=== PATIENT | female | born 1995 | race Caucasian/White ===

== ENCOUNTER 2018-11-12 23:49 | Observation (INO) | payer OTHER ==
[~2018-11-12] VITALS: Ht 170.2 cm; Wt 79.2 kg
[2018-11-13] MEDS ORDERED: FERROUS SULFAT325 MG PO (10:22)
[2018-11-13] MEDS ORDERED: PRENATAL ONE T1 EACH PO (10:23)
[2018-11-13] MEDS ORDERED: DULCOLAX5 MG PO (10:24)
--- NOTE | 2018-12-03 07:14 | PREHP ---
[facility] [address], [place] [address] Signed ADMISSION DATE: 11/12/2018 CHIEF COMPLAINT: bleeding. HISTORY OF PRESENT ILLNESS: Ms. Jack is a pleasant 23-year-old, G2, P2-0-0-2 white female who presents to the emergency department complaining of 1 hour of very heavy vaginal bleeding. The patient delivered six weeks ago at [facility] in [facility] and reports that her was uncomplicated. However, at the time of delivery, she did develop a hemorrhage that was treated with medicines and she did receive 2 units of transfusion. She reports that she was discharged without incidence on iron and that her bleeding continued approximately two weeks. She has had some spotting off and on, but early this morning or late last night, she developed acute onset of heavy vaginal bleeding, passing large clots. She complains of being lightheaded and very anxious. She does admit to intercourse earlier in the day and also vigorous exercise. PAST MEDICAL HISTORY: 1. History of hemorrhage. 2. History of IV drug use in the past. SURGICAL HISTORY: None. FAMILY HISTORY: Noncontributory. No family history of bleeding disorders. SOCIAL HISTORY: Denies tobacco, alcohol, or current drug use. 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 REVIEW OF SYSTEMS: A complete review of systems was performed, negative except per HPI. PHYSICAL EXAMINATION: GENERAL: The patient is a healthy-appearing 23-year-old, lying in hospital bed with a blood-soaked chucks and peripad. She appears anxious. HEENT: Normocephalic, atraumatic. NECK: Trachea midline. No masses. CHEST: Normal chest excursion. No shortness of breath. HEART: Regular rate and rhythm. LUNGS: Clear to auscultation bilaterally. ABDOMEN: Soft, nondistended, nontender. No surgical scars. Electronically Signed By: HAILEY WHEELER DO 12/03/18 0714 PATIENT NAME: CRISPIN JACK PREOPERATIVE H&P DATE OF : [birth year] REPORT #: [id number] PHYSICIAN: HAILEY WHEELER DO PCP: NO PRIMARY CARE PHYSICIAN REPORT IS CONFIDENTIAL AND NOT TO BE RELEASED WITHOUT AUTHORIZATION [facility] [address] [place], [place] [address] Signed EXTREMITIES: Normal. PELVIC: Slightly enlarged uterus, approximately eight weeks in size. The patient does have brisk bright red bleeding from the vagina. There is no vaginal laceration. The cervix appears normal. Bimanual evacuation of clot was performed and the uterus was massaged and the bleeding has stopped. No adnexal masses or other abnormalities. LABORATORY DATA: Sodium 139, potassium 3.2, creatinine 0.74, glucose 99. Fibrinogen is 292. WBC 7.2, hemoglobin 14.8 preoperative, and platelets 178. A quant is negative at 0.17. Her AST is significantly elevated at 173 and ALT is significantly elevated at 335. ASSESSMENT: 1. Delayed hemorrhage. 2. History of IV drug use. PLAN: The patient with delayed hemorrhage. She does have brisk bleeding that did improve with fundal massage. However, due to approximately 800 of bleeding noted at that time, I recommended exam under anesthesia and dilation and gentle curettage. The patient is extremely anxious and requests a hysterectomy. We discussed that this is not indicated at this time, but that, should a hysterectomy need to be performed to save her life, this would be completed. The patient will receive tranexamic acid 1 g IV now and doxycycline 200 mg p.o. preoperatively. We reviewed D and C in detail including risks and benefits. Risks include, but are not limited to, perforation, infection, or development of intrauterine adhesions. The patient understands and wishes to proceed with the procedure. Hailey Wheeler DO JDW/MODL /[id number] Copies: ~ Electronically Signed By: HAILEY WHEELER DO 12/03/18 0714 PATIENT NAME: CRISPIN JACK ABAD PREOPERATIVE H&P DATE OF : [birth year] REPORT #: [id number] PHYSICIAN: HAILEY WHEELER DO PCP: NO PRIMARY CARE PHYSICIAN REPORT IS CONFIDENTIAL AND NOT TO BE RELEASED WITHOUT AUTHORIZATION
--- NOTE | 2018-12-03 07:17 | OR ---
[facility] [address] [facility] [place], [place] [address] Signed DATE OF OPERATION: 11/13/2018 SURGEON: Hailey Wheeler DO PREOPERATIVE DIAGNOSIS: Delayed hemorrhage, approximately six weeks . POSTOPERATIVE DIAGNOSIS: Delayed hemorrhage, approximately six weeks . PROCEDURES PERFORMED: 1. Exam under anesthesia. 2. Dilation and curettage. ANESTHESIA: General. ESTIMATED BLOOD LOSS: 500 mL. SPECIMEN: Endometrial curettings. FINDINGS: Normal external genitalia, normal vagina, normal cervix. Brisk bleeding noted when the patient was brought back to the OR. There was a small amount of debris noted at the time of endometrial curettage; however, no obvious retained products of conception. Hemostasis at the end of the procedure. COMPLICATIONS: None. INDICATIONS: Ms. Jack is a pleasant 23-year-old G4, P2-0-2-2, who is approximately six weeks , who presents to the ER complaining of new onset brisk bleeding. She did suffer from immediate hemorrhage with her last , but reports her bleeding improved until last night. The patient does admit to recent intercourse and exercise. The patient was treated with tranexamic acid and Pitocin as well as uterine massage in the emergency department, but brisk bleeding continued. Decision was made to proceed with exam under anesthesia and dilation and curettage. Risks, benefits, and Electronically Signed By: HAILEY WHEELER DO 12/03/18 0717 PATIENT NAME: CRISPIN JACK OPERATIVE REPORT DATE OF : [birth year] REPORT #: [id number] PHYSICIAN: HAILEY WHEELER DO PCP: NO PRIMARY CARE PHYSICIAN REPORT IS CONFIDENTIAL AND NOT TO BE RELEASED WITHOUT AUTHORIZATION [facility] [address] [place], [place] [address] Signed alternatives were discussed in detail. Risks include, but are not limited to perforation, infection, and development of intrauterine adhesions. The patient understands and agrees. TECHNIQUE: The patient was taken to the operating room where a time-out was performed to confirm correct patient, correct procedure. General anesthesia was adequately established. The patient was prepped and draped in the dorsal lithotomy position with her feet in Yellofin stirrups. ICPs were on and running and no heparin was indicated. The patient did receive doxycycline 200 mg p.o. preoperatively per SCIP protocol. A weighted speculum was placed in the vagina and while the patient was being prepped, brisk bleeding again was noted. The weighted speculum was placed and the anterior lip of the cervix was grasped with a long Allis. The cervix was dilated to #13 Hegar dilator and a large curette was then introduced into the uterine cavity and slowly advanced to the fundus. Circumferential sharp curettage was performed that removed clot and a adewf-jj-sbjovsmv amount of debris. This was sent to pathology for further evaluation. After circumferential curettage was performed, bleeding was significantly improved, however, did continue small amounts. Bimanual pressure was held for 5 minutes and the patient received Methergine 0.2 mg IM x1 dose. Bleeding then stopped, and the patient was observed for 5 to 10 minutes with no additional bleeding noted. The patient was then taken to the PACU in good and stable condition. Sponge, needle, and instrument counts correct x2 at the end of the procedure. Hailey Wheeler DO JDW/MODL /[id number] Copies: ~ Electronically Signed By: HAILEY WHEELER DO 12/03/18 0717 PATIENT NAME: CRISPIN JACK ABAD OPERATIVE REPORT DATE OF : [birth year] REPORT #: [id number] PHYSICIAN: HAILEY WHEELER DO PCP: NO PRIMARY CARE PHYSICIAN REPORT IS CONFIDENTIAL AND NOT TO BE RELEASED WITHOUT AUTHORIZATION
== END 2018-11-13 21:15 | disposition home or self-care (01) ==
LOC: ED 23:49 → MS 23:53 → ED 11-13 03:25 → MS 11-13 03:25
PROVIDERS: ADMIT Obstetrics & Gynecology
PROC: 10D17ZZ Extraction of Products of Conception, Retained, Via Natural or Artificial Opening (ICD-10-PCS; principal; 2018-11-13 03:20)
DX: O72.2 Delayed and secondary postpartum hemorrhage (principal); O99.345 Other mental disorders complicating the puerperium; F41.9 Anxiety disorder, unspecified; O99.89 Other specified diseases and conditions complicating pregnancy, childbirth and the puerperium; R74.0 Nonspecific elevation of levels of transaminase and lactic acid dehydrogenase [LDH]; O90.81 Anemia of the puerperium; D62 Acute posthemorrhagic anemia
CPT/HCPCS: 00952; 36415; 80053; 81001; 84702; 84703; 85025; 85384; 85610; 85730; 86850; 86900; 86901; 86920; 88305; 96361; 96374; 96375; 99284-25; G0378; J0330; J2210; J2250; J2405; J2590; J2704; J7030

== ENCOUNTER 2018-11-15 08:20 | Emergency (ER) | payer OTHER ==
[~2018-11-15] VITALS: Ht 170.2 cm; Wt 79.2 kg
[~2018-11-15 08:20] MED LIST: DULCOLAX5 MG PO; FERROUS SULFAT325 MG PO; PRENATAL ONE T1 EACH PO
--- OUTSIDE RECORDS SUMMARY | 2018-11-15 08:24 | XMS ---
PreManage Notification: CRISPIN WHALEY Security Emergency Medicine Medical Director Events No recent Security Events currently on file CRITERIA MET - [facility] - 2 Visits in 30 Days CARE PROVIDERS BONIFACIO MAGANA Nurse Practitioner Current PHONE: Unknown SHARON YAO Nurse Practitioner Current PHONE: Unknown NON ESTABLISHED Primary Care Current PHONE: [phone] Holly has no Care Guidelines for this patient. [place] VISIT COUNT (12 MO.) 2 [facility] 2 [facility]clean TOTAL 4 NOTE: Visits indicate total known visits. ED/UCC VISIT TRACKING (12 MO.) 11/15/2018 08:21 [facility] [place] TYPE: Emergency COMPLAINT: - VAG BLEEDING,ABD PAIN 11/12/2018 23:52 [facility] [place] TYPE: Emergency COMPLAINT: - HEMMORHAGE 02/05/2018 09:56 [facility] TYPE: Emergency DIAGNOSES: - Threatened - abdominal pain; poss - Other specified related conditions, first trimester - Abdominal Pain - Pelvic and perineal pain 01/17/2018 22:04 [facility] TYPE: Emergency DIAGNOSES: - Emesis - Diarrhea - Vomiting, unspecified - Diarrhea, unspecified INPATIENT VISIT TRACKING (12 MO.) 11/12/2018 23:53 [facility] [place] TYPE: Medical Surgical COMPLAINT: - DELAYED HEMORRHAGE DIAGNOSES: - Other specified diseases and conditions complicating , childbirth and the puerperium - Anxiety disorder, unspecified - Other mental disorders complicating the puerperium - Anemia of the puerperium - Nonspecific elevation of levels of transaminase and lactic acid dehydrogenase [LDH] - Abnormal uterine and vaginal bleeding, unspecified - Delayed and secondary hemorrhage - Acute posthemorrhagic anemia 09/24/2018 20:38 [facility] TYPE: Obstetrics COMPLAINT: - SCHEDULED INDUCTION DIAGNOSES: 0. Encounter for supervision of normal , unspecified, unspecified trimester 0. Encounter for full-term uncomplicated delivery 1. Other infections with a predominantly sexual mode of transmission complicating childbirth 1. Encounter for supervision of normal , unspecified, unspecified trimester 2. Acute posthemorrhagic anemia 3. Single live 4. Delayed and secondary hemorrhage 5. Herpesviral infection of urogenital system, unspecified 6. First degree perineal laceration during delivery 7. 39 weeks gestation of 8. Anemia of the puerperium [email or web address]
== END 2018-11-15 10:20 | disposition home or self-care (01) ==
LOC: ED 08:20
DX: N93.9 Abnormal uterine and vaginal bleeding, unspecified (principal); D64.9 Anemia, unspecified; Z79.899 Other long term (current) drug therapy; Z87.891 Personal history of nicotine dependence
CPT/HCPCS: 80053; 85025; 86850; 86900; 86901; 96360; 99284-25; J7030

== ENCOUNTER 2020-07-16 16:56 | Emergency (ER) | payer OTHER ==
[~2020-07-16] VITALS: Ht 170.2 cm; Wt 81.7 kg
--- OUTSIDE RECORDS SUMMARY | ~2020-07-16 | XMS | Encounter Summary ---
Demographics + + + | Address | [address] | | | [place] [address] | + + + | Home Phone | | + + + | Preferred Language | Unknown | + + + | Marital Status | Single | + + + | Advent Affiliation | Unknown | + + + | Race | White | + + + | Ethnic Group | Not or | + + + Author + + + | Author | [facility] | | | and [place] | + + + | Organization | [facility] | | | and [place] | + + + | Address | Unknown | + + + | Phone | Unavailable | + + + Support + + +---------+ + | Name | Relationship | Address | Phone | + + +---------+ + | Jennifer Jack | ECON | Unknown | | + + +---------+ + | Jennifer Jack | ECON | Unknown | | + + +---------+ + Care Team Providers + +------+ + | Care Pulverizer Operator Name | Role | Phone | + +------+ + | Elva Cruz MD | PCP | | + +------+ + Reason for Visit + +--------+ + | Reason | Onset | Comments | | | Date | | + +--------+ + | Medication Question | 05/14/ | | | | 2018 | | + +--------+ + Encounter Details +--------+ + + + + | Date | Type | Department | Care Team | Description | +--------+ + + + + | 05/14/ | Telephone | [facility] | Scott Reyna, | Medication Question | | 2019 | | MED CTR | PharmD [address] | | | | | PHARMACOTHERAPY | [place], [place] | | | | | CLINIC [address] | [id number] | | | | | [place], [place] | | | | | | [address] | | | | | | [phone] | | | +--------+ + + + + Social History + + + +--------+ + | Tobacco Use | Types | Packs/Day | Years | Date | | | | | Used | | + + + +--------+ + | Former Smoker | Cigarettes | 0.25 | 6 | Quit: 2017 | + + + +--------+ + + +---+---+---+ | Smokeless Tobacco: | | | | | Never Used | | | | + +---+---+---+ + + +---------+ + | Alcohol Use | Drinks/Week | oz/Week | Comments | + + +---------+ + | No | | | | + + +---------+ + + + + | Sex Assigned at | Date Recorded | | | | + + + | Not on file | | + + + documented as of this encounter Miscellaneous Notes Telephone Encounter - Scott Reyna PharmD - 05/14/2019 10:53 AM PDTFormatting of this no te might be different from the original. [facility] HEPATITIS C Medication Start Provider: Scott Reyna PharmD Visit Date: 05/14/2019 Patient: Chaparrita Jack : 1995 CSN: [id number] Referral Information Referring Provider: Tavia Mora Medication to be started: Mavyret Medication Therapy Duration: 8 weeks Hep C indications: B18.2 HCV Genotype: 1a HCV RNA Result and Date: 822,299 03/26/2019 HIV: neg APRI=0.86 ASSESSMENT Reason for Visit: Start Hepatitis C treatment as planned. Chaparrita Jack is a 23 y.o. female who has been referred to the [facility] by Tavia Mora for hepatitis C treatment. Chaparrita has been prescribed Mavyret 100 mg/40 mg three tablets by mouth daily for 8 weeks. Chaparrita's insurance company has authorized the prescribed Hepatitis C treatment and Chaparrita r eceived the medication from the pharmacy and has not begun taking her prescribed doses yet. PLAN 1. Chaparrita will start Mavyret on 05/14. 2. Chaparrita does not report medication changes. 3. Chaparrita will report adverse drug reactions to the [facility]. Sebastian maxwell verbalized understanding of common adverse drug reactions and severe drug reactions. 4. Chaparrita lab schedule is as follows: -2 weeks: 05/28/19 -1 month: 06/11/19 -2 months: 07/09/19 -SVR12: 10/01/19 Patient understands to have labs checked at these times and was given a copy of the lab [facility]. Patient prefers to have labs drawn at [facility] in [place]. 5. Chaparrita received education about their hepatitis C medication and signed teaching contrac t. 6. Chaparrita has questions regarding hep B vaccination . Reviewed that her Hep B labs showed she is not immune to the virus but that she also has never been exposed to it either. Recom mended that she can start the Hep A/B vaccine series at any point in time during treatment a t most local pharmacies. Reassured her that because she has never been exposed to Hep B the Mavyret medication will not give her Hep B. If she has further questions she is to call an d discuss them with me. 03/26- Labs from [facility] HBsAG- negative Anti-HBs- negative Anti-HBc- negative Subjective/Objective Hepatitis C was diagnosed prior to referral to our clinic and confirmed with a positive HCV RNA test and positive anti-HCV antibody test. Patient does not have a history of liver brunner splant. 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 CrCl cannot be calculated (No order found.). No results found for this or any previous visit. HCV Quantitative Date Value Ref Range Status 11/21/2018 133,707 Final HIV 1/2 Ag/Ab Date Value Ref Range Status 11/21/2018 Non Reactive Final Medications: Outpatient Medications Etonogestrel (NEXPLANON SC) Inject under the skin. ferrous sulfate (IRON) 325 (65 Fe) MG TABS take 1 tablet by mouth every 12 hours glecaprevir-pibrentasvir (MAVYRET) 100-40 mg per tablet Take 3 tablets by mouth daily (wit h breakfast) for 56 days. ibuprofen (ADVIL, MOTRIN) 200 mg tablet Take 200 mg by mouth every 6 hours as needed for P ain or Headaches. I spent 5 minutes on the phone with the patient, with over 50% of time spent in education rene Cheatham's medications, the risks and benefits of proceeding as above, and answering questio ns regarding treatment and outcomes. Scott Reyna, PharmD DATE/TIME: 05/14/2019 10:53 documented in this encounter Plan of Treatment Not on filedocumented as of this encounter Visit Diagnoses Not on filedocumented in this encounter"
--- OUTSIDE RECORDS SUMMARY | ~2020-07-16 | XMS | Encounter Summary ---
Demographics + + + | Address | [address] | | | [place] [address] | + + + | Home Phone | | + + + | Preferred Language | Unknown | + + + | Marital Status | Single | + + + | Mandaen Affiliation | Unknown | + + + | Race | White | + + + | Ethnic Group | Not or | + + + Author + + + | Author | [facility] | | | and [place] | + + + | Organization | [facility] | | | and [...] Team Providers + +------+ + | Care Pipe Fitter Helper Name | Role | Phone | + +------+ + | Elva Cruz MD | PCP | | + +------+ + Reason for Visit + +--------+ + | Reason | Onset | Comments | | | Date | | + +--------+ + | Medication Prior | 05/09/ | | | Authorization | 2019 | | + +--------+ + Encounter Details +--------+ + + + + | Date | Type | Department | Care Team | Description | +--------+ + + + + | 05/09/ | Telephone | [facility] | Scott Reyna, | Medication Prior | | 2019 | | MED CTR | PharmD [address] | Authorization | | | | PHARMACOTHERAPY | [place], [place] | | | | | CLINIC [address] | [id number] | | | | | [place], [place] | | | | | | [address] | | | | | | [phone] | | | +--------+ + + + [...] Telephone Encounter - Scott Reyna PharmD - 05/09/2019 1:19 PM PDT1st attempt: no answe r left message. Wanted to update Chaparrita about her PA for the Mavyret has been approved. She needs to call [facility] pharmacy to get set up for delivery and then call me back when she gets the medication to get set up for lab schedule. Scott Reyna PharmD 05/09/2019 13:21 documented in this encounter Plan of Treatment Not on filedocumented as of this encounter Visit Diagnoses Not on filedocumented in this encounter"
--- OUTSIDE RECORDS SUMMARY | ~2020-07-16 | XMS | Encounter Summary ---
Demographics + + + | Address | [address] | | | [place] [address] | + + + | Home Phone | | + + + | Preferred Language | Unknown | + + + | Marital Status | Single | + + + | Mormon Affiliation | Unknown | + + + | Race | White | + + + | Ethnic Group | Not or | + + + Author + + + | Author | [facility] | | | and [place] | + + + | Organization | [facility] | | | and [...] Team Providers + +------+ + | Care Induction Brazer Name | Role | Phone | + +------+ + | Elva Cruz MD | PCP | | + +------+ + Encounter Details +--------+ + + + + | Date | Type | Department | Care Team | Description | +--------+ + + + + | 06/07/ | Orders Only | [facility] | Scott Reyna W, | Chronic hepatitis C | | 2019 | | MED CTR | PharmD [address] | without hepatic coma | | | | PHARMACOTHERAPY | [place], [place] | (HCC) (Primary Dx) | | | | CLINIC [address] | [id number] | | | | | [place], [place] | | | | | | [address] | | | | | | [phone] | | | +--------+ + + + [...] + + documented as of this encounter Plan of Treatment Not on filedocumented as of this encounter Visit Diagnoses + + | Diagnosis | + + | Chronic hepatitis C without hepatic coma (HCC) - Primary | + + documented in this encounter"
--- OUTSIDE RECORDS SUMMARY | ~2020-07-16 | XMS | Encounter Summary ---
Demographics + + + | Address | [address] | | | [place] [address] | + + + | Home Phone | | + + + | Preferred Language | Unknown | + + + | Marital Status | Single | + + + | Sabianism Affiliation | Unknown | + + + | Race | White | + + + | Ethnic Group | Not or | + + + Author + + + | Author | [facility] | | | and [place] | + + + | Organization | [facility] | | [...] Team Providers + +------+ + | Care Coordinate Measuring Machine Operator Name | Role | Phone | + +------+ + | Elva Cruz MD | PCP | | + +------+ + Reason for Visit + +--------+ + | Reason | Onset | Comments | | | Date | | + +--------+ + | Lab Order | 10/03/ | | | | 2019 | | + +--------+ + Encounter Details +--------+ + + + + | Date | Type | Department | Care Team | Description | +--------+ + + + + | 10/03/ | Telephone | [facility] | Scott Reyna, | Lab Order | | 2019 | | MED CTR | PharmD [address] | | | | | PHARMACOTHERAPY | [place], [place] | | | | | CLINIC [address] | [id number] | | | | | [place], [place] | | | | | | [address] | | | | | | [phone] | | | +--------+ + + + [...] Telephone Encounter - Scott Reyna PharmD - 10/03/2019 2:13 PM Alexander called back an suzie I gave her the message. She will go down soon she said. Scott Reyna PharmD 10/03/2019 2:14 PM documented in this encounter Plan of Treatment Not on filedocumented as of this encounter Visit Diagnoses Not on filedocumented in this encounter"
--- OUTSIDE RECORDS SUMMARY | ~2020-07-16 | XMS | Encounter Summary ---
Demographics + + + | Address | [address] / [address] | | | [place] [address] | + + + | Home Phone | | + + + | Preferred Language | Unknown | + + + | Marital Status | Single | + + + | Church Affiliation | Unknown | + + + | Race | White | + + + | Ethnic Group | Not or | + + + Author + + + | Author | [facility] | | | and [place] | + + + | Organization | [facility] | | [...] Team Providers + +------+ + | Care Cant Hooker Name | Role | Phone | + +------+ + | Elva Cruz MD | PCP | | + +------+ + Reason for Visit + +--------+ + | Reason | Onset | Comments | | | Date | | + +--------+ + | Lab Results | 10/11/ | | | | 2019 | | + +--------+ + Encounter Details +--------+ + + + + | Date | Type | Department | Care Team | Description | +--------+ + + + + | 10/11/ | Telephone | [facility] | Scott Reyna, | Lab Results | | 2019 | | [facility] | PharmD [address] | | | | | PHARMACOTHERAPY | [place], [place] | | | | | CLINIC [address] | [id number] | | | | | [place], [place] | | | | | | [address] | | | | | | [phone] | | | +--------+ + + + [...] Miscellaneous Notes Telephone Encounter - Scott Reyna [place] - 10/11/2019 1:20 PM PSTFormatting of this no te might be different from the original. HEPATITIS C CLINIC End of Treatment Review Provider: Scott Reyna PharmD Visit Date: 10/11/2019 Patient: Chaparrita Jack : 1995 CSN: [id number] Referral Information Referring Provider: Tavia Mora Medication to be started: Mavyret Medication Therapy Duration: 8 weeks Hep C indications: B18.2 HCV Genotype: 1a HCV RNA Result and Date: 822,299 03/26/2019 HIV: neg APRI=0.86 ASSESSMENT End of medication treatment for hepatitis C treatment. Ms. Jack is a 24 y.o. female treated for HCV. Chaparrita Jack has achieve a sustained vir ologic response at 12 weeks post hepatitis C therapy. PLAN We are now transferring this patients care back to the referring provider for further foll ow up and ongoing screening. Patient will be discharged from Hep[facility] Pharmacotherapy [facility] at this time. We have contacted the patient and discussed the SVR-12 results LABORATORY VALUES HCV Quantitative Date Value Ref Range Status 11/21/2018 133,707 Final Total time spent on the phone with Chaparrita was 5 minutes with greater than 50% of time spent reviewing medications with patient, counseling, education, and/or coordinating care as outl ined above. Scott Reyna PharmD DATE/TIME: 10/11/2019 1:20 PM elephone Encounte r - Scott Reyna PharmD - 10/11/2019 10:14 AM PST2nd attempt: Person who answered the ad ne said Chaparrita was at work. Left message to have her call back when she could. SVR12 showed not detected. She is considered cured. Scott Reyna PharmD 10/11/2019 10:32 AM documented in thi s encounter Plan of Treatment Not on filedocumented as of this encounter Visit Diagnoses + + | Diagnosis | + + | History of hepatitis C Personal history of other infectious and parasitic disease | + + documented in this encounter"
--- OUTSIDE RECORDS SUMMARY | ~2020-07-16 | XMS | Encounter Summary ---
Demographics + + + | Address | [address] | | | [place] [address] | + + + | Home Phone | | + + + | Preferred Language | Unknown | + + + | Marital Status | Single | + + + | Anabaptism Affiliation | Unknown | + + + | Race | White | + + + | Ethnic Group | Not or | + + + Author + + + | Author | [facility] | | | and [place] | + + + | Organization | [facility] | | | and [place] | + + + | Address | Unknown | + + + | Phone | Unavailable | + + + Support + + +---------+ + | Name | Relationship | Address | Phone | + + +---------+ + | Jennifer Whaley | ECON | Unknown | | + + +---------+ + | Jennifer Whaley | ECON | Unknown | | + + +---------+ + Care Team Providers + +------+ + | Care Full Stack Python Developer Name | Role | Phone | + +------+ + | Kyra Lopes | PCP | | + +------+ + Reason for Visit Auth/Cert +--------+--------+ + + + + | Status | Reason | Specialty | Diagnoses / | Referred By | Referred To | | | | | Procedures | Contact | Contact | +--------+--------+ + + + + | Closed | | | Diagnoses | | | | | | | Tubal | | | | | | | | | | | | | | without | | | | | | | intrauterine | | | | | | | | | | | | | | Unspecified | | | | | | | symptom | | | | | | | associated | | | | | | | with female | | | | | | | genital | | | | | | | organs | | | | | | | Tubal | | | | | | | | | | | | | | without | | | | | | | intrauterine | | | | | | | , | | | | | | | Unspecified | | | | | | | symptom | | | | | | | associated | | | | | | | with female | | | | | | | genital | | | | | | | organs | | | | | | | Procedures | | | | | | | [place] | | | | | | | LAP,DIAGNOST | | | | | | | IC ABDOMEN | | | | | | | LAPAROSCOPY | | | | | | | OPERATIVE | | | +--------+--------+ + + + + Encounter Details +--------+---------+ + + + | Date | Type | Department | Care Team | Description | +--------+---------+ + + + | 07/09/ | Surgery | [facility] | Tanika Vidales, | DIAGNOSTIC | | 2013 | | [facility] | MD [address] | LAPAROSCOPY, Rt | | | | OP [address] | [address] [place], | Salphingectomy | | | | [place], [place] | [place] [address] | | | | | [address] | [phone] | | | | | [phone] | | | +--------+---------+ + + + Social History + + + +--------+------+ | Tobacco Use | Types | Packs/Day | Years | Date | | | | | Used | | + + + +--------+------+ | Current Every Day | Cigarettes | 0.25 | 6 | | | Smoker | | | | | + + + +--------+------+ + +---+---+---+ | Smokeless Tobacco: | | [...] + + documented as of this encounter Last Filed Vital Signs + + + + + | Vital Sign | Reading | Time Taken | Comments | + + + + + | Blood Pressure | 106/71 | 07/09/2014 2:50 PM | | | | | PDT | | + + + + + | Pulse | 71 | 07/09/2014 2:50 PM | | | | | PDT | | + + + + + | Temperature | 37 C (98.6 F) | 07/09/2014 2:50 PM | | | | | PDT | | + + + + + | Respiratory Rate | 15 | 07/09/2014 2:50 PM | | | | | PDT | | + + + + + | Oxygen Saturation | 97% | 07/09/2014 2:50 PM | | | | | PDT | | + + + + + | Inhaled Oxygen | - | - | | | Concentration | | | | + + + + + | Weight | 89.2 kg (196 lb 10.4 | 07/09/2014 10:33 AM | | | | oz) | PDT | | + + + + + | Height | 170.2 cm (5' 7") | 07/09/2014 10:33 AM | | | | | PDT | | + + + + + | Body Mass Index | 30.8 | 07/09/2014 10:33 AM | | | | | PDT | | + + + + + documented in this encounter Discharge Instructions Instructions Gabbi Salmeron RN - 07/09/2014 Discharge Instructions for Gynecologic Surgery You had gynecologic surgery. This sheet contains information about what you can and can t do after your surgery. Remember, you need to take it easy. Activity Continue the coughing and deep breathing exercises that you learned in the hospital. Limit your activity for4-6weeks. Don t lift anything heavier than5-10pounds. Avoid strenuous activities, such as mowing the lawn, vacuuming, or playing sports. Limit your activity to short, slow walks. Gradually increase your pace and distance as y ou feel able. Listen to your body. If an activity causes pain, stop. Don t drive [id number]. You may ride in a car for short trips. Rest when you are tired. Don t have sexual intercourse or use tampons or douches until your doctor says it s safe to do so. Home Care Always keep your incision clean and dry. Shower as needed. Wash your incision gently with mild soap and warm water and pat dry. Check your temperature every day goh6nisb(s) after your surgery. Take your medication exactly as instructed by your doctor. Return to your diet as you feel able. Eat a healthy, well-balanced diet. Avoid constipation. Use laxatives, stool softeners, or enemas as directed by your doctor. Eat more high-fiber foods. Drink6-8 glasses of water every day, unless directed otherwise. Follow-Up Make a follow-up appointment as directed by our staff. When to Call Your Doctor Call your doctor right away if you have any of the following: Fever .5F (38.6C) or chills Bright red vaginal bleeding or afoul-smellingdischarge Vaginal bleeding that soaks more than onesanitary pad per hour Trouble urinating or burning sensationwhen you urinate Severe abdominal pain or bloating Redness, swelling, or drainage at your incision site Shortness of breath [id number] [facility], [address] [place] [address], [place] [id number]. All rights reserve d. This information is not intended as a substitute for professional medical care. Always fo llow your healthcare professional's instructions. Anesthesia: After Your Surgery You ve just had surgery. During surgery, you received medication called anesthesia to anaya p you comfortable and pain-free. After surgery, you may experience some pain or nausea. This is normal. Here are some tips for feeling better and recovering after surgery. Stay on schedule with your medication. Going Home Your doctor or nurse will show you how to take care of yourself when you go home. He or she will also answer your questions. Have an adult family member or friend drive you home. For the first 24 hours after your surgery: Do not drive or use heavy equipment. Do not make important decisions or sign legal documents. Avoid alcohol. Have someone stay with you, if needed. He or she can watch for problems and help keep yo u safe. Be sure to keep all follow-up doctor s appointments. And rest after your procedure for as long as your doctor tells you to. Coping with Pain If you have pain after surgery, pain medication will help you feel better. Take it as direc fuad, before pain becomes severe. Also, ask your doctor or pharmacist about other ways to con trol pain, such as with heat, ice, and relaxation. And follow any other instructions your benítez rgeon or nurse gives you. Tips for Taking Pain Medication To get the best relief possible, remember these points: Pain medications can upset your stomach. Taking them with a little food may help. Most pain relievers taken by mouth need at least 20 to 30 minutes to take effect. Taking medication on a schedule can help you remember to take it. Try to time your medic ation so that you can take it before beginning an activity, such as dressing, walking, or si tting down for dinner. Constipation is a common side effect of pain medications. Contact your doctor before curry ing any medications like laxatives or stool softeners to help relieve constipation. Also ask about any dietary restrictions, because drinkinglots of fluids andeating foodslikef ruits and vegetables that are high in fiber can also help. Remember, don t take laxatives unless your surgeon has prescribed them. Mixing alcohol and pain medication can cause dizziness and slow your breathing. It can e kenisha be fatal. Don t drink alcohol while taking pain medication. Pain medication can slow your reflexes. Don t drive or operate machinery while taking pain medication. If your health care provider advises you to take acetaminophen, the generic name for Tyleno l and other brand-name pain relievers, to help relieve your pain, ask for a daily dose. Negra mber that acetaminophen or other pain relievers may interact with prescription medicines or other fnnr-ryd-auttibq (OTC) drugs. The FDA recommends reading OTC medication labels careful ly to clearly understand the list of active ingredients, directions, and any precautions to help avoid taking too muchacetaminophen. If you have questions, ask your pharmacist or [facility] care provider. Managing Nausea Some people have an upset stomach after surgery. This is often due to anesthesia, pain, yasmin n medications, or the stress of surgery. The following tips will help you manage nausea and get good nutrition as you recover. If you were on a special diet before surgery, ask your do ctor if you should follow it during recovery. These tips may help: Don t push yourself to eat. Your body will tell you what to eat and when. Start off with clear liquids and soup. They are easier to digest. Progress to semisolids (mashed potatoes, applesauce, and gelatin) as you feel ready. Slowly move to solid foods. Don t eat fatty, rich, or spicy foods at first. Don t force yourself to have three large meals a day. Instead, eat smaller amounts mor e often. Take pain medications with a small amount of solid food, such as crackers or toast to av oid nausea. Call Your Surgeon If You still have pain an hour after taking medication (it may not be strong enough). You feel too sleepy, dizzy, or groggy (medication may be too strong). You have side effects like nausea, vomiting, or skin changes (rash, itching, or hives). [id number] [facility], [address] [place] [address], [place] [address]. All rights reserve d. This information is not intended as a substitute for professional medical care. Always fo llow your healthcare professional's instructions. documented in this encounter Medications at Time of Discharge + + + +---------+ + + | Medication | Sig | Dispensed | Refills | Start | End Date | | | | | | Date | | + + + +---------+ + + | | Take 1-2 tablets by | 35 | 0 | 07/09/20 | | | HYDROcodone-acetamin | mouth every 6 hours | tablet | | 14 | 6 | | ophen (NORCO) 5-325 | as needed for Pain. | | | | | | mg per tablet | | | | | | + + + +---------+ + + documented as of this encounter [facility] - 07/11/2014 12:00 AM PDT 14 10:08 [facility] - 07/11/2014 12:00 AM PDT Tanika Johnston MD - 07/09/2014 12:02 PM PDTI have reviewed t he History & Physical dated 07/08/14 and there are no changes I have done an appropriate pre-operative exam and there are no interval changes of signific ance to the History & Physical The surgical and postoperative plan was reviewed with the patient and all final questions w ere answered Electronically Signed by: Tanika Vidales MD 07/09/2014 12:02 documented in this encounter [facility] - 07/11/2014 12:00 AM PDT 14 10:08 AM PDTdocumented in this encounter Consult Notes Patricia Cordon RN - 07/08/2014 9:38 PM PDT07/08/14 Blood Note: Order for patient to be d rawn on admission for a T&S only on chart. (NO Blood products are ordered at this time.) Please view the details of the Resulted T&S to discover if patient is eligible for remote cross matching of RBC's. A. If patient is eligible- a statement will be present next to the Screen R esults: (Use Blood Bank Tab then click on the 'details' hyperlink) OR ( Chart Review > Labs. Then double click on the T&S) B. Lack of a statement means patient is NOT remote eligible and IF RBC's are ordered - they must be serologically cross matched at [facility] then shipped to hospital. Patricia Cordon RN Yves-Op [facility]M [employer] P M PDTdocumented in this encounter Nursing Notes Nolberto Stacy RN - 07/09/2014 1:56 PM PDTMeets discharge criteria vss sats wnl 2lnc . Lap incisions x2 bilat abd, dry and intact, yves pad also d&i. gd pain cont. With fentanyl 50 mcgs in pacu. abd obese but soft. Resting quietly remainder of assess unchanged from pre op. documented in t his encounter Miscellaneous Notes Plan of Care - [facility] - 07/11/2014 12:00 AM PDT iscellaneous - [facility] SCAN [facility] - 07/11/2014 12:00 AM PDTElec tronically signed by Lynn Hoffman at 07/16/2014 10:08 AM PDTMiscellaneous - ON[facility] SCAN [facility] - 07/11/2014 12:00 AM PDT p Note - Tanika Vidlaes MD - 07/09/2014 1:27 PM PDT Operative Note Pre-operative Diagnosis: 1. Ectopic Post-operative Diagnosis: same as above including Procedure performed: Procedure(s): LAPAROSCOPY OPERATIVE , right salpingooophorectomy Surgeon: Tanika Vidales M.D. Restaurant Hostess: Jun Palacios M.D. Anesthesia: General Findings: 1. Normal uterus and ovaries, right hydrosalpinx with probable ectopic , adhesion to omentum Pathology: Right fallopian tube Drain/Packs: none Fluids: Please see anesthesia report EBL: minimal UOP: clear urine at the end of the procedure Complications: none Indications: This is a 19 y.o. with ectopic within right fallopian tube Procedure: See dicatation Electronically Signed by: Tanika Vidales MD 07/09/2014 13:27 p Note - Tanika Vidales MD - 07/09/2014 1:22 P M PDT [facility] [address] [address] OPERATIVE REPORT TANIKA VIDALES MD Patient: CRISPIN WHALEY Admitting: TANIKA VIDALES MR #: [id number] LOC: PT TYPE: Adm Date: 07/09/2014 : 1995 PREOPERATIVE DIAGNOSIS ON THIS PATIENT: An 18-year-old patient with a previous history of ectopic treated with methotrexate with continued pain and hemoperitoneum. POSTOPERATIVE DIAGNOSIS ON THIS PATIENT: An 18-year-old patient with a previous history o f ectopic treated with methotrexate with continued pain and hemoperitoneum. PROCEDURE PERFORMED: Right salpingectomy with diagnostic laparoscopy and removal of hemop eritoneum. SURGEON: Tanika Vidales MD DEBT MANAGEMENT COUNSELOR: Jun Palacios MD COMPLICATIONS: None apparent. ESTIMATED BLOOD LOSS: Minimal from surgery; however, the peritoneum was evacuated of appr oximately 100-200 mL of hemoperitoneum. ANESTHESIA: General endotracheal. FLUIDS: Please see anesthesia report. PROCEDURE: The patient was taken back to the operating room where general anesthesia was performed without difficulty. The patient was placed in the dorsal lithotomy position in s tirrups. The patient was prepped and draped in normal sterile fashion. A Rao catheter w as placed. A timeout was performed. An umbilical incision was made and a 5 mm port was p laced after local injection. There were some issues with the insufflation. Finally, the a bdomen was insufflated and hemoperitoneum was noted along with a large right hydrosalpinx w ith remnants of an ectopic inside. This was adhered to the omentum on the right side. Thus, a right upper quadrant port and left upper quadrant port were placed. The lef t upper quadrant port was a 10 mm port. The LigaSure device was introduced and the omentum was from the right tube. The tube was then removed. Hemostasis was assured. Irrigation was performed to remove hemoperitoneum. Again, that right tube area that was li gated was hemostatic. An Endocatch bag was introduced and the right tube that contained th e ectopic was removed through the left upper quadrant port. The left upper quad rant port was then closed with a Jude-Hector device via fascial closure. All other por ts were closed with 4-0 Vicryl suture with glue over the top. The patient tolerated the pr ocedure well. Sponge, lap and needle counts were correct times 2. The patient was taken t o the recovery room in stable condition. TANIKA VIADLES MD Dictated by TANIKA VIDALES MD 07/09/2014 13:22:36 Transcribed on 07/09/2014 14:04:49 by [facility] job# [id number] Confirmation #: [id number] cc: KYRA LOPES iscellaneous - [facility] SC[facility] - 07/08/2014 12:00 AM PDT iscellaneous - ON[facility] SCAN [facility] - 07/08/2014 12:00 AM PDTElect ronically signed by Lynn Hoffman at 07/08/2014 4:44 PM PDTdocumented in this encounter Plan of Treatment + +------+--------+ + + | Name | Type | Priori | Associated Diagnoses | Order Schedule | | | | ty | | | + +------+--------+ + + | Basic Metabolic | Lab | STAT | | As Needed for 1 | | Panel | | | | Occurrences starting | | | | | | 07/09/2014 | + +------+--------+ + + documented as of this encounter Procedures + +--------+ + + + | Procedure Name | Priori | Date/Time | Associated Diagnosis | Comments | | | ty | | | | + +--------+ + + + | SURGICAL PATHOLOGY | Routin | 07/09/2014 | | Results for this | | EXAM | e | 12:57 PM | | procedure are in the | | | | PDT | | results section. | + +--------+ + + + | LAPAROSCOPY | | 07/09/2014 | Tubal | | | OPERATIVE | | 12:08 PM | without intrauterine | | | | | PDT | | | | | | | Unspecified symptom | | | | | | associated with | | | | | | female genital | | | | | | organs | | + +--------+ + + + | POCT TEST, | STAT | 07/09/2014 | | Results for this | | URINE, QUAL | | 10:41 AM | | procedure are in the | | | | PDT | | results section. | + +--------+ + + + | CBC NO DIFFERENTIAL | Routin | 07/09/2014 | | Results for this | | | e | 10:33 AM | | procedure are in the | | | | PDT | | results section. | + +--------+ + + + | TYPE AND SCREEN | STAT | 07/09/2014 | | Results for this | | | | 10:32 AM | | procedure are in the | | | | PDT | | results section. | + +--------+ + + + | POC GLUCOSE | Routin | 07/09/2014 | | Results for this | | | e | 10:28 AM | | procedure are in the | | | | PDT | | results section. 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 0 Dewayne Adames M.D. | | | Electronic signature GROSS DESCRIPTION: Received in formalin | | | labeled "Guero, right salpingectomy" consists of a 6.0 x 3.2 x 3.0 cm | | | penny-pink to purple hemorrhagic smooth to shaggy portion of soft | | | tissue with an attached 3.0 x 2.0 x 1.5 cm portion of irregular blood | | | clot. Also received within the container is a 1.5 x 1.0 x 0.9 cm | | | portion of penny-pink to purple fimbriated fallopian tube. The largest | | | portion of tissue with the attached blood clot is inked and the | | | specimen is serially sectioned to reveal red-brown congealed blood | | | clot. The luminal diameter measures 2.5 cm. No chorionic villi or | | | parts are grossly identified. Community Relations Rep sections are | | | submitted in cassettes "[id number]". () MICROSCOPIC DESCRIPTION: | | | Histologic sections of all submitted blocks are examined by light | | | microscopy. These findings, together with the gross examination, | | | support the pathologic diagnosis. A: [id number] Testing | | | performed at: [facility] | | | Jorge Mccord M.D., Director [address] [facility] [address] | | | [place] [address] | | + + + + + + + + | Performing | Address | City/State/Zipcode | Phone Number | | Organization | | | | + + + + + | [facility] | [address] | [place] [address] | | | [facility] | | | | | LABORATORY | | | | + + + + + POCT Urine Screen (07/09/2014 10:41 AM PDT) + + + + + + | Component | Value | Ref Range | Performed | Pathologist | | | | | At | Signature | + + + + + + | | Negative | | [facility] | | | Test, | | | [facility] | | | Urine, POC | | | [facility] | | | | | | LABORATORY | | + + + + + + | Internal QC | Acceptable | | [facility] | | | | | | [facility] | | | | [facility] | | | | | | LAB[facility]ATORY | | + + + + + + + + | Specimen | + + | Urine specimen | | (specimen) | + + + + + + + | Performing | Address | City/State/Zipcode | Phone Number | | Organization | | | | + + + + + | [facility] | [address] | [place], [place] | [phone] | | [facility] | | [address] | | | LABORATORY | | | | + + + + + CBC no Differential (07/09/2014 10:33 AM PDT) + +-------+ + + + | Component | Value | Ref Range | Performed | Pathologist | | | | | At | Signature | + +-------+ + + + | White Blood | 8.5 | 3.8 - 11.0 K/uL | [facility] | | | Cells | | | [facility] | | | | | [facility] | | | | | | [facility] | | | | | | [facility] | | | | | | LABORATORY | | + +-------+ + + + | Red Blood | 5.08 | 3.70 - 5.10 | [facility] | | | Cells | | M/uL | [facility] | | | | | | [facility] | | | | | | [facility] | | | | | | CENTER | | | | | | LABORATORY | | + +-------+ + + + | Hemoglobin | 14.0 | 11.3 - 15.5 | [facility] | | | | | g/dL | [facility] | | | | | | [facility] | | | | | | [facility] | | | | | | CENTER | | | | | | LABORATORY | | + +-------+ + + + | Hematocrit | 41.3 | 34.0 - 46.0 % | [facility] | | | | | | [facility] | | | | | | [facility] | | | | | | [facility] | | | | | | CENTER | | | | | | LABORATORY | | + +-------+ + + + | MCV | 81.4 | 80.0 - 100.0 fL | [facility] | | | | | | [facility] | | | | | | [facility] | | | | | | [facility] | | | | | | CENTER | | | | | | LABORATORY | | + +-------+ + + + | MCH | 27.5 | 27.0 - 34.0 pg | [facility] | | | | | | [facility] | | | | | | [facility] | | | | | | [facility] | | | | | | CENTER | | | | | | LABORATORY | | + +-------+ + + + | MCHC | 33.8 | 32.0 - 35.5 | [facility] | | | | | g/dL | [facility] | | | | | | HE[facility] | | | | | | MEDICAL | | | | | | CENTER | | | | | | LABORATORY | | + +-------+ + + + | RDW-CV | 13.2 | 11.0 - 15.5 % | [facility] | | | | | | [facility] | | | | | | [facility] | | | | | | MEDICAL | | | | | | CENTER | | | | | | LABORATORY | | + +-------+ + + + | Platelet | 177 | 150 - 400 K/uL | [facility] | | | Count | | | [facility] | | | | | | [facility] | | | | | | MEDICAL | | | | | | CENTER | | | | | | LABORATORY | | + +-------+ + + + + + | Specimen | + + | Blood specimen | | (specimen) | + + + + + + + | Performing | Address | City/State/Zipcode | Phone Number | | Organization | | | | + + + + + | [facility] | [address] | [place] [address] | | | [facility] | | | | | LABORATORY | | | | + + + + + Type and Screen (07/09/2014 10:32 AM PDT) + + + + + + | Component | Value | Ref Range | Performed | Pathologist | | | | | At | Signature | + + + + + + | ABO | O | | [facility] | | | | | | [facility] [place] | | | | | | [facility] | | | | | | [facility] | | | | | | [facility] | | | | | | [facility] | | + + + + + + | Rh Type | Positive | | [facility] | | | | | | [facility] [place] | | | | | | [facility] | | | | | | [facility] | | | | | | [facility] | | | | | | [facility] | | + + + + + + | Antibody | NegativeComment: Patient | | [facility]FER[facility] | | | Screen | is remote crossmatch | | LAB [place] | | | | eligible | | [facility] | | | | | | [facility] | | | | | | [facility] | | | | | | CENTER | | + + + + + + + + | Specimen | + + | Blood specimen | | (specimen) | + + + + + | Narrative | Performed At | + + + | Specimen Expiration Date: | [facility] | | | [place] | | | [facility] | | | [facility] | + + + + + + + + | Performing | Address | City/State/Zipcode | Phone Number | | Organization | | | | + + + + + | [facility] | [address] | [place] [address] | [phone] | | [place] [facility] | | | | | [facility] | | | | | [facility] | | | | + + + + + POC Glucose (07/09/2014 10:28 AM PDT) + +-------+ + + + | Component | Value | Ref Range | Performed | Pathologist | | | | | At | Signature | + +-------+ + + + | Glucose, | 90 | 65 - 99 mg/dL | [facility] | | | POC | | | [facility] | | [facility] | | [facility] | | | | | | [facility] | | | | | | [facility]ENTER | | | | | | LABORATORY | | + +-------+ + + + + + | Specimen | + + | | + + + + + + + | Performing | Address | City/State/Zipcode | Phone Number | | Organization | | | | + + + + + | [facility] | [address] | [place] [address] | | | [facility] | | | | | LABORATORY | | | | + + + + + documented in this encounter Visit Diagnoses + + | Diagnosis | + + | Tubal without intrauterine | + + | Unspecified symptom associated with female genital organs | + + documented in this encounter Administered Medications + +--------+ +-------+------+ + | Medication Order | MAR | Action | Dose | Rate | Site | | | Action | Date | | | | + +--------+ +-------+------+ + | bupivacaine 0.5%-epinephrine | Given | 07/09/20 | 3 mLs | | Surgical | | 1:200,000 0.5-1:048912 % | | 14 12:38 | | | Site | | injection PRN, Starting Wed | | PM PDT | | | | | 07/09/14 at 1238, Intra-op | | | | | | + +--------+ +-------+------+ + +---+---+ | | | +---+---+ + +-------+ +--------+---+---+ | fentaNYL injection 25-50 mcg | Given | 07/09/20 | 50 mcg | | | | 25-50 mcg, Intravenous, EVERY 5 | | 14 2:00 | | | | | MIN PRN, Pain, Starting Wed | | PM PDT | | | | | 07/09/14 at 1333, Maximum total | | | | | | | dose 250 mcg. PACU IV Narcotic | | | | | | | Priority: Only use fentanyl for | | | | | | | immediate post-op pain (one dose) | | | | | | | or breakthrough pain when any | | | | | | | other IV narcotics ordered have | | | | | | | been ineffective (if ordered). | | | | | | | If both morphine and | | | | | | | hydromorphone are ordered, use | | | | | | | morphine first, and use | | | | | | | hydromporphone if morphine | | | | | | | ineffective., Recovery/Phase I | | | | | | + +-------+ +--------+---+---+ +-------+ +--------+---+---+ | Given | 07/09/20 | 50 mcg | | | | | 14 1:50 | | | | | | PM PDT | | | | +-------+ +--------+---+---+ +---+---+ | | | +---+---+ + +-------+ + +---+---+ | HYDROcodone-acetaminophen | Given | 07/09/20 | 1 tablet | | | | (NORCO) 5-325 mg per tablet 1-2 | | 14 3:36 | | | | | tablet 1-2 tablet, Oral, EVERY 4 | | PM PDT | | | | | HOURS PRN, Pain, Starting Wed | | | | | | | 07/09/14 at 1429, MAX 12 tabs/24 | | | | | | | hrs. If ineffective use Mackey | | | | | | | 10 if ordered. If not | | | | | | | tolerated, use Percocet then | | | | | | | Oxycodone if ordered, | | | | | | | Post-op/Phase II | | | | | | + +-------+ + +---+---+ +-------+ + +---+---+ | Given | 07/09/20 | 1 tablet | | | | | 14 2:52 | | | | | | PM PDT | | | | +-------+ + +---+---+ +---+---+ | | | +---+---+ + +---------+ +----+---+---+ | lactated ringers (LR) infusion | New Bag | 07/09/20 | mL | | | | at 10-100 mL/hr, Intravenous, | | 14 1:03 | | | | | CONTINUOUS, Starting 07/09/14 | | PM PDT | | | | | at 1100, TKO., Pre-op | | | | | | + +---------+ +----+---+---+ +---------+ +---+ +---+ | New Bag | 07/09/20 | | 50 mL/hr | | | | 14 10:38 | | | | | | AM PDT | | | | +---------+ +---+ +---+ +---+---+ | | | +---+---+ documented in this encounter
--- OUTSIDE RECORDS SUMMARY | ~2020-07-16 | XMS | Encounter Summary ---
Demographics + + + | Address | [address] | | | [place] [address] | + + + | Home Phone | | + + + | Preferred Language | Unknown | + + + | Marital Status | Single | + + + | Yazidism Affiliation | Unknown | + + + | Race | White | + + + | Ethnic Group | Not or | + + + Author + + + | Author | [facility] | | | and [place] | + + + | Organization | [facility] | | | [...] Team Providers + +------+ + | Care Cvt Tech Name | Role | Phone | + +------+ + | Elva Cruz MD | PCP | | + +------+ + Reason for Visit +--------+--------+ + | Reason | Onset | Comments | | | Date | | +--------+--------+ + | LABS | 03/25/ | | | | 2019 | | +--------+--------+ + Encounter Details +--------+ + + + + | Date | Type | Department | Care Team | Description | +--------+ + + + + | 03/25/ | Telephone | [facility] | [facility], | LABS | | 2019 | | GASTROENTEROLOGY | [address] [address] | | | | | [address] | [address] | | | | | [address] [place], [place] | [place], [place] | | | | | [address] | [id number] | | | | | [phone] | | | +--------+ + + + [...] this encounter Miscellaneous Notes Telephone Encounter - Vidhya Hartmann CMA - 03/26/2019 9:54 AM PDTNotified patient thmo t labs have been sent over to [facility] in [place] and that she also needs an ultrasound, that order has been faxed to [facility]. Explained to patient she can just go to [facility] without an appointment. She will need to call [facility] to schedule the ultrasound. Patient verbalized understanding. elephone Encounter - Padmini Moran - 03/25/2019 4:51 PM PDTPatient return ed call to Jyoti stating "she would like those lab orders sent to [facility] in [place] ". Please advise, patient can be reached at [phone] with any additional questions.Elect ronically signed by Padmini Moran at 03/25/2019 4:53 PM PDTTelephone Encounter - Vidyha Hartmann CMA - 03/25/2019 11:22 AM PDTLeft message that Rosalie has ordered labs, need to kno w where she wants to have the orders sent to? documented in this encounter Plan of Treatment Not on filedocumented as of this encounter Visit Diagnoses Not on filedocumented in this encounter
--- OUTSIDE RECORDS SUMMARY | ~2020-07-16 | XMS | Encounter Summary ---
Demographics + + + | Address | [address] | | | [place] [address] | + + + | Home Phone [...] Author + + + | Author | [facility] | | | and [place] | + + + | Organization | [facility] | | [...] Team Providers + +------+ + | Care Neighborhood Aide Name | Role | Phone | + +------+ + | Ita Lopes | PCP | | + +------+ + Encounter Details +--------+ + + + + | Date | Type | Department | Care Team | Description | +--------+ + + + + | 02/05/ | Emergency | [facility] | Torrey Mon, | Pelvic pain | | 2018 | | [facility] | MD Reyes BARTLETT | affecting | | | | [facility] | [place] [address] | in first trimester, | | | | [address] | [phone] | antepartum; | | | | [facility] [place] | | Threatened | | | | [address] | | in first trimester | | | | [phone] | | | +--------+ + + + [...] + + + | Blood Pressure | 102/56 | 02/05/2018 12:41 PM | | | | | PDT | | + + + + + | Pulse | 70 | 02/05/2018 12:41 PM | | | | | PDT | | + + + + + | Temperature | 37.3 C (99.1 F) | 02/05/2018 12:41 PM | | | | | PDT | | + + + + + | Respiratory Rate | 16 | 02/05/2018 12:41 PM | | | | | PDT | | + + + + + | Oxygen Saturation | - | - | | + + + + + | Inhaled Oxygen | - | - | | | Concentration | | | | + + + + + | Weight | 80.1 kg (176 lb 9.4 | 02/05/2018 12:41 PM | | | | oz) | PDT | | + + + + + | Height | 170.2 cm (5' 7") | 02/05/2018 12:41 PM | | | | | PDT | | + + + + + | Body Mass Index | 27.66 | 02/05/2018 12:41 PM | | | | | PDT | | + + + + + documented in this encounter Medications at Time of Discharge + + + +---------+--------+ + | Medication | Sig | Dispensed | Refills | Start | End Date | | | | | | Date | | + + + +---------+--------+ + | busPIRone (BUSPAR) | Take 15 mg by mouth | | 0 | | | | 15 mg tablet | Daily (with lunch). | | | | 9 | | | Has not started yet, | | | | | | | suppose to start | | | | | | | later today at Noon | | | | | + + + +---------+--------+ + | citalopram | Take 20 mg by mouth | | 0 | | | | (CELEXA) 20 mg | Daily (with lunch). | | | | 9 | | tablet | | | | | | + + + +---------+--------+ + | clonazePAM | Take 1 mg by mouth | | 0 | | | | (KLONOPIN) 1 mg | Daily (with lunch). | | | | 9 | | tablet | | | | | | + + + +---------+--------+ + documented as of this encounter ED Notes Chandrika Nava ARNP - 02/05/2018 10:09 AM PDTFormatting of this note might be differ ent from the original. ED Provider Notes by ROSETTA Campos at 02/05/18 1009 Author: ROSETTA Campos Service: Emergency Department Author Type: Advanced R egistered Nurse Practitioner Filed: 02/06/1833 Date of Service: 02/05/18 100 Status: Attested Veterinary Assistant: ROSETTA Campos (Advanced Registered Nurse Practitioner) Cosigner: Tia Mon MD at 02/06/18900 Attestation signed by Torrey Mon MD at 02/06/18900 I have reviewed the note and supervised the mid-level provider. Procedures [facility] Department of Emergency Medicine No flowsheet data found. History of Present Illness Patient Identification Crispin Jack is a 22 y.o. female. Patient information was obtained from patient. History/Exam limitations: none. Patient presented to the Emergency Department by: Car Chief Complaint Chief Complaint Patient presents with Abdominal Pain left sided abdominal pain. patient has a history of tubal . Patient presents to the ED with left sided abdominal pain. Patient reports left lower quad rant abdominal pain which started 4 days ago. Patient reports that she took 2 home pregnanc y tests which were positive, last test was done 3 days ago. Patient reports sharp, shooting pain in left lower quadrant. Patient reports feeling as if she is going to start her menst rual cycle, bloated and full in the abdomen. Denies alleviating or exacerbating factors. P atient denies vaginal bleeding, back pain, fever, dysuria, or other symptoms. Patient denie s dysuria, flank pain, or syncope. Patient particularly concerned that this may represent an ectopic , as she has had 2 prior ectopics, one in 2013 and another 2014. She has one living child who is currently 5 years old. test At home x 2 as noted above.. [id number] ectopic, right fallopian tube removed. . Similar sx in past. Evaluation in the emergency department on January 17, 2018 for vomiting and diarrhea. See [facility] Department chart. Negative test at that time. Patient reports symptoms re solved without difficulty. Past Medical History Diagnosis Date Ectopic Past Surgical History Procedure Laterality Date ABDOMINAL SURGERY Removed right fallopian tube Prior to Admission medications Not on File Allergies Allergen Reactions Miconazole Nitrate Other (See Comments) BURNING AND ITCHING AT SITE Social History Social History Marital status: Single Spouse name: N/A Number of children: N/A Years of education: N/A Occupational History Not on file. Social History Main Topics Smoking status: Former Smoker Packs/day: 0.00 Quit date: 11/07/2016 Smokeless tobacco: Never Used Alcohol use Yes Comment: rarely Drug use: No Sexual activity: Yes Partners: Male control/ protection: None Other Topics Concern Not on file Social History Narrative No narrative on file History reviewed. No pertinent family history. Review of Systems Constitutional: Negative for: Chills, fever EENT: Negative for: Nasal congestion, sore throat, ear pain Respiratory: Negative for: Cough, shortness of breath, wheezing Cardiovascular : Negative for: Chest pain, palpitations Gastrointestinal: Negative for : Nausea, vomiting, diarrhea Genito-Urinary: Positive for: LLQ abdominal/pelvic pain as noted above Negative for: Dysuria, urgency, frequency, vaginal discharge , vaginal bleeding Musculoskeletal: Negative for: Joint pain, joint swelling, back pain Neurological: Negative for: Headache, numbness Dermatological: Negative for: Rash, lesion Physical Exam BP 104/66 (BP Location: Right upper arm) | Pulse 74 | Temp 98.7 F (37.1 C) (Oral) | Resp 16 | Ht 1.702 m (5' 7") | Wt 80.1 kg (176 lb 9.4 oz) | SpO2 100% | BMI 27.66 kg/m Pulse Oximetry interpretation: Normal General: Well hydrated, alert, well appearing, and in no distress, mildly anxious Eyes: Normal inspection, no pallor, non-icteric ENT: Normal Inspection, TM without erythema. Throat, no erythema no edema. Neck: Normal Inspection, supple Cardiovascular: Regular rate and rhythm, no tachycardia noted Respiratory: Breath Sounds clear to auscultation, no wheezes, rales or rhonchi, symmetric air entry Abdomen: LLQ abdominal tenderness, no guarding, no rebound Genitourinary: Pelvic Exam: deferred. Back: NO CVA tenderness. Skin: Normal color, no rash, warm and dry. Good turgor. Neuro/Psych: Alert, interactive, appropriate for circumstance. No focal sensory or mot or deficits. Medical Decision Making and Emergency Department Course Care Initiated After introducing myself to the patient, I have performed a history and physical examinawandao hieu. [facility] Patient presents with an early and abdominal pain. Complex OB history including history of ectopic of noted concern. Diagnosis considered to be most concerning f or this visit include threatened , incomplete , ectopic , and anemi a. I have ordered a CBC with diff, BHCG quant, and blood and a pelvic ultrasound. Labs resulted. CBC within normal limits, no anemia. CMP within normal limits except elev ated ALT 2 237 and AST of 49. Quantitative hCG of 3,552. CRP within normal limits. ABORH noted. O positive. Patient advised of laboratory results and positive test ultrasound ordered. Disc ussed limited findings likely on ultrasound at this early date, but importance of determinin g if the appears to be intrauterine versus ectopic reviewed. US resulted. 1. Single gestational sac, without embryo. This is either due to nonviabilit y, or very early , currently without intragestational embryo at this time. Addition al note of crescentic fluid collection about the gestational sac suggesting a subchorionic h emorrhage. This was discussed with the requesting up care provider. Consider follow-up pelvi c ultrasound, as needed. 2. Normal sonographic appearance of the ovaries Reviewed ultrasound results with Dr. Hung Urias. Reviewed labs and ultrasound results with patient and her spouse. Reviewed elevation of hC G, likely intrauterine with no evidence of ectopic at this time, as well as concer n that it is too early to determine the health development of . Discussed continued use of vitamins, importance of follow up with ADMINISTRATIVE JUDGE in the ne xt 2-3 days, and return to the emergency department if bleeding or increased pain. Patient reassessed and noted to be well appearing, continues to be mildly anxious but somew hat reassured. Stable for discharge. Vitals: 02/05/18 1003 02/05/18 1124 02/05/18 1240 BP: 104/66 102/67 102/56 BP Location: Right upper arm Left upper arm Left upper arm Pulse: 74 59 70 Resp: Temp: 98.7 F (37.1 C) 99.1 F (37.3 C) TempSrc: Oral Oral SpO2: 100% 100% 99% Weight: 80.1 kg (176 lb 9.4 oz) Height: 1.702 m (5' 7") Disposition I have discussed my clinical impression and treatment plan with the patient. We have speci fically discussed the signs and symptoms that would constitute the need for an immediate ret urn to the Emergency Department, the importance of continued outpatient follow up. Records Reviewed Old medical records. Nursing notes. Laboratory Evaluation Results Procedure Component Value Ref Range Date/Time HCG, QUANTitative (Beta HCG) [[id number]] (Abnormal) Collected: 02/05/18 1016 Order Status: Completed Specimen: Blood Updated: 02/05/18 1106 HCG,QUANTITATIVE 3,552 (H) <3 mIU/mL C-reactive protein [[id number]] Collected: 02/05/18 1016 Order Status: Completed Specimen: Blood Updated: 02/05/18 1106 CRP <0.2 <0.5 mg/dL Comprehensive metabolic panel [[id number]] (Abnormal) Collected: 02/05/18 1016 Order Status: Completed Specimen: Blood Updated: 02/05/18 1106 SODIUM 137 135 - 145 mmol/L POTASSIUM 3.5 3.5 - 4.9 mmol/L CHLORIDE 104 99 - 109 mmol/L CO2 26 23 - 32 mmol/L ANION GAP AGAP 10 5 - 20 mmol/L GLUCOSE 83 65 - 99 mg/dL BUN 9 8 - 25 mg/dL CREATININE 0.63 0.50 - 1.00 mg/dL BUN/CREAT 14 CALCIUM 9.3 8.5 - 10.5 mg/dL TOTAL PROTEIN 7.5 6.3 - 8.2 g/dL Albumin 3.8 3.6 - 5.0 g/dL GLOBULIN 3.7 1.3 - 4.9 g/dL A/G 1.0 1.0 - 2.4 TBIL 0.7 0.1 - 1.5 mg/dL ALK PHOS 35 35 - 115 U/L AST 49 (H) 10 - 45 U/L ALT 237 (H) 10 - 65 U/L EGFR >60 >60 mL/min/1.73m2 ABO/Rh [[id number]] Collected: 02/05/18 1016 Order Status: Completed Specimen: Blood Updated: 02/05/18 1041 ABO/RH(D) -- O POSITIVE Testing performed at [facility], [address], [place] [address] CBC with differential [[id number]] Collected: 02/05/18 1016 Order Status: Completed Specimen: Blood Updated: 02/05/18 1027 WBC 6.88 3.80 - 11.00 K/uL RBC 4.87 3.70 - 5.10 M/uL HGB 13.8 11.3 - 15.5 g/dL HCT 40.6 34.0 - 46.0 % MCV 83.4 80.0 - 100.0 fl MCH 28.4 27.0 - 34.0 pg MCHC 34.0 32.0 - 35.5 g/dL RDW SD 37.6 37 - 53 fl PLT 177 150 - 400 K/uL MPV 9.2 fl DIFF TYPE AUTOMATED NEUTROPHILS 49.82 % LYMPHOCYTES 41.15 % MONOCYTES 7.49 % EOSINOPHILS 0.90 % BASOPHILS 0.64 % NEUTROPHILS ABS 3.43 1.90 - 7.40 K/uL LYMPHOCYTES ABS 2.83 1.00 - 3.90 K/uL MONOCYTES ABS 0.52 0.00 - 0.80 K/uL EOSINOPHILS ABS 0.06 0.00 - 0.50 K/uL BASOPHILS ABS 0.04 0.00 - 0.10 K/uL Urinalysis (reflex to microscopic/reflex to culture) [[id number]] Collected: 02/05/18 10 07 Order Status: Completed Specimen: Urine from Urine, Clean Catch Updated: 02/05/18 101 9 COLOR UA LT YELLOW CLARITY CLEAR Specific [employer], UA <1.005 1.001 - 1.035 LEUKOCYTE ESTERASE NEGATIVE NEGATIVE NITRITE NEGATIVE NEGATIVE UROBILINOGEN 0.2 <1.1 mg/dL PROTEIN NEGATIVE NEGATIVE mg/dL PH,URINE 7.0 4.6 - 8.0 BLOOD NEGATIVE NEGATIVE KETONES NEGATIVE NEGATIVE mg/dL BILIRUBIN NEGATIVE NEGATIVE GLUCOSE NEGATIVE NEGATIVE mg/dL Radiology and EKG Evaluation Imaging Results US OB endovaginal (Final result) Result time 02/05/18 12:41:43 Final result by Hung Urias MD (02/05/18 12:41:43) Impression: 1. Single gestational sac, without embryo. This is either due to nonviability, or very ea rly , currently without intragestational embryo at this time. Additional note of cr escentic fluid collection about the gestational sac suggesting a subchorionic hemorrhage. Th is was discussed with the requesting up care provider. Consider follow-up pelvic ultrasound, as needed. 2. Normal sonographic appearance of the ovaries. Narrative: CRISPIN JOVANA US OB ENDOVAGINAL 02/05/2018 12:30 PM HISTORY: Left lower quadrant abdominal pain. History of ectopic . TECHNIQUE: Transvaginal pelvic sonography. COMPARISON: None. FINDINGS: The uterus measures 95 x 64 x 47 mm. A single apparent gestational sac is noted, 11.3 cm in size, which would correspond to a 7 week 0 day gestation. No pole is noted. A crescen tic anechoic region about the gestational sac suggesting a subchorionic hemorrhage. The right and left ovaries appear normal measuring 26 x 19 x 12 mm, and 30 x 38 x 23 mm, re spectively. Arterial and venous Doppler waveforms are seen in both ovaries. ED Diagnoses Final diagnoses Pelvic pain affecting in first trimester, antepartum Threatened in first trimester Disposition: ED Disposition ED Disposition Condition Comment Discharge Stable Follow-up Information Follow up With Specialties Details Why Contact Info Per Pt None OB of choice in 2-3 days, please call to move up appointment [facility] Emergency Department in [place] Emergency Medicine If symptoms worsen [address] [facility] [id number] [facility] Obstetrics and Gynecology In 3 days if unabl e to be seen by new OB [address], [address] [facility] [id number] Discharge Medications: Discharge Medication List as of 02/05/2018 1:10 PM ROSETTA Campos 02/06/18 0833 Torrey Mon MD 02/06/18 0901 documented in this encounter Plan of Treatment Not on filedocumented as of this encounter Procedures + +--------+ + + + | Procedure Name | Priori | Date/Time | Associated Diagnosis | Comments | | | ty | | | | + +--------+ + + + | US OB TRANSVAGINAL | Routin | 02/05/2018 | | Results for this | | | e | 12:30 PM | | procedure are in the | | | | PDT | | results section. | + +--------+ + + + | EXTERNAL LAB: CBC | Routin | 02/05/2018 | | Results for this | | | e | 10:16 AM | | procedure are in the | | | | PDT | | results section. | + +--------+ + + + | C-REACTIVE PROTEIN | Routin | 02/05/2018 | | Results for this | | | e | 10:16 AM | | procedure are in the | | | | PDT | | results section. | + +--------+ + + + | HCG, SERUM, QUANT | Routin | 02/05/2018 | | Results for this | | | e | 10:16 AM | | procedure are in the | | | | PDT | | results section. | + +--------+ + + + | COMPREHENSIVE | Routin | 02/05/2018 | | Results for this | | METABOLIC PANEL | e | 10:16 AM | | procedure are in the | | | | PDT | | results section. | + +--------+ + + + | URINALYSIS, REFLEX | Routin | 02/05/2018 | | Results for this | | MICROSCOPIC AND/OR | e | 10:07 AM | | procedure are in the | | CULTURE | | PDT | | results section. | + +--------+ + + + | C. TRACHOMATIS AND | Routin | 02/05/2018 | | Results for this | | N. GONORRHOEAE, NAAT | e | 10:07 AM | | procedure are in the | | (APTIMA) | | PDT | | results section. | + +--------+ + + + documented in this encounter Results US OB Transvaginal (02/05/2018 12:30 PM PDT) + + | Specimen | + + | | + + + + + | Impressions | Performed At | + + + | 1. Single gestational sac, without embryo. This is either due to | | | nonviability, or very early , currently without | | | intragestational embryo at this time. Additional note of crescentic | | | fluid collection about the gestational sac suggesting a subchorionic | | | hemorrhage. This was discussed with the requesting up care provider. | | | Consider follow-up pelvic ultrasound, as needed. 2. Normal | | | sonographic appearance of the ovaries. | | + + + + + + | Narrative | Performed At | + + + | CRISPIN HANSEN OB ENDOVAGINAL 02/05/2018 12:30 PM HISTORY: | | | Left lower quadrant abdominal pain. History of ectopic . | | | TECHNIQUE: Transvaginal pelvic sonography. COMPARISON: None. | | | FINDINGS: The uterus measures 95 x 64 x 47 mm. A single apparent | | | gestational sac is noted, 11.3 cm in size, which would correspond to a | | | 7 week 0 day gestation. No pole is noted. A crescentic anechoic | | | region about the gestational sac suggesting a subchorionic | | | hemorrhage. The right and left ovaries appear normal measuring 26 | | | x 19 x 12 mm, and 30 x 38 x 23 mm, respectively. Arterial and venous | | | Doppler waveforms are seen in both ovaries. | | + + + + + | Procedure Note | + + | [place], Rad Conversion - 06/05/2019 1:23 PM PDT CRISPIN EMERSON ENDOVAGINAL02/05/2018 | | 12:30 PM HISTORY:Left lower quadrant abdominal pain. History of ectopic . | | TECHNIQUE:Transvaginal pelvic sonography. COMPARISON:None. FINDINGS:The uterus measures | | 95 x 64 x 47 mm. A single apparent gestational sac is noted, 11.3 cm in size, which | | would correspond to a 7 week 0 day gestation. No pole is noted. A crescentic | | anechoic region about the gestational sac suggesting a subchorionic hemorrhage. The | | right and left ovaries appear normal measuring 26 x 19 x 12 mm, and 30 x 38 x 23 mm, | | respectively. Arterial and venous Doppler waveforms are seen in both ovaries. | | IMPRESSION: 1. Single gestational sac, without embryo. This is either due to | | nonviability, or very early , currently without intragestational embryo at this | | time. Additional note of crescentic fluid collection about the gestational sac | | suggesting a subchorionic hemorrhage. This was discussed with the requesting up care | | provider. Consider follow-up pelvic ultrasound, as needed. 2. Normal sonographic | | appearance of the ovaries. | | 12:41 PM | |gestational sac suggesting a subchorionic | | hemorrhage. | | | |The right and left ovaries appear normal measuring 26 x 19 x 12 mm, and 30 x 38 x 23 mm, re spectively. Arterial and venous Doppler waveforms are seen in both ovaries. | | | |IMPRESSION: | |1. Single gestational sac, without embryo. This is either due to nonviability, or very ear ly , currently without intragestational embryo at this time. Additional note of cre scentic fluid collection about the gestational sac suggesting a | |subchorionic hemorrhage. This was discussed with the requesting up care provider. Consider follow-up pelvic ultrasound, as needed. | | | |2. Normal sonographic appearance of the ovaries. | | | | | + + External Lab: DELISA (02/05/2018 10:16 AM PDT) + + + + + + | Component | Value | Ref Range | Performed | Pathologist | | | | | At | Signature | + + + + + + | WBC | 6.88 | 3.80 - 11.00 | EXTERNAL | | | | | K/uL | LAB | | + + + + + + | Non- | 4.87 | 3.70 - 5.10 | EXTERNAL | | | Red Blood | | M/uL | LAB | | | Cells | | | | | | Counted | | | | | + + + + + + | Hemoglobin | 13.8 | 11.3 - 15.5 | EXTERNAL | | | | | g/dL | LAB | | + + + + + + | Hematocrit, | 40.6 | 34.0 - 46.0 % | EXTERNAL | | | POC | | | LAB | | + + + + + + | MCV | 83.4 | 80.0 - 100.0 fl | EXTERNAL | | | | | | LAB | | + + + + + + | MCH | 28.4 | 27.0 - 34.0 pg | EXTERNAL | | | | | | LAB | | + + + + + + | MCHC | 34.0 | 32.0 - 35.5 | EXTERNAL | | | | | g/dL | LAB | | + + + + + + | RDW-CV | 37.6 | 37 - 53 fl | EXTERNAL | | | | | | LAB | | + + + + + + | Platelet | 177 | 150 - 400 K/uL | EXTERNAL | | | Count | | | LAB | | | Plasma | | | | | + + + + + + | MPV | 9.2 | fl | EXTERNAL | | | | | | LAB | | + + + + + + | Differentia | AUTOMATED | | EXTERNAL | | | l Type | | | LAB | | + + + + + + | % Segmented | 49.82 | % | EXTERNAL | | | | | | LAB | | | Neutrophils | | | | | + + + + + + | % | 41.15 | % | EXTERNAL | | | Lymphocytes | | | LAB | | + + + + + + | % Monocytes | 7.49 | % | EXTERNAL | | | | | | LAB | | + + + + + + | % | 0.90 | % | EXTERNAL | | | Eosinophils | | | LAB | | + + + + + + | % Basophils | 0.64 | % | EXTERNAL | | | | | | LAB | | + + + + + + | Absolute | 3.43 | 1.90 - 7.40 | EXTERNAL | | | Segmented | | K/uL | LAB | | | Neutrophils | | | | | + + + + + + | Absolute | 2.83 | 1.00 - 3.90 | EXTERNAL | | | Lymphocytes | | K/uL | LAB | | + + + + + + | Absolute | 0.52 | 0.00 - 0.80 | EXTERNAL | | | Monocytes | | K/uL | LAB | | + + + + + + | Absolute | 0.06 | 0.00 - 0.50 | EXTERNAL | | | Eosinophils | | K/uL | LAB | | + + + + + + | Absolute | 0.04Comment: Testing | 0.00 - 0.10 | EXTERNAL | | | Basophils | performed at [facility], [address] LAB | | | | [address], | | | | | | [place] [address] | | | | + + + + + + + + | Specimen | + + | Blood specimen | | (specimen) | + + + +---------+ + + | Performing | Address | City/State/Zipcode | Phone Number | | Organization | | | | + +---------+ + + | EXTERNAL LAB | | | | + +---------+ + + C-Reactive Protein (02/05/2018 10:16 AM PDT) + + + + + + | Component | Value | Ref Range | Performed | Pathologist | | | | | At | Signature | + + + + + + | CRP | <0.2Comment: Testing | mg/dL | EXTERNAL | | | | performed at [facility], [address] | | LAB | | | | [address], | | | | | | [place] [address] | | | | + + + + + + + + | Specimen | + + | Blood specimen | | (specimen) | + + + +---------+ + + | Performing | Address | City/State/Zipcode | Phone Number | | Organization | | | | + +---------+ + + | EXTERNAL LAB | | | | + +---------+ + + HCG, Serum, Quant (02/05/2018 10:16 AM PDT) + + + + + + | Component | Value | Ref Range | Performed | Pathologist | | | | | At | Signature | + + + + + + | hCG Quant, | 3,552 (H)Comment: | mIU/mL | EXTERNAL | | | Serum | APPROX GESTATIONAL | | LAB | | | | AGE..APPROX HCG RANGE | | | | | | 0.2 - 1 WEEK . . . . . 5 | | | | | | - 501 - 2 WEEKS . . . . | | | | | | . 50 - 5002 - 3 WEEKS . | | | | | | . . . 100 - 42692 - 4 | | | | | | WEEKS . . . . 500 - | | | | | | [id number] - 5 WEEKS . . . . | | | | | | 1000 - 555364 - 6 WEEKS | | | | | | . . . [address] - [id number] | | | | | | - 8 WEEKS . . . [address] | | | | | | - [id number] - 3 MONTHS . | | | | | | . . 43737 - 558242 | | | | | | Testing performed at | | | | | | [facility], [address], | | | | | | [place] [address] | | | | + + + + + + + + | Specimen | + + | Blood specimen | | (specimen) | + + + +---------+ + + | Performing | Address | City/State/Zipcode | Phone Number | | Organization | | | | + +---------+ + + | EXTERNAL LAB | | | | + +---------+ + + Comprehensive Metabolic Panel (02/05/2018 10:16 AM PDT) + + + + + + | Component | Value | Ref Range | Performed | Pathologist | | | | | At | Signature | + + + + + + | Na | 137 | 135 - 145 | EXTERNAL | | | | | mmol/L | LAB | | + + + + + + | K | 3.5 | 3.5 - 4.9 | EXTERNAL | | | | | mmol/L | LAB | | + + + + + + | Cl | 104 | 99 - 109 mmol/L | EXTERNAL | | | | | | LAB | | + + + + + + | CO2 | 26 | 23 - 32 mmol/L | EXTERNAL | | | | | | LAB | | + + + + + + | Anion Gap | 10 | 5 - 20 mmol/L | EXTERNAL | | | | | | LAB | | + + + + + + | Glucose, | 83 | 65 - 99 mg/dL | EXTERNAL | | | Fasting | | | LAB | | + + + + + + | BUN | 9 | 8 - 25 mg/dL | EXTERNAL | | | | | | LAB | | + + + + + + | Creatinine | 0.63 | 0.50 - 1.00 | EXTERNAL | | | | | mg/dL | LAB | | + + + + + + | BUN/Creatin | 14 | | EXTERNAL | | | ine Ratio | | | LAB | | + + + + + + | Calcium | 9.3 | 8.5 - 10.5 | EXTERNAL | | | | | mg/dL | LAB | | + + + + + + | Protein, | 7.5 | 6.3 - 8.2 g/dL | EXTERNAL | | | Total | | | LAB | | + + + + + + | Albumin | 3.8 | 3.6 - 5.0 g/dL | EXTERNAL | | | | | | LAB | | + + + + + + | Globulin | 3.7 | 1.3 - 4.9 g/dL | EXTERNAL | | | | | | LAB | | + + + + + + | A/G Ratio | 1.0 | 1.0 - 2.4 | EXTERNAL | | | | | | LAB | | + + + + + + | Bilirubin | 0.7 | 0.1 - 1.5 mg/dL | EXTERNAL | | | Total | | | LAB | | + + + + + + | ALP, | 35 | 35 - 115 U/L | EXTERNAL | | | External | | | LAB | | + + + + + + | AST | 49 (H) | 10 - 45 U/L | EXTERNAL | | | | | | LAB | | + + + + + + | ALT | 237 (H) | 10 - 65 U/L | EXTERNAL | | | | | | LAB | | + + + + + + | Estimated | >60Comment: GFR <60: | mL/min/1.73m2 | EXTERNAL | | | GFR | CHRONIC KIDNEY DISEASE, | | LAB | | | | IF FOUND OVER A 3 MONTH | | | | | | PERIOD.GFR <15: KIDNEY | | | | | | FAILURE.FOR | | | | | | AMERICANS, MULTIPLY THE | | | | | | CALCULATED GFR BY | | | | | | 1.210.Testing performed | | | | | | at [facility], [address] | | | | | | [place] | | | | | | [address] | | | | + + + + + + + + | Specimen | + + | Blood specimen | | (specimen) | + + + +---------+ + + | Performing | Address | City/State/Zipcode | Phone Number | | Organization | | | | + +---------+ + + | EXTERNAL LAB | | | | + +---------+ + + C. trachomatis and N. gonorrhoeae, NAAT (APTIMA) (02/05/2018 10:07 AM PDT) + + + + + + | Component | Value | Ref Range | Performed | Pathologist | | | | | At | Signature | + + + + + + | Source | URINE, COLLECTION NOT | | EXTERNAL | | | | GIVENComment: Testing | | LAB | | | | performed at [facility], [address] | | | | | | [place] [address], | | | | | | [place] [address] | | | | + + + + + + | Chlamydia | NegativeComment: | | EXTERNAL | | | Source | Reference range: | | LAB | | | | Negative | | | | + + + + + + | No Urine | NegativeComment: | | EXTERNAL | | | Aptima | Reference range: | | LAB | | | Received | Negative | | | | + + + + + + + + | Specimen | + + | | + + + +---------+ + + | Performing | Address | City/State/Zipcode | Phone Number | | Organization | | | | + +---------+ + + | EXTERNAL LAB | | | | + +---------+ + + Urinalysis, Reflex Microscopic and/or Culture (02/05/2018 10:07 AM PDT) + + + + + + | Component | Value | Ref Range | Performed | Pathologist | | | | | At | Signature | + + + + + + | Color | LT YELLOW | | EXTERNAL | | | | | | LAB | | + + + + + + | Clarity, | CLEAR | | EXTERNAL | | | Urine | | | LAB | | + + + + + + | Specific | <1.005 | 1.001 - 1.035 | EXTERNAL | | | [place], | | | LAB | | | Urine | | | | | + + + + + + | Leukocyte | NEGATIVE | | EXTERNAL | | | Esterase, | | | LAB | | | Urine | | | | | + + + + + + | Nitrite, | NEGATIVE | | EXTERNAL | | | Urine | | | LAB | | + + + + + + | Urobilinoge | 0.2 | mg/dL | EXTERNAL | | | n, Urine | | | LAB | | + + + + + + | Protein, | NEGATIVE | mg/dL | EXTERNAL | | | Urine | | | LAB | | + + + + + + | pH, Urine | 7.0 | 4.6 - 8.0 | EXTERNAL | | | | | | LAB | | + + + + + + | Blood, | NEGATIVE | | EXTERNAL | | | Urine | | | LAB | | + + + + + + | Ketones | NEGATIVE | mg/dL | EXTERNAL | | | | | | LAB | | + + + + + + | Bilirubin, | NEGATIVE | | EXTERNAL | | | Urine | | | LAB | | + + + + + + | Glucose, | NEGATIVEComment: Testing | mg/dL | EXTERNAL | | | Urine | performed at [facility], [address] | | LAB | | | | [address], | | | | | | [place] [address] | | | | + + + + + + + + | Specimen | + + | Urine specimen | | (specimen) | + + + +---------+ + + | Performing | Address | City/State/Zipcode | Phone Number | | Organization | | | | + +---------+ + + | EXTERNAL LAB | | | | + +---------+ + + documented in this encounter Visit Diagnoses + + | Diagnosis | + + | Pelvic pain affecting in first trimester, antepartum | + + | Threatened in first trimester Threatened , unspecified as to episode | | of care | + + documented in this encounter
--- OUTSIDE RECORDS SUMMARY | ~2020-07-16 | XMS | Encounter Summary ---
Demographics + + + | Address | [address] | | | [place] [address] | + + + | Home Phone | | + + + | Preferred Language | Unknown | + + + | Marital Status | Single | + + + | Confucianist Affiliation | Unknown | + + + [...] Team Providers + +------+ + | Care Ivf Embryologist Name | Role | Phone | + +------+ + | Elva Cruz MD | PCP | | + +------+ + Reason for Referral Evaluate & Treat (Routine) +--------+ + + + + + | Status | Reason | Specialty | Diagnoses / | Referred By | Referred To | | | | | Procedures | Contact | Contact | +--------+ + + + + + | Closed | Specialty | Gastroenterol | Diagnoses | | [address] ST | | | Services | ogy | Chronic | Morgan, | JONAH | | | Required | | hepatitis C | Tavia, | [facility] | | | | | without | STERILE PROCESSING TECH [address] | [address] | | | | | hepatic coma | [address] | [address] | | | | | (HCC) | [address] | [place], [place] | | | | | Procedures | [place], | [address] | | | | | [place], | [place] [address] | Phone: | | | | | ABDOM,B-SCAN | Phone: | [phone] | | | | | &/OR REAL | [phone] | Fax: | | | | | TIME,COMPLET | Fax: | [phone] | | | | | E | [phone] | | +--------+ + + + + + Reason for Visit +--------+ + | Reason | Comments | +--------+ + | Other | HCV | +--------+ + Evaluate & Treat (Routine) +--------+--------+ + + + + | Status | Reason | Specialty | Diagnoses / | Referred By | Referred To | | | | | Procedures | Contact | Contact | +--------+--------+ + + + + | Closed | | Gastroenterol | Diagnoses | Price, | Opal, | | | | melani | Change in | Art | MD Bubba | | | | | bowel habit | Christiano, | [address] | | | | | Procedures | [address] | [place], | | | | | OFFICE | [facility] | [place] [address] | | | | | VISIT | [place], [place] | Phone: | | | | | | [address] | [phone] | | | | | | Phone: | Fax: | | | | | | [phone] | [phone] | | | | | | Fax: | | | | | | | [phone] | | +--------+--------+ + + + + Encounter Details +--------+---------+ + + + | Date | Type | Department | Care Team | Description | +--------+---------+ + + + | 02/05/ | Office | [facility] | [facility], | Chronic hepatitis C | | 2019 | Visit | GASTROENTEROLOGY | [address] | without hepatic coma | | | | [address] [place] | [address] | (HCC) (Primary Dx) | | | | [address] [place], [place] | [place], [place] | | | | | [address] | [address] | | | | | [phone] | | | +--------+---------+ + + + Social History + + + +--------+ + | Tobacco Use | Types | Packs/Day | Years | Date | | | | | Used | | + + + +--------+ + | Former Smoker | Cigarettes | 0.25 | 6 | Quit: 2016 | + + + +--------+ + + [...] + + + | Blood Pressure | 122/86 | 02/05/2019 9:05 AM | | | | | PDT | | + + + + + | Pulse | 60 | 02/05/2019 8:59 AM | | | | | PDT | | + + + + + | Temperature | 36.7 C (98 F) | 02/05/2019 8:59 AM | | | | | PDT | | + + + + + | Respiratory Rate | 14 | 02/05/2019 8:59 AM | | | | | PDT | | + + + + + | Oxygen Saturation | 100% | 02/05/2019 8:59 AM | | | | | PDT | | + + + + + | Inhaled Oxygen | - | - | | | Concentration | | | | + + + + + | Weight | 78.3 kg (172 lb 9.9 | 02/05/2019 8:59 AM | | | | oz) | PDT | | + + + + + | Height | - | - | | + + + + + | Body Mass Index | 27.04 | 05/18/2018 4:01 PM | | | | | PDT | | + + + + + documented in this encounter Progress Notes Tavia Mora ARNP - 02/05/2019 9:00 AM PDTFormatting of this note might be differe nt from the original. PATIENT NAME: Chaparrita Jack : 1995: AGE: 23 y.o. REFERRED BY: Art Thrasher PRIMARY CARE: Elva Cruz MD CHIEF COMPLAINT: Chaparrita Jack is a 23 y.o. female referred by Art Thrasher for evaluation and treat ment of HCV. HISTORY OF PRESENT ILLNESS: She was initially diagnosed with HCV about 3 months ago. Likely cause of infection of HCV i s related to IV or intranasal drug use. Has never been treated for HCV in the past. Last drank alcohol: about 10/2017. Last smoked marijuana: about 3 years ago. Last used illegal drugs: 07/2017. There is no known risk factors for NAFLD. There is no known personal or family history of autoimmune diseases. Denies ascites, jaundice, hematemesis, peripheral edema, sleep changes, or confusion. Allergies Allergen Reactions Monistat [Miconazole Nitrate] Other (See Comments) BURNING AND ITCHING AT SITE Past Medical History: Diagnosis Date Abdominal pain Anxiety Back pain Ectopic recently @ 4 WEEK AGO; no surgery Elevated LFTs Hepatitis C HPV in female Smokes trying to quit Past Surgical History: Procedure Laterality Date DILATION AND CURETTAGE OF UTERUS 10/2018 LAPAROSCOPY 07/09/2014 DIAGNOSTIC LAPAROSCOPY, Rt Salphingectomy; Laterality: N/A; Surgeon: Tanika Thomas MD ; Location: [facility] MAIN OR TYMPANOSTOMY TUBE PLACEMENT 10/2018 Family History Problem Relation Age of Onset Cancer Mother Ovarian No known problems Sister No known problems Brother Other (see comment) Other Leukemia Social History Socioeconomic History Marital status: Single Spouse name: Not on file Number of children: Not on file Years of education: Not on file Highest education level: Not on file Social Needs Financial resource strain: Not on file Food insecurity - worry: Not on file Food insecurity - inability: Not on file Transportation needs - medical: Not on file Transportation needs - non-medical: Not on file Occupational History Not on file Tobacco Use Smoking status: Former Smoker Packs/day: 0.25 Years: 6.00 Pack years: 1.50 Types: Cigarettes Last attempt to quit: 2017 Years since quittin.2 Smokeless tobacco: Never Used Substance and Sexual Activity Alcohol use: No Drug use: No Sexual activity: Not on file Other Topics Concern Not on file Social History Narrative Not on file Review of Systems Constitutional: Negative for diaphoresis, fatigue, fever and unexpected weight change. HENT: Negative for congestion, hearing loss, mouth sores, rhinorrhea and trouble swallowing . Eyes: Negative for redness and visual disturbance. Respiratory: Negative for cough, choking, chest tightness, shortness of breath and wheezing . Cardiovascular: Negative for chest pain, palpitations and leg swelling. Gastrointestinal: Negative for abdominal distention, abdominal pain, anal bleeding, blood i n stool, constipation, diarrhea, nausea, rectal pain and vomiting. Endocrine: Denies enlarged thyroid Genitourinary: Negative for dysuria, flank pain and frequency. Musculoskeletal: Positive for arthralgias. Negative for back pain and joint swelling. Skin: Negative for color change and rash. Neurological: Negative for seizures, syncope, weakness, numbness and headaches. Hematological: Does not bruise/bleed easily. Complains of anemia. Denies enlarged lymph glands. Psychiatric/Behavioral: Positive for dysphoric mood. The patient is nervous/anxious. OBJECTIVE: PHYSICAL EXAM General: well developed, well nourished, in no acute distress, no muscle wasting noted Head: normocephalic and atraumatic Eyes: Sclera clear Mouth: MMM Lungs: Clear to auscultate bilaterally and throughout Heart: regular rate and rhythm Abdomen: Soft, non tender, non distended, bowel tones positive times 4 quadrants, negative Chiara y's sign, negative rebound tenderness, no guarding, no hepatosplenomegaly palpated. Msk: symmetrical with no deformity, with normal posture and gait, normal strength. Extremities: no clubbing, cyanosis, edema, or deformity noted Neurologic: no focal deficits, cranial nerves II-XII grossly intact, negative for asterixis Skin: intact without lesions or rashes. Negative for spider angioma Psych: alert and cooperative; normal mood and affect; normal attention span and concentration, Abstract on 01/17/2019 Component Date Value Ref Range Status Creatinine, External 12/04/2018 0.71 0.6 - 1.35 Final eGFR, External 12/04/2018 >60 60 - 99,999 Final WBC, External 12/04/2018 5.5 4.5 - 11 Final HGB, External 12/04/2018 10.3* 12 - 16 Final HCT, External 12/04/2018 32.2* 35 - 45 Final PLT, External 12/04/2018 214 140 - 440 Final Neutrophils %, External 12/04/2018 48.1* 140 - 440 Final Lymphocytes %, External 12/04/2018 41.1 24 - 44 Final Monocytes %, External 12/04/2018 9.2 0 - 12 Final Eosinophils %, External 12/04/2018 1 0 - 6 Final Neutrophils, Absolute, External 12/04/2018 2.65 2 - 6.9 Final Lymphocytes, Absolute, External 12/04/2018 2.26 0.6 - 3.4 Final Monocytes, Absolute, External 12/04/2018 0.51 0 - 1.1 Final Eosinophils, Absolute 12/04/2018 0.06 0 - 0.7 Final Basophils, Absolute 12/04/2018 0.03 0 - 0.2 Final RBC, External 12/04/2018 4.16 3.8 - 5.1 Final MCV, External 12/04/2018 78* 81 - 99 Final RDW, External 12/04/2018 13.7 10.5 - 15 Final Sodium, External 12/04/2018 138 132 - 143 Final Potassium, External 12/04/2018 3.7 3.6 - 5.1 Final Chloride, External 12/04/2018 105 95 - 112 Final Carbon Dioxide, External 12/04/2018 25 19 - 31 Final Calcium, External 12/04/2018 9 8.5 - 10.3 Final Protein, Total, External 12/04/2018 7 6 - 8.3 Final Albumin, External 12/04/2018 4.2 3.5 - 5 Final Bilirubin, Total, External 12/04/2018 0.4 0 - 1.2 Final ALP, External 12/04/2018 29* 31 - 130 Final AST, External 12/04/2018 66* 13 - 39 Final ALT, External 12/04/2018 137* 7 - 52 Final GGT, External 12/04/2018 20 5 - 60 Final Glucose, External 12/04/2018 89 70 - 100 Final BUN, External 12/04/2018 9 6 - 23 Final Anion Gap 12/04/2018 12 7 - 21 mmol/L Final BUN/Creatinine Ratio 12/04/2018 12.7 6 - 28.6 Final Globulin 12/04/2018 2.8 1.8 - 3.5 Final Albumin/Globulin Ratio 12/04/2018 1.5 1.1 - 2.4 Final MCH 12/04/2018 25.0* 26.0 - 33.0 pg Final MCHC 12/04/2018 32.0 30.0 - 36.0 g/dL Final Basophils % 12/04/2018 0.6 0 - 2 Final HCV Quantitative 11/21/2018 133,707 Final HCV Quantitative Log 11/21/2018 5.13 Final HCV Genotype 11/21/2018 1a Final GGT, External 11/21/2018 28 5 - 60 Final ED Titer 11/21/2018 <1:80 Final Nuclear Ab Pattern.Nucleolar 11/21/2018 N/A Final ED 11/21/2018 NO Final HIV 1/2 Ag/Ab 11/21/2018 Non Reactive Final Signal/Cutoff 11/21/2018 41.11 Final ASSESSMENT: 1. Chronic hepatitis C without hepatic coma (HCC) US Abdomen Limited Referral ABDOMINAL US Jonah's PLAN: Liver fibrosis: A liver biopsy has never been done. Will order laboratory test to determin e current fibrosis score. This in combination with APRI will help determine a fibrosis scor e to determine if patient would be an appropriate candidate for hepatitis C treatment. We will request records from laboratory tests done with care. Based on these labs , will order laboratory test to determine if additional liver pathology present. Laboratory test to be done 03/2019. Laboratory test needs to be done with a viral load 6 mo nths from initial viral load to ensure chronic hepatitis C infection. Ordered abdominal ultrasound for routine screening for HCC. APRI Lab Results Component Value Date PLT 177 07/09/2014 MELD No results found for: INR, BILITOT, CREA, NA Vaccination: If it has not been done, recommend patient is vaccinated for both Hepatitis A and Hepatitis B. Requesting these labs from care treatment. Transmission: Discussed following infection control guidelines. Inform tattoo parlors and [facility] providers of HCV infection. Avoid sharing personal items that might have blood on them, such as razors, toothbrushes, and nail clippers.Despite low risk of transmission throu gh routine sexual contact, recommend safe sex practices, especially if multiple sexual partn ers. Substance use/abuse: Patient was educated on the importance of avoiding all alcohol, illega l drugs, and marijuana. Contraindications to HCV treatment: Absolute contraindications to HCV treatment include: 1. Short life expectancy.severe co morbidities (less than 10 years). 2. Known advanced cirrhosis with clinical decompensation (e.g. Ascites, encephalopathy, va riceal bleeding or SBP) 3. or inability to reliably use control. 4. Severe cardiac disease. Will follow up with results. Patient is to call with any question or concerns. Any fevers, chills, chest pain, SOB or other serious symptoms patient is to call the office or go to ER . Cc: Elva Cruz MD This note was dictated using voice recognition software. Please contact me if there are an y questions regarding its content. Electronically signed by ROSETTA Rojas at 01/21 2:00 PM PDTdocumented in this encounter Plan of Treatment + +---------+--------+ + + | Name | Type | Priori | Associated Diagnoses | Order Schedule | | | | ty | | | + +---------+--------+ + + | US Abdomen Limited | Imaging | Routin | Chronic hepatitis | Expected: | | | | e | C without hepatic | 02/05/2019, Expires: | | | | | coma (HCC) | 06/05/2019 | + +---------+--------+ + + + + +--------+ + + | Name | Type | Priori | Associated Diagnoses | Order Schedule | | | | ty | | | + + +--------+ + + | Referral ABDOMINAL | Outpatient | Routin | Chronic hepatitis | Ordered: 02/05/2019 | | [facility] | Referral | e | C without hepatic | | | | | | coma (HCC) | | + + +--------+ + + documented as of this encounter Procedures + +--------+ + + + | Procedure Name | Priori | Date/Time | Associated Diagnosis | Comments | | | ty | | | | + +--------+ + + + | IMAGING REPORT - | | 04/23/2019 | | Results for this | | EXTERNAL SCAN | | 12:00 AM | | procedure are in the | | | | PDT | | results section. | + +--------+ + + + | LABS - EXTERNAL SCAN | | 07/24/2018 | | Results for this | | | | 12:00 AM | | procedure are in the | | | | PDT | | results section. | + +--------+ + + + | PATHOLOGY - EXTERNAL | | 03/16/2018 | | Results for this | | SCAN | | 12:00 AM | | procedure are in the | | | | PDT | | results section. | + +--------+ + + + documented in this encounter Results IMAGING REPORT - EXTERNAL SCAN (04/23/2019 12:00 AM PDT) + + + | Narrative | Performed At | + + + | Ordered by an | | | unspecified provider. | | + + + LABS - EXTERNAL SCAN (07/24/2018 12:00 AM PDT) + + + | Narrative | Performed At | + + + | Ordered by an | | | unspecified provider. | | + + + PATHOLOGY - EXTERNAL SCAN (03/16/2018 12:00 AM PDT) + + + | Narrative | Performed At | + + + | Ordered by an | | | unspecified provider. | | + + + documented in this encounter Visit Diagnoses + + | Diagnosis | + + | Chronic hepatitis C without hepatic coma (HCC) - Primary | + + documented in this encounter"
--- OUTSIDE RECORDS SUMMARY | ~2020-07-16 | XMS | Encounter Summary ---
Demographics + + + | Address | [address] | | | [place] [address] | + + + | Home Phone | | + + + | Preferred Language | Unknown | + + + | Marital Status | Single | + + + | Episcopalian Affiliation | Unknown | + + + | Race | White | + + + | Ethnic Group | Not or | + + + Author + + + | Author | [facility] | | | and [place] | + + + | Organization | [facility] | | | [...] Team Providers + +------+ + | Care Webmethods Architect Name | Role | Phone | + +------+ + PCP | Unavailable | + +------+ + Encounter Details +--------+ + + + + | Date | Type | Department | Care Team | Description | +--------+ + + + + | 06/13/ | Hospital | [facility] | Abel Cedillo MD | | | 1996 | Encounter | [facility] | | | | | | GENERIC CONV DEPT | | | | | | [address] | | | | | | [place] | | | | | | [address] | | | | | | [phone] | | | +--------+ + + + + Social History + +-------+ +--------+------+ | Tobacco Use | Types | Packs/Day | Years | Date | | | | | Used | | + +-------+ +--------+------+ | Never Assessed | | | | | + +-------+ +--------+------+ + + + | Sex Assigned at | Date Recorded | | | | + + + | Not on file | | + + + documented as of this encounter Plan of Treatment Not on filedocumented as of this encounter Visit Diagnoses Not on filedocumented in this encounter"
--- OUTSIDE RECORDS SUMMARY | ~2020-07-16 | XMS | Encounter Summary ---
Demographics + + + | Address | [address] | | | [place] [address] | + + + | Home Phone | | + + + | Preferred Language | Unknown | + + + | Marital Status | Single | + + + | Amish Affiliation | Unknown | + + + | Race | White | + + + | Ethnic Group | Not or | + + + Author + + + | Author | [facility] | | | and [place] | + + + | Organization | [facility] | | | and [...] Team Providers + +------+ + | Care Collarette Separator Name | Role | Phone | + +------+ + | Elva Cruz MD | PCP | | + +------+ + Encounter Details +--------+ + + + + | Date | Type | Department | Care Team | Description | +--------+ + + + + | 05/08/ | Orders Only | [facility] | Scott Reyna W, | Chronic hepatitis C | | 2019 | | MED CTR | PharmD [address] | without hepatic coma | | | | PHARMACOTHERAPY | [place], [place] | (HCC) (Primary Dx) | | | | CLINIC [address] | [address] | | | | | [place], [place] | | | | | | [address] | | | | | | [phone] | | | +--------+ + + + [...]
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
--- OUTSIDE RECORDS SUMMARY | ~2020-07-16 | XMS | Encounter Summary ---
Demographics + + + | Address | [address] | | | [place] [address] | + + + | Home Phone | | + + + | Preferred Language | Unknown | + + + | Marital Status | Single | + + + | Orthodox Affiliation | Unknown | + + + [...] Team Providers + +------+ + | Care Honey Liquefier Name | Role | Phone | + +------+ + | Elva Cruz MD | PCP | | + +------+ + Encounter Details +--------+ + + + + | Date | Type | Department | Care Team | Description | +--------+ + + + + | 07/05/ | Orders Only | [facility] | Scott Reyna W, | Chronic hepatitis C | | 2019 | | MED CTR | PharmD [address] | without hepatic coma | | | | PHARMACOTHERAPY | [place], [place] | (HCC) (Primary Dx) | | | | CLINIC [address] | [address] | | | | | [place], [place] | | | | | | [address] | | | | | | [phone] | | | +--------+ + + + [...]
--- OUTSIDE RECORDS SUMMARY | ~2020-07-16 | XMS | Encounter Summary ---
Demographics + + + | Address | [address] | | | [place] [address] | + + + | Home Phone | | + + + | Preferred Language | Unknown | + + + | Marital Status | Single | + + + | Mormonism Affiliation | Unknown | + + + | Race | White | + + + | Ethnic Group | Not or | + + + Author + + + | Author | [facility] | | | and Ob[place] | + + + | Organization | [facility] | | | [...] Team Providers + +------+ + | Care Blanking Press Operator Name | Role | Phone | + +------+ + | Ita Lopes | PCP | | + +------+ + Encounter Details +--------+ + + + + | Date | Type | Department | Care Team | Description | +--------+ + + + + | 08/02/ | Emergency | [facility] | Tripp Guzman | Acute pain of left | | 2016 | | [facility] | MD [address] | shoulder; Atypical | | | | [facility] [place] | [address] [place], [place] | chest pain; Severe | | | | [address] | [address] | anxiety | | | | [facility], [place] | [phone] | | | | | [address] | | | | | | [phone] | | | +--------+ + + + [...] + + documented as of this encounter Medications at Time of Discharge [...] ED Notes Conversion Transaction, Provider Unknown - 08/02/2016 4:49 AM PDTFormatting of this note m ight be different from the original. ED Notes by Leann Gaston RN at 08/02/16448 Author: Leann Gaston RN Service: (none) Author Type: Registered Nurse Filed: 08/02/16448 Date of Service: 08/02/16448 Status: Signed Hog Man: Leann Gaston RN (Registered Nurse) Pt is calmer now and reporting a reduction in her pain to a 5/10. Leann Gaston RN 08/02/16448 ocaas , Tripp Arvizu MD - 08/02/2016 4:24 AM PDTFormatting of this note might be different from th e original. ED Provider Notes by Tripp Guzman MD at 08/02/16423 Author: Tripp Guzman MD Service: -Emergency Author Type: Physician Filed: 08/02/16 0506 Date of Service: 08/02/16423 Status: Signed Hog Man: Tripp Guzman MD (Physician) Procedures Additional Documentation Procedures [facility] Department of Emergency Medicine No flowsheet data found. History of Present Illness Patient Identification Crispin Jack is a 21 y.o. female. Patient information was obtained from patient. History/Exam limitations: none. Patient presented to the Emergency Department by: Car Chief Complaint Chief Complaint Patient presents with Chest Pain woke patient from sleep. Started behind the left shoulder and is now substernal. Cold sym ptoms for the last 3 days. No fever. The patient complains of chest pain. 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 The discomfort is described as "sharp sharp sharp", pain started in th e left shoulder but now located in the epigastrum with no reported radiation. The onset of symptoms occured while the patient was sleeping just DIRECTOR OF CLINICAL SERVICES. The patient also complains of th e following symptoms: pain worse with deep breathing. Pt denies: leg pain, leg swelling, tr ouble breathing, fever. Pain level currently: severe. At worst: severe. Care prior to arrival: nothing, with no spontaneous relief. Patient's cardiac risk factors: None Prior stress testing or other cardiac functional testing: none PCP: PER PT NONE History reviewed. No pertinent past medical history. Past Surgical History Procedure Laterality Date Abdominal surgery Removed right fallopian tube Prior to Admission medications Not on File No Known Allergies Social History Social History Marital Status: Single Spouse Name: N/A Number of Children: N/A Years of Education: N/A Occupational History Not on file. Social History Main Topics Smoking status: Current Every Day Smoker -- 0.25 packs/day Smokeless tobacco: Not on file Alcohol Use: Yes Comment: rarely Drug Use: No Sexual Activity: Not on file Other Topics Concern Not on file Social History Narrative History reviewed. No pertinent family history. Review of Systems Constitutional: Negative for: fever, chills Eyes: Negative for: vision changes Throat: Negative for: mouth sores Cardiovascular/Respiratory: As above, else negative for: cough Gastrointestinal: Negative for: abdominal pain, vomiting, diarrhea, black or bloody stools Genitourinary: Negative for: dysuria, hematuria, urinary problems Musculoskeletal: Negative for: extremity swelling Skin: Negative for: rash Neuro and psych: Negative for: fainting Endocrine/Heme/Lymph: Negative for: swollen lymph nodes All other review of systems negative except as mentioned. Physical Exam BP 148/81 mmHg | Pulse 127 | Temp(Src) 98.2 F (36.8 C) (Oral) | Resp 22 | Ht 1.702 m (5 ' 7") | Wt 88.905 kg (196 lb) | BMI 30.69 kg/m2 | SpO2 98% | LMP 07/03/2016 Pulse Oximetry interpretation: Normal VS: Tachycardia noted, else normal. Afebrile. General: Alert, extremely anxious and emotionally labile but in no evident physical distres s. Eyes: Normal inspection, pupils equal and round, non-icteric ENT: Ears normal Nose normal Neck: Normal inspection Supple No lymphadenopathy No meningismus Cardiovascular: Normal rhythm, tachycardic rate. No murmur. No tenderness. Respiratory: Normal lung sounds. No rales, rhonchi, or wheezing. Good air movement. No s plinting. Abdomen: Soft, tender to palpation of the epigastrum, non-distended No guarding or rebound Back: Normal inspection. No CVA tenderness. Extremities: No edema or tenderness. Shoulder exam benign. Skin: Color normal Warm and dry No rash Neuro: No motor deficit No sensory deficit Medical Decision Making and Emergency Department Course Well's Criteria Points no: Clinically suspect DVT 3 no: Most likely due to PE 3 yes: Heart rate >= 100 1.5 no: Immobilization or surgery in last 4 weeks 1.5 no: Prior DVT or PE 1.5 no: Hemoptysis 1 no: Cancer treatment in the last 6 months 1 Results: Score 0-2, low pre-test probability, may be excluded by a normal d-dimer ED Department Course Pt with sharp and pleuritic "chest" pain but points to the epigastrum. No reproducible yasmin n with palpation. The patient is extremely and disproportionately anxious - she is literall y shaking. She is crying and repeating, "I think I'm having a heart attack!" When reassure d that she does not appear to be having a heart attack and that her ECG is normal, she cries louder and exclaims, "What if it's worse than a heart attack?!" Will screen and give GI co cktail. Some relief with GI cocktail - pain down to 5/10. D-dimer and TnI normal. HCG negative. CXR normal. Much better with Ativan. Will discharge. BP 136/81 mmHg | Pulse 100 | Temp(Src) 98.2 F (36.8 C) (Oral) | Resp 20 | Ht 1.702 m (5 ' 7") | Wt 88.905 kg (196 lb) | BMI 30.69 kg/m2 | SpO2 96% | LMP 07/03/2016 Workup negative for or not consistent with acute myocardial infarction, pulmonary embolus, aortic dissection, unstable angina or other emergent causes of chest pain. Records Reviewed Old medical records. Single prior ED visit for unrelated issue. Laboratory Evaluation TROPONIN I D-DIMER, QUANTITATIVE HCG, SERUM, QUALITATIVE 12-lead ECG: Time of exam 0417. Interpreted independently by me. Rate: 115. Rhythm: sin us tachycardia. Ectopy: none. [place]: nml. Intervals: nml. Infarct/Ischemia: none. Tech nique: Good. Interpretation: Normal ECG Prior ECG for comparison: None. Radiology and EKG Evaluation Imaging Results XR Chest PA and Lateral (Preliminary result) Result time: 08/02/16 04:53:35 ED Interpretation Documented by Tripp Guzman MD (08/02/16 04:53:35, [facility] in [place], Emergency Medicine) PA/lat view(s) of the chest. Heart nml. No focal infiltrate noted. No pneumothorax. No acute bony abnormalities. Other significant findings: None. Prior studies: None. ED Diagnoses Final diagnoses Acute pain of left shoulder Atypical chest pain Severe anxiety Disposition: ED Disposition Discharge Condition at discharge: Improving condition Follow-up Information Follow up With Details Comments Contact [facility] MD [place] Schedule an appointment as soon as possible for a visit for recheck and to establish primary care [address] [facility] [address] [facility] [address] Discharge Medications: New Prescriptions FAMOTIDINE (PEPCID) 20 MG TABLET Take 1 tablet by mouth 2 (two) times daily. NAPROXEN (NAPROSYN) 500 MG TABLET Take 1 tablet by mouth every 12 (twelve) hours. For 5 days Tripp Guzman MD 08/02/166 onversion Transa ction, Provider Unknown - 08/02/2016 4:17 AM PDT ED Notes by Leann Gaston RN at 08/02/16416 Author: Leann Gaston RN Service: (none) Author Type: Registered Nurse Filed: 08/02/16439 Date of Service: 08/02/16416 Status: Signed Hog Man: Leann Gaston RN (Registered Nurse) Pt arrived crying and reporting sharp, stabbing chest pain and she is certain, " I am havin g a heart attack. Where is the doctor?" Pt difficult to console. Leann Gaston RN 08/02/16439 docume nted in this encounter Plan of Treatment Not on filedocumented as of this encounter Procedures + +--------+ + + + | Procedure Name | Priori | Date/Time | Associated Diagnosis | Comments | | | ty | | | | + +--------+ + + + | XR CHEST 2 VIEWS | Routin | 08/02/2016 | | Results for this | | | e | 4:45 AM | | procedure are in the | | | | PDT | | results section. | + +--------+ + + + | TROPONIN I | Routin | 08/02/2016 | | Results for this | | | e | 4:20 AM | | procedure are in the | | | | PDT | | results section. | + +--------+ + + + | D-DIMER | Routin | 08/02/2016 | | Results for this | | | e | 4:20 AM | | procedure are in the | | | | PDT | | results section. | + +--------+ + + + | , SERUM, | Routin | 08/02/2016 | | Results for this | | QUAL | e | 4:20 AM | | procedure are in the | | | | PDT | | results section. | + +--------+ + + + | ECG 12 LEAD | Routin | 08/02/2016 | | Results for this | | | e | 4:17 AM | | procedure are in the | | | | PDT | | results section. | + +--------+ + + + documented in this encounter Results XR Chest 2 Vws (08/02/2016 4:45 AM PDT) + + | Specimen | + + | | + + + + + | Impressions | Performed At | + + + | 1. Normal chest. | | + + + + + + | Narrative | Performed At | + + + | [facility] CHEST 2 VIEW FRONTAL AND LATERAL 08/02/2016 4:45 | | | AM History: 21 years. Female. Acute chest pain, presenting | | | to the emergency room. Technique: PA and lateral views of the | | | chest. Comparison: No prior chest radiography at this facility.. | | | Findings: The lungs and pleural spaces are clear. The | | | bronchovascular markings are normal. The cardiac silhouette and | | | pulmonary vasculature are normal. Osseous structures are | | | unremarkable. The mediastinal contours and pulmonary adrian are | | | normal. The thoracic aorta is normal. | | + + + + + | Procedure Note | + + | [place], Rad Conversion - 06/06/2019 7:13 PM PDT [facility] CHEST 2 VIEW FRONTAL AND | | [id number]/02/2016 4:45 AM History: 21 years. Female. Acute chest pain, presenting to | | the emergency room. Technique: PA and lateral views of the chest.Comparison: No prior | | chest radiography at this facility.. Findings: The lungs and pleural spaces are clear. | | The bronchovascular markings are normal. The cardiac silhouette and pulmonary | | vasculature are normal. Osseous structures are unremarkable. The mediastinal contours | | and pulmonary adrian are normal. The thoracic aorta is normal. IMPRESSION: 1. Normal | | chest. | | | |Findings: The lungs and pleural spaces are clear. The bronchovascular markings are normal . The cardiac silhouette and pulmonary vasculature are normal. Osseous structures are unrem arkable. The mediastinal contours | |and pulmonary adrian are normal. The | |thoracic aorta is normal. | | | |IMPRESSION: | |1. Normal chest. | | | | | + + Troponin I (08/02/2016 4:20 AM PDT) + + + + + + | Component | Value | Ref Range | Performed | Pathologist | | | | | At | Signature | + + + + + + | Troponin I, | <0.04Comment: 0.00 to | 0.00 - 0.10 | EXTERNAL | | | Qual | 0.10 CONSISTENT WITH | ng/mL | LAB | | | | NORMAL POPULATION0.11 to | | | | | | 0.60 CONSISTENT WITH | | | | | | INCREASED RISK FOR | | | | | | ADVERSE OUTCOMES> 0.60 | | | | | | CONSISTENT | | | | | | WITH WHO CRITERIA FOR | | | | | | ACUTE MA Testing | | | | | | performed at [facility], [address], | | | | | | [place] [address] | | | | + + + + + + + + | Specimen | + + | Blood specimen | | (specimen) | + + + +---------+ + + | Performing | Address | City/State/Zipcode | Phone Number | | Organization | | | | + +---------+ + + | EXTERNAL LAB | | | | + +---------+ + + D-Dimer (08/02/2016 4:20 AM PDT) + + + + + + | Component | Value | Ref Range | Performed | Pathologist | | | | | At | Signature | + + + + + + | D-DIMER, | 0.22Comment: D Dimer | 0.19 - 0.50 | EXTERNAL | | | MANUAL | results less than 0.50 | mg/L FEU | LAB | | | | mg/L FEU may rule out | | | | | | DVT and PE. However, | | | | | | all laboratory results | | | | | | should be interpreted in | | | | | | the context of all | | | | | | available clinical, | | | | | | radiologic and | | | | | | laboratory | | | | | | information.Testing | | | | | | performed at [facility], [address], | | | | | | [place] [address] | | | | + + + + + + + + | Specimen | + + | Blood specimen | | (specimen) | + + + +---------+ + + | Performing | Address | City/State/Zipcode | Phone Number | | Organization | | | | + +---------+ + + | EXTERNAL LAB | | | | + +---------+ + + , Serum, Qual (08/02/2016 4:20 AM PDT) + + + + + + | Component | Value | Ref Range | Performed | Pathologist | | | | | At | Signature | + + + + + + | HCG | NEGATIVEComment: Testing | | EXTERNAL | | | QUALITATIVE | performed at [facility], [address] | LAB | | | | [address], | | | | | | [place] [address] | | | | + + + + + + + + | Specimen | + + | Blood specimen | | (specimen) | + + + +---------+ + + | Performing | Address | City/State/Zipcode | Phone Number | | Organization | | | | + +---------+ + + | EXTERNAL LAB | | | | + +---------+ + + ECG 12 lead (08/02/2016 4:17 AM PDT) + + + + + + | Component | Value | Ref Range | Performed | Pathologist | | | | | At | Signature | + + + + + + | DIAGNOSIS: | Sinus | | EXTERNAL | | | | tachycardiaPossible Left | | LAB | | | | atrial | | | | | | enlargementBorderline | | | | | | ECGNo previous ECGs | | | | | | availableThis ECG | | | | | | contains Unconfirmed | | | | | | Interpretation | | | | | | Statements. See ED | | | | | | Record for Physician | | | | | | Interpretation. | | | | | | Confirmed by MUSE READ | | | | | | ONLY, -COMPUTER ([id number]), | | | | | | purchasing expeditor MICHAEL HUERTA ([id number]) | | | | | | on 08/02/2016 8:43:53 | | | | | | AM | | | | + + + + + + + + | Specimen | + + | | + + + + + | Narrative | Performed At | + + + | Historically converted procedure from [facility] | EXTERNAL LAB | + + + + +---------+ + + | Performing | Address | City/State/Zipcode | Phone Number | | Organization | | | | + +---------+ + + | EXTERNAL LAB | | | | + +---------+ + + documented in this encounter Visit Diagnoses + + | Diagnosis | + + | Acute pain of left shoulder | + + | Atypical chest pain Other chest pain | + + | Severe anxiety | + + documented in this encounter
--- OUTSIDE RECORDS SUMMARY | ~2020-07-16 | XMS | Encounter Summary ---
Demographics + + + | Address | [address] | | | [place] [address] | + + + | Home Phone | | + + + | Preferred Language | Unknown | + + + | Marital Status | Single | + + + | Buddhist Affiliation | Unknown | + + + | Race | White | + + + | Ethnic Group | Not or | + + + Author + + + | Author | [facility] | | | and Obie[place] | + + + | Organization | [facility] | | | [...] Team Providers + +------+ + | Care Certified Surgical Technologist Name | Role | Phone | + +------+ + | Ita Lopes | PCP | | + +------+ + Encounter Details +--------+ + + + + | Date | Type | Department | Care Team | Description | +--------+ + + + + | 01/17/ | Emergency | [facility] | Florencio Soares, | Vomiting and | | 2018 | | MEDICAL CENTER | MD [address] | diarrhea | | | | EMERGENCY [place] | [place] [address] | | | | | [address] | [phone] | | | | | [place], [place] | | | | | | [address] | | | | | | [phone] | | | +--------+ + + + [...] + + + | Blood Pressure | 102/64 | 01/17/2018 10:14 PM | | | | | PDT | | + + + + + | Pulse | 66 | 01/17/2018 10:14 PM | | | | | PDT | | + + + + + | Temperature | 36.7 C (98.1 F) | 01/17/2018 10:14 PM | | | | | PDT | | + + + + + | Respiratory Rate | 18 | 01/17/2018 10:14 PM | | | | | PDT | | + + + + + | Oxygen Saturation | - | - | | + + + + + | Inhaled Oxygen | - | - | | | Concentration | | | | + + + + + | Weight | 78.4 kg (172 lb 13.4 | 01/17/2018 10:14 PM | | | | oz) | PDT | | + + + + + | Height | 170.2 cm (5' 7") | 01/17/2018 10:14 PM | | | | | PDT | | + + + + + | Body Mass Index | 27.07 | 01/17/2018 10:14 PM | | | | | PDT [...] documented as of this encounter ED Notes Florencio Soares MD - 01/17/2018 10:42 PM PDTFormatting of this note might be different fr om the original. ED Provider Notes by Florencio Soares MD at 01/17/182241 Author: Florencio Soares MD Service: Emergency Department Author Type: Physician Filed: 01/18/18 0043 Date of Service: 01/17/182241 Status: Signed Office Rental Clerk: Florencio Soares MD (Physician) [facility] Department of Emergency Medicine 10:45 PM History of Present Illness Patient Identification Chaparrita Jack is a 22 y.o. female. Patient information was obtained from patient. History/Exam limitations: none. Patient presented to the Emergency Department by: Car Chief Complaint Chief Complaint Patient presents with Emesis onset 4 days ago. Pt states possibility of Diarrhea onset today Chief complaint: Emesis Location: GI Quality: 4 episodes of emesis today Severity: Moderate Onset: 4 days ago Timing: Constant Modifying factors: None reported Care prior to arrival: None reported Associated symptoms: Chills (intermittent), nausea, diarrhea (onset today), abdominal pain (periumbilical) Denies: Fever, dysuria, sore throat, coughing, chest pain, SOB, rash, blood in stool, or an y other Sx at this time Context: Pt presents with emesis, onset 4 days ago. She states that she had 4 episodes of e mesis today. Pt reportedly took a test 4 days ago, which was negative. The first d ay of her LMP was the 25th of the last month. Pt states that her menstruation periods normal ly occur every 5 weeks (so she is not late on her period). Pt also complains of chills, naus ea, mid abd cramping, and states that she started having diarrhea today. No recent antibioti c use. No recent camping or travel. No known bad food exposure. Reports h/o tubal . Daughter has reportedly been sick and has had diarrhea for the past 3 days. PCP: Pt was just assigned to a provider in [facility]. She has the contact info rmation at home. Review of Systems Constitutional: Positive for chills (intermittent) Negative for known fever Nose: Negative for congestion Throat: Negative for sore throat CV: Negative for chest pain Resp: Negative for ugmqpgiev-lw-xqnpuf or cough GI: Positive for abdominal cramping (periumbilical), nausea, vomiting (onset 4 days ago, 4 episodes today) Positive for diarrhea (onset today) Negative for melena, hematochezia, or hemoptysis : Negative for urinary problems, dysuria, frequency or hematuria LNMP: 12/17/2017 Musculoskeletal: Negative for back pain Skin: Negative for rash Neuro/Psych: Negative for headache All other systems reviewed and negative except as noted. Past Medical History Diagnosis Date Ectopic Past [...] file History reviewed. No pertinent family history. Physical Exam BP 102/64 (BP Location: Left upper arm) | Pulse 66 | Temp 98.1 F (36.7 C) (Oral) | R forrest 18 | Ht 1.702 m (5' 7") | Wt 78.4 kg (172 lb 13.5 oz) | LMP 12/17/2017 (Exact Date) | SpO2 96% | BMI 27.07 kg/m Vital signs interpretation: Normal Pulse Oximetry interpretation: Normal General: Alert, in no apparent distress Appears well hydrated and nontoxic Eyes: Normal inspection, non-icteric, non-injected ENT: Nose normal Pharynx normal Moist mucous membranes Neck: Normal inspection Back: Normal inspection CV: Rate and rhythm normal No murmurs Respiratory: Bilaterally clear to auscultation No rales, wheezing or rhonchi Abdomen: Soft, non-distended, non-tender No masses, rebound or guarding Normal active bowel sounds Extremities: Non tender, painless ROM Skin: Color normal Warm and dry No rash Neuro: Alert, no AMS No gross motor/sensory deficits Medical Decision Making and Emergency Department Course ED Department Course Patient presents to ED with complaints of emesis, chills, and recent vomiting and diarrhea. Her exam, including her abdomen, is benign. No evidence of acute abdomen such as appendicit is. My DDx includes, but is not limited to: gastroenteritis, food borne, viral etiology, met abolic etiology, , vs other. Will order urine test and give Zofran. I do not feel any imaging or other diagnostic studies are necessary at this time. 11:15 PM Urine test is negative. 11:23 PM. Patient reevaluation. Patient is stable and feeling better at this time. I disc ussed all ED results and my clinical impression with the patient. I advised patient to christi w up with her PCP. We discussed the emergent signs and symptoms that would necessitate a re turn to ED. All questions and concerns addressed. Patient is ready for discharge. Will dis charge home with Rx for ondansetron. Vitals: 01/17/18 2210 BP: 102/64 BP Location: Left upper arm Pulse: 66 Resp: 18 Temp: 98.1 F (36.7 C) TempSrc: Oral SpO2: 96% Weight: 78.4 kg (172 lb 13.5 oz) Height: 1.702 m (5' 7") Records Reviewed Old medical records. Nursing notes. SANTANA Alert: The patient has been seen 12 times in a [place] ED within the past 12 months . Laboratory Evaluation Results Procedure Component Value Ref Range Date/Time Urine Test (LAB) [[id number]] Collected: 01/17/18 2724 Order Status: Completed Specimen: Urine from Urine, Clean Catch Updated: 01/17/18 230 9 Preg Test, Ur NEGATIVE NEGATIVE I personally reviewed the lab results and they have been posted to the chart. Pertinent po sitive and negative findings have been addressed appropriately. ED Diagnosis Final diagnosis Vomiting and diarrhea Disposition: ED Disposition ED Disposition Condition Comment Discharge Stable Follow-up Information Follow up With Specialties Details Why Contact Info [facility] Schedule an appointment as soon as possible for a vis it If symptoms worsen [address] [facility] [phone] [facility] Emergency Department in [place] Emergency Medicine [address] [facility] [address] Discharge Medications: Discharge Medication List as of 01/17/2018 11:30 PM START taking these medications Details ondansetron (ZOFRAN-ODT) 8 MG disintegrating tablet Take 1 tablet by mouth every 8 (eight) hours as needed for Nausea (or vomiting) for up to 7 days., Starting Mon01/17/2018, Until We 01/24/2018, Print Florencio Soares MD Procedures Additional Documentation Procedures Attending Provider Note: Florencio Jean MD personally performed the services described in this documentation, as scribed by Lobo Randle in my presence, and it is both accurate a nd complete. Chart Reviewed and Completed: 01/18/2018 12:43 AM Scribe: Sarah Lovett, scribing for and in the presence of Florencio Soares MD. Signed by: Sarah Mccarty 01/17/2018 11:27 PM Florencio Soares MD 01/18/18 0043 documented in this encounter Plan of Treatment Not on filedocumented as of this encounter Procedures + +--------+ + + + | Procedure Name | Priori | Date/Time | Associated Diagnosis | Comments | | | ty | | | | + +--------+ + + + | HCG, URINE, QUAL | Routin | 01/17/2018 | | Results for this | | | e | 10:54 PM | | procedure are in the | | | | PDT | | results section. | + +--------+ + + + documented in this encounter Results , Urine, Qual (01/17/2018 10:54 PM PDT) + + + + + + | Component | Value | Ref Range | Performed | Pathologist | | | | | At | Signature | + + + + + + | Preg Test, | NEGATIVEComment: Testing | | EXTERNAL | | | Ur | performed at [facility], [address] | [address] | | | [address], | | | | | | [place] [address] | | | | + + + [...] + | Diagnosis | + + | Vomiting and diarrhea Vomiting alone | + + documented in this encounter
--- OUTSIDE RECORDS SUMMARY | ~2020-07-16 | XMS | Encounter Summary ---
Demographics + + + | Address | [address] | | | [place] [address] | + + + | Home Phone | | + + + | Preferred Language | Unknown | + + + | Marital Status | Single | + + + | Jainism Affiliation | Unknown | + + + [...] Team Providers + +------+ + | Care Clerical Office Worker Name | Role | Phone | + +------+ + | Elva Cruz MD | PCP | | + +------+ + Reason for Visit + +--------+ + | Reason | Onset | Comments | | | Date | | + +--------+ + | Lab Order | 05/30/ | | | | 2018 | | + +--------+ + Encounter Details +--------+ + + + + | Date | Type | Department | Care Team | Description | +--------+ + + + + | 05/30/ | Telephone | [facility] | Scott Reyna, | Lab Order | | 2019 | | MED CTR | PharmD [address] | | | | | PHARMACOTHERAPY | [place], [place] | | | | | CLINIC [address] | [address] | | | | | [place], [place] | | | | | | [address] | | | | | | [phone] | | | +--------+ + + + [...] Telephone Encounter - Scott Reyna PharmD - 05/30/2019 2:50 PM PDTFormatting of this no te might be different from the original. HEPATITIS C CLINIC Follow Up Provider: Scott Reyna, OtiliaD Encounter Date: 05/30/2019 Patient: Chaparrita Jack : 1995 CSN: [id number] Referral Information Referring Provider: Tavia Mora Medication to be started: Mavyret Medication Therapy Duration: 8 weeks Hep C indications: B18.2 HCV Genotype: 1a HCV RNA Result and Date: 822,299 03/26/2019 HIV: neg APRI=0.86 ASSESSMENT Reason for Call: Review 2 week labs. Chaparrita Jack is a 23 y.o. female who has been referred to the [place] [facility] by Tavia SARGENT for hepatitis C treatment. Chaparrita has been prescribed Mavyre t for 8 weeks. PLAN 1. Labs have been drawn but I have not been sent a copy of the results yet. Said that I wo uld call her back if something was abnormal and discuss it with her. If they are at baselin e or WNL I will talk to her again at the 1 month check. 2. Chaparrita denies any missed doses of the Hepatitis C treatment therapy. 3.Chaparrita does not report medication changes. 4. Patient does report adverse drug reactions to hepatitis C medication. Drug reactions inc lude fatigue. Patient has been counseled to continue her treatment and let us know if the fa tigue worsens. She is already taking her dose in the evening with dinner. Says she is able to manage the fatigue thus far herself. 5. Chaparrita does not have any questions at this time. 6. Chaparrita lab schedule is as follows: -2 weeks: 05/28/19 -1 month: 06/11/19 -2 months: 07/09/19 -SVR12: 10/01/19 Labs to [facility] in [place]. Laboratory Findings @LASTCREAT@ No results found for: ALT, AST, GGT, ALKPHOS, BILITOT Lab Results Component Value Date WBC 8.5 07/09/2014 HGB 14.3 10/26/2015 HCT 42 10/26/2015 MCV 81.4 07/09/2014 PLT 177 07/09/2014 No results found for: TSH, Z4KOBFO, THYROIDAB No results found for: INR, PROTIME No results found for this or any previous visit. Lab Results Component Value Date HCV 133,707 11/21/2018 Total time spent on the phone with Chaparrita was 5 minutes with greater than 50% of time spent reviewing medications with patient, counseling, education, and/or coordinating care as outl ined above. Scott Reyna, Carl DATE/TIME: 05/30/2019 14:50 documented in this encounter Plan of Treatment Not on filedocumented as of this encounter Visit Diagnoses Not on filedocumented in this encounter"
--- OUTSIDE RECORDS SUMMARY | ~2020-07-16 | XMS | Encounter Summary ---
Demographics + + + | Address | [address] | | | [place] [address] | + + + | Home Phone | | + + + | Preferred Language | Unknown | + + + | Marital Status | Single | + + + | Faith Affiliation | Unknown | + + + | Race | White | + + + | Ethnic Group | Not or | + + + Author + + + | Author | [facility] | | | and [place] | + + + | Organization | [facility] | | | [...] Team Providers + +------+ + | Care Military Science Teacher Name | Role | Phone | + +------+ + | Elva Cruz MD | PCP | | + +------+ + Reason for Visit + +--------+ + | Reason | Onset | Comments | | | Date | | + +--------+ + | Lab Results | 07/16/ | | | | 2018 | | + +--------+ + Encounter Details +--------+ + + + + | Date | Type | Department | Care Team | Description | +--------+ + + + + | 07/16/ | Telephone | [facility] | Scott Reyna, | Lab Results | | 2019 | | MED CTR | PharmD [address] | | | | | PHARMACOTHERAPY | [place], [place] | | | | | CLINIC [address] | [address] | | | | | [place], [place] | | | | | | [address] | | | | | | [phone] | | | +--------+ + + + [...] Telephone Encounter - Scott Reyna PharmD - 07/16/2019 3:22 PM PDTFormatting of this no te might be different from the original. HEPATITIS C CLINIC Follow Up Provider: Scott Reyna PharmD Encounter Date: 07/16/2019 Patient: Chaparrita Jack : 1995 CSN: [id number] Referral Information Referring Provider: Tavia Mora Medication to be started: Mavyret Medication Therapy Duration: 8 weeks Hep C indications: B18.2 HCV Genotype: 1a HCV RNA Result and Date: 822,299 03/26/2019 HIV: neg APRI=0.86 ASSESSMENT Reason for Call: Review 2 month labs. Chaparrita Jack is a 24 y.o. female who has been referred to the [place] [facility] by Tavia SARGENT for hepatitis C treatment. Chaparrita has been prescribed Mavyre t for 8 weeks. PLAN 1. Labs were reviewed with Chaparrita. Results are appropriate and plan is to wait for SVR12. 2. Chaparrita does not have any questions at this time. 3. Chaparrita lab schedule is as follows: -SVR12: 10/01/19 Labs to [facility] in [place]. Laboratory Findings @LASTCREAT@ Lab Results Component Value Date ALT 237 (H) 02/05/2018 AST 49 (H) 02/05/2018 BILITOT 0.7 02/05/2018 Lab Results Component Value Date WBC 6.88 02/05/2018 HGB 13.8 02/05/2018 HCT 42 10/26/2015 MCV 83.4 02/05/2018 LABPLAT 177 02/05/2018 PLT 177 07/09/2014 No results found for: TSH, L9NILPR, THYROIDAB No results found for: INR, PROTIME No results found for this or any previous visit. Lab Results Component Value Date HCV 133,707 11/21/2018 Total time spent on the phone with Chaparrita was 5 minutes with greater than 50% of time spent reviewing medications with patient, counseling, education, and/or coordinating care as outl ined above. Scott Reyna PharmD DATE/TIME: 07/16/2019 15:23 elephone Encounte r - Scott Reyna PharmD - 07/16/2019 2:48 PM PDT1st attempt: Patient did not answer but left message to call us back Patients end of treatment labs are wnl and her HCV is not detected. Plan will be to wait f or SVR12 due 10/01/19. Scott Reyna PharmD 07/16/2019 14:52 documented in this encounter Plan of Treatment Not on filedocumented as of this encounter Visit Diagnoses Not on filedocumented in this encounter"
--- OUTSIDE RECORDS SUMMARY | ~2020-07-16 | XMS | Encounter Summary ---
Demographics + + + | Address | [address] | | | [place] [address] | + + + | Home Phone [...] + + + | Author | [facility] | | | and Obieana | + + + | Organization | [facility] | | | [...] Team Providers + +------+ + | Care Hvac Sales Representative Name | Role | Phone | + +------+ + | Elva Cruz MD | PCP | | + +------+ + Reason for Visit + +--------+ + | Reason | Onset | Comments | | | Date | | + +--------+ + | Recall For Services | 04/10/ | | | (DMST) | 2019 | | + +--------+ + Encounter Details +--------+ + + + + | Date | Type | Department | Care Team | Description | +--------+ + + + + | 04/10/ | Telephone | [facility] | [facility] | [facility] | | 2019 | | GASTROENTEROLOGY | [address] | (DMST) | | | | [address] [place] | [address] | | | | | [address] [place], [place] | [place], [place] | | | | | [address] | [address] | | | | | [phone] | | | +--------+ + + + [...] Telephone Encounter - Vidhya Hartmann CMA - 04/11/2019 7:46 AM PDTReceived lab results . Will wait for imaging results to call patient with all results. elephone Encounter - Srinath Mcadams - 03/23 10:28 AM PDTName of Caller: Chaparrita Jack Name of Patient: Chaparrita Jack Reason for call: Patient called and wanted to know her labs results that were taken on . Informed patient that [facility]. Let the patient know that I will call to request results. Patient stated that she will do her US on April 23. Aware that [facility] is out of the office until April. Routing to clinical staff. Provider/Nurse: [facility] Call back number: [phone] documented in this encou nter Plan of Treatment Not on filedocumented as of this encounter Visit Diagnoses Not on filedocumented in this encounter"
--- OUTSIDE RECORDS SUMMARY | ~2020-07-16 | XMS | Encounter Summary ---
Demographics + + + | Address | [address] | | | [place] [address] | + + + | Home Phone | | + + + | Preferred Language | Unknown | + + + | Marital Status | Single | + + + | Mu-Ism Affiliation | Unknown | + + + | Race | White | + + + | Ethnic Group | Not or | + + + Author + + + | Author | [facility] | | | and [place]ie[place] | + + + | Organization | [facility] | | | [...] Team Providers + +------+ + | Care Order Puller Name | Role | Phone | + +------+ + | Elva Cruz MD | PCP | | + +------+ + Reason for Visit + +--------+ + | Reason | Onset | Comments | | | Date | | + +--------+ + | Lab Order | 07/12/ | | | | 2018 | | + +--------+ + Encounter Details +--------+ + + + + | Date | Type | Department | Care Team | Description | +--------+ + + + + | 07/12/ | Telephone | [facility] | Patrice Betancourt, | Lab Order | | 2019 | | MED CTR | Software Integrator | | | | | PHARMACOTHERAPY | | | | | | CLINIC [address] | | | | | | [address] [place], [place] | | | | | | [address] | | | | | | [phone] | | | +--------+ + + + [...] Telephone Encounter - Scott Reyna PharmD - 07/12/2019 10:31 AM PDTPhone call reviewed donna juarez PharmD resident. Agree with plan. Scott Reyna PharmD 07/12/2019 10:31 elephone Patrice Lamar, Software Integrator - 07/12/2019 8:42 AM [facility] [place] [facility] to check if patient has had labs drawn. The lab had issues finding lab orders when she we nt on 07/09, her scheduled date. Labs have been reordered. She has not returned to have labs drawn yet. Will follow up with patient next week. Patrice Betancourt, Software Integrator 07/12/2019 8:50 docum ented in this encounter Plan of Treatment Not on filedocumented as of this encounter Visit Diagnoses Not on filedocumented in this encounter"
--- OUTSIDE RECORDS SUMMARY | ~2020-07-16 | XMS | Encounter Summary ---
Demographics + + + | Address | [address] | | | [place] [address] | + + + | Home Phone | | + + + | Preferred Language | Unknown | + + + | Marital Status | Single | + + + | Episcopal Affiliation | Unknown | + + + | Race | White | + + + | Ethnic Group | Not or | + + + Author + + + | Author | [facility] | | | and Ob[place] | + + + | Organization | [facility] | | | and [...] Team Providers + +------+ + | Care Building Performance Consultant Name | Role | Phone | + +------+ + | Elva Cruz MD | PCP | | + +------+ + Reason for Visit + +--------+ + | Reason | Onset | Comments | | | Date | | + +--------+ + | Lab Results | 10/08/ | | | | 2019 | | + +--------+ + Encounter Details +--------+ + + + + | Date | Type | Department | Care Team | Description | +--------+ + + + + | 10/08/ | Telephone | [facility] | Scott Reyna, | Lab Results | | 2019 | | MED CTR | PharmD [address] | | | | | PHARMACOTHERAPY | [place], [place] | | | | | CLINIC [address] | [address] | | | | | [place], [place] | | | | | | [address] | | | | | | [phone] | | | +--------+ + + + [...] Telephone Encounter - Scott Reyna PharmD - 10/08/2019 3:03 PM PST1st attempt: no answe r and mail box is full unable to leave message. Patient has SVR12 testing done for HCV. It came back as not detected and patient is consid ered cured. Will let [facility] office know and if they need to follow up they suzy l call her. Scott Reyna, PharmD 10/08/2019 3:10 PM documented in this encounter Plan of Treatment Not on filedocumented as of this encounter Visit Diagnoses Not on filedocumented in this encounter"
--- OUTSIDE RECORDS SUMMARY | ~2020-07-16 | XMS | Encounter Summary ---
Demographics + + + | Address | [email or web address] | | | [place] [address] | + + + | Home Phone | | + + + | Preferred Language | Unknown | + + + | Marital Status | Single | + + + | Pentecostalism Affiliation | Unknown | + + + | Race | White | + + + | Ethnic Group | Not or | + + + Author + + + | Author | [facility] | | | and [place] | + + + | Organization | [facility] | | | [...] Team Providers + +------+ + | Care Science Tutor Name | Role | Phone | + +------+ + | Kyra Lopes | PCP | | + +------+ + Reason for Visit + + + | Reason | Comments | + + + | Abdominal Pain | | | () | | + + + Encounter Details +--------+ + + + + | Date | Type | Department | Care Team | Description | +--------+ + + + + | 10/26/ | Emergency | [facility] | [place], | Abdominal pain | | 2015 | | [facility] | MD Christiano [address] | affecting | | | | EM[facility] | [address] [place], | (Primary Dx) | | | | [address] | [place] [address] | | | | | [place] | [phone] | | | | | [address] | | | | | | [phone] | | | +--------+ + + + [...] + + + | Blood Pressure | 130/71 | 10/26/2015 8:29 PM | | | | | PST | | + + + + + | Pulse | 86 | 10/26/2015 8:29 PM | | | | | PST | | + + + + + | Temperature | 36.7 C (98.1 F) | 10/26/2015 6:47 PM | | | | | PST | | + + + + + | Respiratory Rate | 16 | 10/26/2015 8:29 PM | | | | | PST | | + + + + + | Oxygen Saturation | 96% | 10/26/2015 8:29 PM | | | | | PST | | + + + + + | Inhaled Oxygen | - | - | | | Concentration | | | | + + + + + | Weight | 90.7 kg (200 lb) | 10/26/2015 6:47 PM | | | | | PST | | + + + + + | Height | 170.2 cm (5' 7") | 10/26/2015 6:47 PM | | | | | PST | | + + + + + | Body Mass Index | 31.32 | 10/26/2015 6:47 PM | | | | | PST | | + + + + + documented in this encounter Discharge Instructions Instructions Christiano Kelly MD - 10/26/2015Discharge to home Follow up with Dr. Thomas in 2 days call tomorrow to arrange appointment and to have quant itative hCG redrawn Return to emergency department if increased pain, fainting, or abdominal distention documented in this encounter ED Notes Christiano Kelly MD - 10/26/2015 7:17 PM PST eMERGENCY dEPARTMENT eNCOUnter Patient Name: Chaparrita Jack : 1995 Medical Record: [id number] CHIEF COMPLAINT Chief Complaint Patient presents with Abdominal Pain () HPI 19:17: Chaparrita Jack is a 20 y.o. female who presents to the ED from [place] [facility] due to left lower abdominal pain. Patient is currently and suspects she is 5 weeks gricelda ng (last menstrual cycle was 09/22/15). She reports the abdominal pain onset suddenly 6-7 day s ago and has been a constant dull sensation. Pain has progressively increased in severity a nd has began to radiate into her upper abdomen. Current pain is 3-4/10. Pain improves while laying flat and worsens with walking. She denies vomiting, vaginal bleeding, bowel issues, o r urinary issues. Patient reports this is her 3rd . First was a successfu l vaginal delivery. Second was an ectopic and her right fallopian tube was excised . REVIEW OF SYSTEMS GI: Reports left lower quadrant abdominal pain. Denies changes in bowel habits. Denies naus ea or vomiting. : Denies changes in urinary issues. Denies vaginal bleeding. A complete review of systems was performed unless noted above. PAST MEDICAL HISTORY Past Medical History Diagnosis Date Back pain Smokes trying to quit Abdominal pain Ectopic recently @ 4 WEEK AGO; no surgery Anxiety HPV in female FAMILY HISTORY No family history on file. SOCIAL HISTORY History Social History Marital Status: Single Spouse Name: N/A Number of Children: N/A Years of Education: N/A Social History Main Topics Smoking status: Current Every Day Smoker -- 0.25 packs/day for 6 years Types: Cigarettes Smokeless tobacco: Never Used Alcohol Use: No Drug Use: No Sexual Activity: None Other Topics Concern None Social History Narrative Lives in [place]. SURGICAL HISTORY Past Surgical History Procedure Laterality Date Tympanostomy tube placement Laparoscopy 07/09/2014 DIAGNOSTIC LAPAROSCOPY, Rt Salphingectomy; Laterality: N/A; Surgeon: Kian Hubbard; Location: [facility] MAIN OR CURRENT MEDICATIONS No current outpatient prescriptions on file. ALLERGIES Allergies Allergen Reactions Miconazole Nitrate Other (See Comments) BURNING AND ITCHING AT SITE PHYSICAL EXAM VITAL SIGNS: (first vital signs):Temp: 36.7 C (98.1 F) Pulse: 98 Resp: 18 SpO2: 96 % BP : 104/74 mmHg SpO2 has been reviewed by me and is within normal limits on room air. General: Alert young female with an overweight body habitus. Concerned affect. Alert and o riented. HEENT: PERRLA EOM normal. TMs normal. Throat not erythematous. Neck: Supple without any adenopathy or JVD. No soft tissue swelling noted. Heart: Heart sounds normal without murmur or gallop Lungs: Clear without wheezes or crackles Abdomen: No hepatomegaly or splenomegaly. Soft. Complaining of left lower quadrant discomf ort but no guarding or masses noted. Back: No spinal tenderness noted. No flank tenderness Genitalia & Rectal: Pelvic exam is deferred. Extremities: No swelling noted Neurologic & Psychiatric: No focal sensory or deficits noted. LABS Results for orders placed or performed during the hospital encounter of 10/26/15 POCT Hemoglobin and Hematocrit Result Value Ref Range POC HEMOGLOBIN 14.3 11.3 - 15.5 g/dL POC Hct 42 34.0 - 46.0 % RADIOLOGY Ultrasound performed at [place] was reviewed. PROCEDURES None COURSE & MEDICAL DECISION MAKING Pertinent Labs & Imaging studies reviewed. (See chart for details) 20:42: I consulted with Dr. Winslow (QUALITY CONTROL MICROBIOLOGY SUPERVISOR) concerning the patient's case. She would like t he patient to follow up with Dr. Thomas (QUALITY CONTROL MICROBIOLOGY SUPERVISOR) this week. 21:01: I rechecked the patient and explained my consultation with Dr. Winslow (QUALITY CONTROL MICROBIOLOGY SUPERVISOR) and h er recommendation for outpatient follow up due to the being in the early stages. W e discussed the plan for follow up and the possible outcomes. Patient voices some concerns d ue to living far from town in [place] and explains that her pain currently is different from her viable . We discussed the possible option of consulting with Dr. Nayla kaplan and explaining that the patient has fear with being discharged and would like to be obs erved overnight. I did explain the benefits with waiting for 2 days for follow up to have re peat labs performed to confirm whether or not the is an ectopic . We also discussed the possibility of having the patient stay with a friend in [place] and await for follow up. Patient ultimately decides she will stay with a friend and follow up in 2 days w ith the QUALITY CONTROL MICROBIOLOGY SUPERVISOR clinic. She agrees to the plan for discharge. I did advise the patient to ret urn to the ED if she notes increasing abdominal pain, abdominal distension, light headedness , and dizziness. She was advised to call tomorrow to arrange follow-up and repeat quantitat dillon HCG within the next 48 hours. Repeat hematocrit was stable. Ultrasound report from [place] was reviewed demonstrating a ring of fire sign suspicio us for ectopic associated with the left ovary, and a thick-walled cystic structure medial to the left ovary with associated adjacent free fluid. Intrauterine gestation sac w as not seen at the time of the study which was done at 12:15 today at the other facility. H ematocrit was 46 earlier this afternoon. If the patient has an ectopic , she may b e a candidate for methotrexate at some point. Dr. March felt that the patient could be sa solo discharged with close follow-up in the near future. Patient experienced some reluctanc e going home; I did offer admission to the hospital observation overnight but after the murali ent considered options, she preferred to stay in town with a friend and follow-up as an outp atient with within the next 48 hours. FINAL IMPRESSION 1. Abdominal pain affecting PLAN Patient is discharged in stable condition. Follow-up Information Follow up with Tanika Thomas MD. Schedule an appointment as soon as possible for a visi t in 2 days. Specialty: Obstetrics and Gynecology Why: Call tomorrow to arrange follow-up in 2 days Contact information: [address] [place] [facility] [id number] This chart was documented by Patience Malave, scribing for and in the presence of Christiano villalobos MD. I have reviewed the information recorded by the scribe for accuracy and agree with its cont ents. Chart Reviewed and Completed: 21:30 10/26/15 Christiano Kelly MD 10/26/15 [id number] dwa rdsDanelle RN - 10/26/2015 6:44 PM PSTBed: ED09 Expected date: Expected time: Means of arrival: Comments: ems documented in this encounter Miscellaneous Notes ED Triage Notes - Jonas Corona RN - 10/26/2015 6:45 PM PSTPt to ER [facility], with know ectopic , states has been having pain for 1 week, and US today. Pt states she has already had rt tube removed r/t tubal . Electronically si gned by Jonas Corona RN at 10/26/2015 6:47 PM PSTdocumented in this encounter Plan of Treatment Not on filedocumented as of this encounter Procedures + +--------+ + + + | Procedure Name | Priori | Date/Time | Associated Diagnosis | Comments | | | ty | | | | + +--------+ + + + | POCT HEMOGLOBIN AND | Routin | 10/26/2015 | | Results for this | | HEMATOCRIT | e | 8:38 PM | | procedure are in the | | | | PST | | results section. | + +--------+ + + + | ED INFORMATION | Routin | 10/26/2015 | | Results for this | | EXCHANGE | e | 6:45 PM | | procedure are in the | | | | PST | | results section. | + +--------+ + + + documented in this encounter Results POCT Hemoglobin and Hematocrit (10/26/2015 8:38 PM PST) + +-------+ + + + | Component | Value | Ref Range | Performed | Pathologist | | | | | At | Signature | + +-------+ + + + | Hemoglobin, | 14.3 | 11.3 - 15.5 | [facility] | | [facility] | | g/dL [facility] | | [facility] | | | | | | [facility] | | | | | | LABORATORY | | + +-------+ + + + | Hematocrit, | 42 | 34.0 - 46.0 % | [facility] | | | [facility] | [...] + + + + + | [facility] | [address] [facility] [address] | [place] [address] | | | [facility] | | | | | LABORATORY | | | | + + + + + ED INFORMATION EXCHANGE (10/26/2015 6:45 PM PST) + + | Specimen | + + | | + + + + + | Narrative | Performed At | + + + | ED/UCC VISIT TRACKING (3 MO.) Visit Date | [place] [place] | | Location Type Dx / | | | Complaint -------- | | | ---- 10/26/2015 | | | 18:44 [facility] null | | | 10/26/2015 10:22 [facility] | | | ER LAB ULTR--5WKS 10/24/2015 20:14 [facility] | | | [facility] 3WKS GEST/SIDE PAIN 09/24/2015 | | | 20:45 [facility] 0. Major | | | depressive disorder, single episode, unspecified | | | | | | 2. Anxiety disorder, unspecified | | | 3. | | | Panic disorder [episodic paroxysmal anxiety] without agoraphobia | | | | | | 4. Nicotine dependence, cigarettes, | | | uncomplicated 09/21/2015 00:11 [facility] | | | Emergency 0. Paresthesia of skin | | | 2. | | | Unspecified symptoms and signs involving cognitive functions and | | | | | | awareness | | | 3. | | | Nicotine dependence, unspecified, uncomplicated 09/13/2015 10:00 | | | [facility] Emergency 0. Pelvic and | | | perineal pain | | | 1. Palpitations | | | | | | 2. Generalized anxiety disorder 07/31/2015 18:00 | | | [facility] Emergency 0. Panic disorder | | | [episodic paroxysmal anxiety] without agoraphobia | | | | | | 0. Panic disorder [episodic paroxysmal anxiety] without | | | agoraphobia | | | 0. Panic disorder [episodic | | | paroxysmal anxiety] without agoraphobia | | | 2. | | | Anxiety disorder, unspecified | | | 2. Anxiety | | | disorder, unspecified | | | 2. Anxiety disorder, | | | unspecified 07/26/2015 15:00 [facility] | | | Emergency 0. Anxiety disorder, unspecified | | | | | | 0. Anxiety disorder, unspecified | | | 0. | | | Anxiety disorder, unspecified | | | 2. | | | Gastro-esophageal reflux disease without esophagitis | | | | | | 2. Gastro-esophageal reflux disease without esophagitis | | | | | | 2. Gastro-esophageal reflux disease without | | | esophagitis | | | 3. Generalized anxiety disorder | | | | | | 3. Generalized anxiety disorder | | | | | | 3. Generalized anxiety disorder ED VISIT | | | COUNT (1 YR.) Visits Medicaid [place] Dx Location ------ | | | --------- 11 0 | | | [facility] 1 0 | | | [facility] 12 0 | | | Total Note: Visits indicate total known visits. Medicaid [place] Dx are | | | the number of primary diagnoses on the [facility]'s non-emergent dx list. | | | | | | --- [facility] has no Care Guidelines for this patient. [facility] | | | Prescription Review PDMP Report (previous six months). Fill Date | | | Drug Description Qty. Prescriber | | | CS MED --------- | | | ---- -- | | | --- 2015-04-29 CLONAZEPAM 1 MG TABLET 60 | | | KYRA DALE 4 0.0 12 Month | | | Prescription Summary -Number of CS Rx:4 -Number of CS-II Rx:0 | | | -Total dispensed quantity:300 -Unique Prescribers:2 | | | -Unique Pharmacies:1 -Opioid Rx Count:0 -Long Acting Opioid | | | Rx Count:0 -Benzo Rx Count:3 | | + + + + +---------+ + + | Performing | Address | City/State/Zipcode | Phone Number | | Organization | | | | + +---------+ + + | [place] | | | | + +---------+ + + documented in this encounter Visit Diagnoses + + | Diagnosis | + + | Abdominal pain affecting - Primary | + + documented in this encounter
--- OUTSIDE RECORDS SUMMARY | ~2020-07-16 | XMS | Encounter Summary ---
Demographics + + + | Address | [address] | | | [place] [address] | + + + | Home Phone | | + + + | Preferred Language | Unknown | + + + | Marital Status | Single | + + + | Restorationism Affiliation | Unknown | + + + [...] Team Providers + +------+ + | Care Integrated Marketing Specialist Name | Role | Phone | + +------+ + | Elva Cruz MD | PCP | | + +------+ + Reason for Visit + +--------+ + | Reason | Onset | Comments | | | Date | | + +--------+ + | Hepatitis C | 04/11/ | | | | 2019 | | + +--------+ + Encounter Details +--------+ + + + + | Date | Type | Department | Care Team | Description | +--------+ + + + + | 04/11/ | Telephone | [facility] | [place], | Hepatitis C | | 2019 | | GASTROENTEROLOGY | [place] [address] | | | | | [address] [place] | [address] | | | | | [address] [place] | [place] | | | | | [address] | [address] | | | | | [phone] | | | +--------+ + + + [...] Encounter - Vidhya Hartmann CMA - 04/11/2019 2:54 PM PDTPatient said that e lab sent her results to her and she has looked at them and is "freaking out". Went over th e labs with her and explained that she does have a positive viral load which means she has c hronic HCV her AST and ALT are also elevated. Went over how HCV is effecting the liver and i t shows in the elevated liver function tests. Told her that Rosalie can explain this all to her when she gets back and will probably put in referral to GI pharmacist once she has the ultr asound which is scheduled for April 23. Patient felt better after talking and I assured her I will call her back once Rosalie reviews these labs. documented in this encounter Plan of Treatment Not on filedocumented as of this encounter Visit Diagnoses Not on filedocumented in this encounter
--- OUTSIDE RECORDS SUMMARY | ~2020-07-16 | XMS | Encounter Summary ---
Demographics + + + | Address | [address] | | | [place] [address] | + + + | Home Phone | | + + + | Preferred Language | Unknown | + + + | Marital Status | Single | + + + | Presybeterian Affiliation | Unknown | + + + | Race | White | + + + | Ethnic Group | Not or | + + + Author + + + | Author | [facility] | | | and [place] | + + + | Organization | [facility] | | | [...] Team Providers + +------+ + | Care Cut Off Worker Name | Role | Phone | + +------+ + | Elva Cruz MD | PCP | | + +------+ + Encounter Details +--------+ + + + + | Date | Type | Department | Care Team | Description | +--------+ + + + + | 01/17/ | Abstract | [facility] | Provider, | | | 2018 | | GASTROENTEROLOGY | MD Zachary [address] | | | | | [address] [facility] | Angely Reilly | | | | | [address], [place] | [place] [address] | | | | | [address] | | | | | | [phone] | | | +--------+ + + + [...] +--------+ + + + | EXTERNAL LAB: BUN | Routin | 12/04/2018 | | Results for this | | | e | | | procedure are in the | | | | | | results section. | + +--------+ + + + | EXTERNAL LAB: | Routin | 12/04/2018 | | Results for this | | GLUCOSE | e | | | procedure are in the | | | | | | results section. | + +--------+ + + + | EXTERNAL LAB: GGT | Routin | 12/04/2018 | | Results for this | | | e | | | procedure are in the | | | | | | results section. | + +--------+ + + + | EXTERNAL LAB: ALT | Routin | 12/04/2018 | | Results for this | | | e | | | procedure are in the | | | | | | results section. | + +--------+ + + + | EXTERNAL LAB: AST | Routin | 12/04/2018 | | Results for this | | | e | | | procedure are in the | | | | | | results section. | + +--------+ + + + | EXTERNAL LAB: | Routin | 12/04/2018 | | Results for this | | ALKALINE PHOSPHATASE | e | | | procedure are in the | | | | | | results section. | + +--------+ + + + | EXTERNAL LAB: | Routin | 12/04/2018 | | Results for this | | BILIRUBIN, TOTAL | e | | | procedure are in the | | | | | | results section. | + +--------+ + + + | EXTERNAL LAB: | Routin | 12/04/2018 | | Results for this | | ALBUMIN | e | | | procedure are in the | | | | | | results section. | + +--------+ + + + | EXTERNAL LAB: | Routin | 12/04/2018 | | Results for this | | PROTEIN, TOTAL | e | | | procedure are in the | | | | | | results section. | + +--------+ + + + | EXTERNAL LAB: | Routin | 12/04/2018 | | Results for this | | CALCIUM | e | | | procedure are in the | | | | | | results section. | + +--------+ + + + | EXTERNAL LAB: CARBON | Routin | 12/04/2018 | | Results for this | | DIOXIDE | e | | | procedure are in the | | | | | | results section. | + +--------+ + + + | EXTERNAL LAB: | Routin | 12/04/2018 | | Results for this | | CHLORIDE | e | | | procedure are in the | | | | | | results section. | + +--------+ + + + | EXTERNAL LAB: | Routin | 12/04/2018 | | Results for this | | POTASSIUM | e | | | procedure are in the | | | | | | results section. | + +--------+ + + + | EXTERNAL LAB: SODIUM | Routin | 12/04/2018 | | Results for this | | | e | | | procedure are in the | | | | | | results section. | + +--------+ + + + | EXTERNAL LAB: CBC | Routin | 12/04/2018 | | Results for this | | | e | | | procedure are in the | | | | | | results section. | + +--------+ + + + | EXTERNAL LAB: EGFR | Routin | 12/04/2018 | | Results for this | | | e | | | procedure are in the | | | | | | results section. | + +--------+ + + + | EXTERNAL LAB: | Routin | 12/04/2018 | | Results for this | | CREATININE | e | | | procedure are in the | | | | | | results section. | + +--------+ + + + | CBC WITH | Routin | 12/04/2018 | | Results for this | | DIFFERENTIAL | e | | | procedure are in the | | | | | | results section. | + +--------+ + + + | COMPREHENSIVE | Routin | 12/04/2018 | | Results for this | | METABOLIC PANEL | e | | | procedure are in the | | | | | | results section. | + +--------+ + + + | HIV 1 AND HIV 2 AG | Routin | 11/21/2018 | | Results for this | | AND AB CONFIRMATION, | e | | | procedure are in the | | SERUM | | | | results section. | + +--------+ + + + | EXTERNAL LAB: GGT | Routin | 11/21/2018 | | Results for this | | | e | | | procedure are in the | | | | | | results section. | + +--------+ + + + | EXTERNAL LAB: | Routin | 11/21/2018 | | Results for this | | HEPATITIS C AB | e | | | procedure are in the | | | | | | results section. | + +--------+ + + + | ED, JERAMIE,C4, DNA DS, | Routin | 11/21/2018 | | Results for this | | AMA, APCA1+ | e | | | procedure are in the | | | | | | results section. | + +--------+ + + + | HEPATITIS C | Routin | 11/21/2018 | | Results for this | | GENOTYPING | e | | | procedure are in the | | | | | | results section. | + +--------+ + + + | HEPATITIS C | Routin | 11/21/2018 | | Results for this | | RNA,QUANTITATIVE,PCR | e | | | procedure are in the | | | | | | results section. | + +--------+ + + + documented in this encounter Results CBC with Differential (12/04/2018) + + + + + + | Component | Value | Ref Range | Performed | Pathologist | | | | | At | Signature | + + + + + + | MCH | 25.0 (A) | 26.0 - 33.0 pg | | | + + + + + + | MCHC | 32.0 | 30.0 - 36.0 | | | | | | g/dL | | | + + + + + + | Basophils % | 0.6 | 0 - 2 | | | + + + + + + + + | Specimen | + + | Blood | + + Comprehensive Metabolic Panel (12/04/2018) + +-------+ + + + | Component | Value | Ref Range | Performed | Pathologist | | | | | At | Signature | + +-------+ + + + | Anion Gap | 12 | 7 - 21 mmol/L | | | + +-------+ + + + | BUN/Creatin | 12.7 | 6 - 28.6 | | | | ine Ratio | | | | | + +-------+ + + + | Globulin | 2.8 | 1.8 - 3.5 | | | + +-------+ + + + | Albumin/Carla | 1.5 | 1.1 - 2.4 | | | | bulin Ratio | | | | | + +-------+ + + + + + | Specimen | + + | Blood | + + External Lab: BUN (12/04/2018) + +-------+ + + + | Component | Value | Ref Range | Performed | Pathologist | | | | | At | Signature | + +-------+ + + + | BUN, | 9 | 6 - 23 | EXTERNAL | | | External | | | LAB | | + +-------+ + + + + +---------+ + + | Performing | Address | City/State/Zipcode | Phone Number | | Organization | | | | + +---------+ + + | EXTERNAL LAB | | | | + +---------+ + + External Lab: Glucose (12/04/2018) + +-------+ + + + | Component | Value | Ref Range | Performed | Pathologist | | | | | At | Signature | + +-------+ + + + | Glucose, | 89 | 70 - 100 | EXTERNAL | | | External | | | LAB | | + +-------+ + + + + +---------+ + + | Performing | Address | City/State/Zipcode | Phone Number | | Organization | | | | + +---------+ + + | EXTERNAL LAB | | | | + +---------+ + + External Lab: GGT (12/04/2018) + +-------+ + + + | Component | Value | Ref Range | Performed | Pathologist | | | | | At | Signature | + +-------+ + + + | GGT, | 20 | 5 - 60 | EXTERNAL | | | External | | | LAB | | + +-------+ + + + + +---------+ + + | Performing | Address | City/State/Zipcode | Phone Number | | Organization | | | | + +---------+ + + | EXTERNAL LAB | | | | + +---------+ + + External Lab: ALT (12/04/2018) + +---------+ + + + | Component | Value | Ref Range | Performed | Pathologist | | | | | At | Signature | + +---------+ + + + | ALT, | 137 (A) | 7 - 52 | EXTERNAL | | | External | | | LAB | | + +---------+ + + + + +---------+ + + | Performing | Address | City/State/Zipcode | Phone Number | | Organization | | | | + +---------+ + + | EXTERNAL LAB | | | | + +---------+ + + External Lab: JANETH (12/04/2018) + +--------+ + + + | Component | Value | Ref Range | Performed | Pathologist | | | | | At | Signature | + +--------+ + + + | AST, | 66 (A) | 13 - 39 | EXTERNAL | | | External | | | LAB | | + +--------+ + + + + +---------+ + + | Performing | Address | City/State/Zipcode | Phone Number | | Organization | | | | + +---------+ + + | EXTERNAL LAB | | | | + +---------+ + + External Lab: Alkaline Phosphatase (12/04/2018) + +--------+ + + + | Component | Value | Ref Range | Performed | Pathologist | | | | | At | Signature | + +--------+ + + + | ALP, | 29 (A) | 31 - 130 | EXTERNAL | | | External | | | LAB | | + +--------+ + + + + +---------+ + + | Performing | Address | City/State/Zipcode | Phone Number | | Organization | | | | + +---------+ + + | EXTERNAL LAB | | | | + +---------+ + + External Lab: Bilirubin, Total (12/04/2018) + +-------+ + + + | Component | Value | Ref Range | Performed | Pathologist | | | | | At | Signature | + +-------+ + + + | Bilirubin, | 0.4 | 0 - 1.2 | EXTERNAL | | | Total, | | | LAB | | | External | | | | | + +-------+ + + + + +---------+ + + | Performing | Address | City/State/Zipcode | Phone Number | | Organization | | | | + +---------+ + + | EXTERNAL LAB | | | | + +---------+ + + External Lab: Albumin (12/04/2018) + +-------+ + + + | Component | Value | Ref Range | Performed | Pathologist | | | | | At | Signature | + +-------+ + + + | Albumin, | 4.2 | 3.5 - 5 | EXTERNAL | | | External | | | LAB | | + +-------+ + + + + +---------+ + + | Performing | Address | City/State/Zipcode | Phone Number | | Organization | | | | + +---------+ + + | EXTERNAL LAB | | | | + +---------+ + + External Lab: Protein, Total (12/04/2018) + +-------+ + + + | Component | Value | Ref Range | Performed | Pathologist | | | | | At | Signature | + +-------+ + + + | Protein, | 7 | 6 - 8.3 | EXTERNAL | | | Total, | | | LAB | | | External | | | | | + +-------+ + + + + +---------+ + + | Performing | Address | City/State/Zipcode | Phone Number | | Organization | | | | + +---------+ + + | EXTERNAL LAB | | | | + +---------+ + + External Lab: Calcium (12/04/2018) + +-------+ + + + | Component | Value | Ref Range | Performed | Pathologist | | | | | At | Signature | + +-------+ + + + | Calcium, | 9 | 8.5 - 10.3 | EXTERNAL | | | External | | | LAB | | + +-------+ + + + + +---------+ + + | Performing | Address | City/State/Zipcode | Phone Number | | Organization | | | | + +---------+ + + | EXTERNAL LAB | | | | + +---------+ + + External Lab: Carbon Dioxide (12/04/2018) + +-------+ + + + | Component | Value | Ref Range | Performed | Pathologist | | | | | At | Signature | + +-------+ + + + | Carbon | 25 | 19 - 31 | EXTERNAL | | | Dioxide, | | | LAB | | | External | | | | | + +-------+ + + + + +---------+ + + | Performing | Address | City/State/Zipcode | Phone Number | | Organization | | | | + +---------+ + + | EXTERNAL LAB | | | | + +---------+ + + External Lab: Chloride (12/04/2018) + +-------+ + + + | Component | Value | Ref Range | Performed | Pathologist | | | | | At | Signature | + +-------+ + + + | Chloride, | 105 | 95 - 112 | EXTERNAL | | | External | | | LAB | | + +-------+ + + + + +---------+ + + | Performing | Address | City/State/Zipcode | Phone Number | | Organization | | | | + +---------+ + + | EXTERNAL LAB | | | | + +---------+ + + External Lab: Potassium (12/04/2018) + +-------+ + + + | Component | Value | Ref Range | Performed | Pathologist | | | | | At | Signature | + +-------+ + + + | Potassium, | 3.7 | 3.6 - 5.1 | EXTERNAL | | | External | | | LAB | | + +-------+ + + + + +---------+ + + | Performing | Address | City/State/Zipcode | Phone Number | | Organization | | | | + +---------+ + + | EXTERNAL LAB | | | | + +---------+ + + External Lab: Sodium (12/04/2018) + +-------+ + + + | Component | Value | Ref Range | Performed | Pathologist | | | | | At | Signature | + +-------+ + + + | Sodium, | 138 | 132 - 143 | EXTERNAL | | | External | | | LAB | | + +-------+ + + + + +---------+ + + | Performing | Address | City/State/Zipcode | Phone Number | | Organization | | | | + +---------+ + + | EXTERNAL LAB | | | | + +---------+ + + External Lab: CBC (12/04/2018) + + + + + + | Component | Value | Ref Range | Performed | Pathologist | | | | | At | Signature | + + + + + + | WBC, | 5.5 | 4.5 - 11 | EXTERNAL | | | External | | | LAB | | + + + + + + | HGB, | 10.3 (A) | 12 - 16 | EXTERNAL | | | External | | | LAB | | + + + + + + | HCT, | 32.2 (A) | 35 - 45 | EXTERNAL | | | External | | | LAB | | + + + + + + | PLT, | 214 | 140 - 440 | EXTERNAL | | | External | | | LAB | | + + + + + + | Neutrophils | 48.1 (A) | 140 - 440 | EXTERNAL | | | %, | | | LAB | | | External | | | | | + + + + + + | Lymphocytes | 41.1 | 24 - 44 | EXTERNAL | | | %, | | | LAB | | | External | | | | | + + + + + + | Monocytes | 9.2 | 0 - 12 | EXTERNAL | | | %, External | | | LAB | | + + + + + + | Eosinophils | 1 | 0 - 6 | EXTERNAL | | | %, | | | LAB | | | External | | | | | + + + + + + | Neutrophils | 2.65 | 2 - 6.9 | EXTERNAL | | | , Absolute, | | | LAB | | | External | | | | | + + + + + + | Lymphocytes | 2.26 | 0.6 - 3.4 | EXTERNAL | | | , Absolute, | | | LAB | | | External | | | | | + + + + + + | Monocytes, | 0.51 | 0 - 1.1 | EXTERNAL | | | Absolute, | | | LAB | | | External | | | | | + + + + + + | Eosinophils | 0.06 | 0 - 0.7 | EXTERNAL | | | , Absolute | | | LAB | | + + + + + + | Basophils, | 0.03 | 0 - 0.2 | EXTERNAL | | | Absolute | | | LAB | | + + + + + + | RBC, | 4.16 | 3.8 - 5.1 | EXTERNAL | | | External | | | LAB | | + + + + + + | MCV, | 78 (A) | 81 - 99 | EXTERNAL | | | External | | | LAB | | + + + + + + | RDW, | 13.7 | 10.5 - 15 | EXTERNAL | | | External | | | LAB | | + + + + + + + +---------+ + + | Performing | Address | City/State/Zipcode | Phone Number | | Organization | | | | + +---------+ + + | EXTERNAL LAB | | | | + +---------+ + + External Lab: eGFR (12/04/2018) + +-------+ + + + | Component | Value | Ref Range | Performed | Pathologist | | | | | At | Signature | + +-------+ + + + | eGFR, | >60 | 60 - 99,999 | EXTERNAL | | | External | | | LAB | | + +-------+ + + + + + | Specimen | + + | Blood | + + + +---------+ + + | Performing | Address | City/State/Zipcode | Phone Number | | Organization | | | | + +---------+ + + | EXTERNAL LAB | | | | + +---------+ + + External Lab: Creatinine (12/04/2018) + +-------+ + + + | Component | Value | Ref Range | Performed | Pathologist | | | | | At | Signature | + +-------+ + + + | Creatinine, | 0.71 | 0.6 - 1.35 | EXTERNAL | | | External | | | LAB | | + +-------+ + + + + + | Specimen | + + | Blood | + + + +---------+ + + | Performing | Address | City/State/Zipcode | Phone Number | | Organization | | | | + +---------+ + + | EXTERNAL LAB | | | | + +---------+ + + External Lab: Hepatitis C Ab (11/21/2018) + +-------+ + + + | Component | Value | Ref Range | Performed | Pathologist | | | | | At | Signature | + +-------+ + + + | Signal/Cuto | 41.11 | | | | | ff | | | | | + +-------+ + + + + + | Specimen | + + | | + + HIV 1 and HIV 2 AG and AB Confirmation (11/21/2018) + + + + + + | Component | Value | Ref Range | Performed | Pathologist | | | | | At | Signature | + + + + + + | HIV 1/2 | Non Reactive | | | | | Ag/Ab | | | | | + + + + + + + + | Specimen | + + | Blood | + + ED, JERAMIE,C4, DNA DS, AMA, APCA1+ (11/21/2018) + +-------+ + + + | Component | Value | Ref Range | Performed | Pathologist | | | | | At | Signature | + +-------+ + + + | ED Titer | <1:80 | | | | + +-------+ + + + | Nuclear Ab | N/A | | | | | Pattern.Nuc | | | | | | leolar | | | | | + +-------+ + + + | ED | NO | | | | + +-------+ + + + + + | Specimen | + + | Blood | + + External Lab: GGT (11/21/2018) + +-------+ + + + | Component | Value | Ref Range | Performed | Pathologist | | | | | At | Signature | + +-------+ + + + | GGT, | 28 | 5 - 60 | EXTERNAL | | | External | | | LAB | | + +-------+ + + + + +---------+ + + | Performing | Address | City/State/Zipcode | Phone Number | | Organization | | | | + +---------+ + + | EXTERNAL LAB | | | | + +---------+ + + Hepatitis C Genotyping (11/21/2018) + +-------+ + + + | Component | Value | Ref Range | Performed | Pathologist | | | | | At | Signature | + +-------+ + + + | HCV | 1a | | | | | Genotype | | | | | + +-------+ + + + + + | Specimen | + + | Blood | + + Hepatitis C RNA, quantitative, PCR (11/21/2018) + +---------+ + + + | Component | Value | Ref Range | Performed | Pathologist | | | | | At | Signature | + +---------+ + + + | HCV | 133,707 | | | | | Quantitativ | | | | | | e | | | | | + +---------+ + + + | HCV | 5.13 | | | | | Quantitativ | | | | | | e Log | | | | | + +---------+ + + + + + | Specimen | + + | Blood | + + documented in this encounter Visit Diagnoses Not on filedocumented in this encounter"
--- OUTSIDE RECORDS SUMMARY | ~2020-07-16 | XMS | Encounter Summary ---
Demographics + + + | Address | [address] | | | [place] [address] | + + + | Home Phone [...] Author + + + | Author | [facility] | | | and [place] | + + + | Organization | [facility] | | | and [...] Team Providers + +------+ + | Care Nut Tightener Name | Role | Phone | + [...] + + | 10/03/ | Telephone | [facility] | Scott Reyna, | Lab Order | | 2019 | | MED CTR | PharmD [address] | | | | | PHARMACOTHERAPY | [place], [place] | | | | | CLINIC [address] | [address] | | | | | [place], [place] | | | | | | [address] | | | | | | [phone] | | | +--------+ + + + [...] Encounter - Scott Reyna PharmD - 10/03/2019 1:52 PM PST1st attempt: no answe r and mail box is full. There has been no SVR12 results for Chaprarita. Called [facility] and they dont have any new re sults and do have her current order for HCV quant. Tried to contact chaparrita but unable to le ave voicemail. Winnie says active, will try and send her a message. Scott Reyna, Pharm[place] 10/03/2019 1:55 PM documented in this encounter Plan of Treatment Not on filedocumented as of this encounter Visit Diagnoses Not on filedocumented in this encounter"
--- OUTSIDE RECORDS SUMMARY | ~2020-07-16 | XMS | Encounter Summary ---
Demographics + + + | Address | [address] | | | [place] [address] | + + + | Home Phone | | + + + | Preferred Language | Unknown | + + + | Marital Status | Single | + + + | Shinto Affiliation | Unknown | + + + | Race | White | + + + | Ethnic Group | Not or | + + + Author + + + | Author | [facility] | | | and [place] | + + + | Organization | [facility] | | | [...] Team Providers + +------+ + | Care Folding Machine Setter Name | Role | Phone | + +------+ + | Elva Cruz MD | PCP | | + +------+ + Encounter Details +--------+ + + + + | Date | Type | Department | Care Team | Description | +--------+ + + + + | 09/27/ | Orders Only | [facility] | Scott Reyna W, | Chronic hepatitis C | | 2019 | | MED CTR | PharmD [address] | without hepatic coma | | | | PHARMACOTHERAPY | [place], [place] | (HCC) (Primary Dx) | | | | CLINIC [address] | [address] | | | | | [place], [place] | | | | | | [address] | | | | | | [phone] | | | +--------+ + + + [...]
--- OUTSIDE RECORDS SUMMARY | ~2020-07-16 | XMS | Encounter Summary ---
Demographics + + + | Address | [address] | | | [place] [address] | + + + | Home Phone [...] Author + + + | Author | [facility] | | | and [place] | + + + | Organization | [facility] | | | [...] Team Providers + +------+ + | Care Rn Intensive Care Unit Name | Role | Phone | + +------+ + | Elva Cruz MD | PCP | | + +------+ + Reason for Visit + +--------+ + | Reason | Onset | Comments | | | Date | | + +--------+ + | Lab Results | 06/13/ | | | | 2019 | | + +--------+ + Encounter Details +--------+ + + + + | Date | Type | Department | Care Team | Description | +--------+ + + + + | 06/13/ | Telephone | [facility] | Scott Reyna, | Lab Results | | 2019 | | MED CTR | PharmD [address] | | | | | PHARMACOTHERAPY | [place], [place] | | | | | CLINIC [address] | [address] | | | | | [place], [place] | | | | | | [address] | | | | | | [phone] | | | +--------+ + + + [...] Telephone Encounter - Scott Reyna PharmD - 06/13/2019 3:47 PM PDTFormatting of this no te might be different from the original. HEPATITIS C CLINIC Follow Up Provider: Scott Reyna, Carl Encounter Date: 06/13/2019 Patient: Chaparrita Jack : 1995 CSN: [id number] Referral Information Referring Provider: Tavia Mora Medication to be started: Mavyret Medication Therapy Duration: 8 weeks Hep C indications: B18.2 HCV Genotype: 1a HCV RNA Result and Date: [phone] 03/26/2019 HIV: neg APRI=0.86 ASSESSMENT Reason for Call: Review 4 week labs. Chaparrita Jack is a 23 y.o. female who has been referred to the [facility] by Tavia SARGENT for hepatitis C treatment. Chaparrita has been prescribed Mavyre t for 8 weeks. PLAN 1. Labs were reviewed with Chaparrita. Results are appropriate and plan is to continue Hepatiti s C treatment. 2. Chaparrita denies any missed doses of the Hepatitis C treatment therapy. 3.Chaparrita does not report medication changes. 4. Patient does report adverse drug reactions to hepatitis C medication. 5. Chaparrita does not have any questions at this time. 6. Chaparrita lab schedule is as follows: -2 months: 07/09/19 -SVR12: 10/01/19 Labs to [facility] in [place]. Laboratory Findings @LASTCREAT@ Lab Results Component Value Date ALT 237 (H) 02/05/2018 AST 49 (H) 02/05/2018 BILITOT 0.7 02/05/2018 Lab Results Component Value Date WBC 6.88 02/05/2018 HGB 13.8 02/05/2018 HCT 42 10/26/2015 MCV 83.4 02/05/2018 LABPLAT 177 02/05/2018 PLT 177 07/09/2014 No results found for: TSH, W5SUIXP, THYROIDAB No results found for: INR, PROTIME No results found for this or any previous visit. Lab Results Component Value Date HCV 133,707 11/21/2018 Total time spent on the phone with Chaparrita was 5 minutes with greater than 50% of time spent reviewing medications with patient, counseling, education, and/or coordinating care as outl ined above. Scott Reyna, Carl DATE/TIME: 06/13/2019 15:47 elephone Encounte r - Scott Reyna PharmD - 06/13/2019 2:05 PM PDT1st attempt: no answer left message. 1 month lab check is good. Wanted to make sure she had her last month of med already -2 months: 07/09/19 -SVR12: 10/01/19 Labs to [facility] in [place]. Scott Reyna PharmD 06/13/2019 14:11 documented in this encounter Plan of Treatment Not on filedocumented as of this encounter Visit Diagnoses Not on filedocumented in this encounter"
--- OUTSIDE RECORDS SUMMARY | ~2020-07-16 | XMS | Encounter Summary ---
Demographics + + + | Address | [address] | | | [place] [address] | + + + | Home Phone | | + + + | Preferred Language | Unknown | + + + | Marital Status | Single | + + + | Yarsani Affiliation | Unknown | + + + | Race | White | + + + | Ethnic Group | Not or | + + + Author + + + | Author | [facility] | | | and Obieana | + + + | Organization | [facility] | | [...] Team Providers + +------+ + | Care Development Trainer Name | Role | Phone | + [...] | | | | | | | RI | | | | | | | LAP,DIAGNOST | | | | | | | IC ABDOMEN | | | | | | | LAPAROSCOPY | | | | | | | OPERATIVE | | | +--------+--------+ + + + + Encounter Details +--------+ + + + + | Date | Type | Department | Care Team | Description | +--------+ + + + + | 07/09/ | Anesthesia | [facility] | Jake Damian, | | | 2013 | Event | [facility] | [address] | | | | | [place] [address] | [place] [address] | | | | | [place], [place] | [phone] | | | | | [address] | | | | | | [phone] | Ivan Peraza CRNA | | | | | | Student | | +--------+ + + + + Anesthesia Record + + + + + | Procedure Name | Responsible | Anesthesia Start | Anesthesia Stop Time | | | Anesthesiologist | Time | | + + + + + | DIAGNOSTIC | Jake Damian MD | 07/09/14 1205 | 07/09/14 1341 | | LAPAROSCOPY, Rt | | | | | Salphingectomy (N/A | | | | | Uterus) | | | | + + + + + +----+---+ + + | Da | T | Event | Comment | | te | i | | | | | m | | | | | e | | | +----+---+ + + | 09 | 1 | | | | /1 | 1 | | | | 7/ | 1 | | | | 20 | 5 | | | | 14 | | | | +----+---+ + + | | 1 | An Checkout | Pre-use anesthesia machine/equipment checkout. | | | 1 | | | | | 5 | | | | | 0 | | | +----+---+ + + | | 1 | An Start | Reassessment prior to anesthesia induction/procedure. | | | 2 | | | | | 0 | | | | | 5 | | | +----+---+ + + | | 1 | Preoxygenat | | | | 2 | ed | | | | 1 | | | | | 0 | | | +----+---+ + + | | 1 | An | | | | 2 | Induction | | | | 1 | | | | | 2 | | | +----+---+ + + | | 1 | An | | | | 2 | Intubation | | | | 1 | | | | | 5 | | | +----+---+ + + | | 1 | Antibiotic | | | | 2 | Given | | | | 2 | | | | | 2 | | | +----+---+ + + | | 1 | [place] | | | | 2 | 43-degrees | | | | 2 | | | | | 8 | | | +----+---+ + + | | 1 | Breathing | | | | 3 | Spontaneous | | | | 2 | ly | | | | 2 | | | +----+---+ + + | | 1 | [place] off | | | | 3 | | | | | 2 | | | | | 3 | | | +----+---+ + + | | 1 | Oropharynx | | | | 3 | Suctioned | | | | 3 | | | | | 0 | | | +----+---+ + + | | 1 | AN No | TOF 4/4 with sustained tetanus. | | | 3 | Residual | | | | 3 | NMB | | | | 1 | | | +----+---+ + + | | 1 | Breathing | | | | 3 | Spontaneous | | | | 3 | ly | | | | 1 | | | +----+---+ + + | | 1 | Extubated | | | | 3 | Awake | | | | 3 | | | | | 1 | | | +----+---+ + + | | 1 | An Stop | Patient handed off to recovery nurse. VSS, pt calm and | | | 3 | | comfortable, breathing easy | | | 1 | | | +----+---+ + + +------+ | Meds | +------+ + + + | Name | Total | + + + | midazolam | 2 mg | + + + | fentaNYL (Intravenous) | 250 mcg | + + + | lidocaine 2% | 60 mg | + + + | propofol | 330 mg | + + + | rocuronium | 40 mg | + + + | ondansetron | 4 mg | + + + | dexamethasone | 5 mg | + + + | neostigmine | 4.5 mg | + + + | glycopyrrolate | 0.5 mg | + + + | cefazolin in NS (ANCEF) IVPB 2 g | 2 g | + + + | ketorolac 30 mg/ml | 30 mg | + + + | lactated ringers (LR) infusion | 1,500 mL | + + + + + | Name | + + | N2O Flow Rate (L/Min) | + + | O2 Flow Rate (L/Min) | + + | Insp O2 | + + | Exp N2O | + + | Exp SEV | + + | Air Flow Rate (L/Min) | + + + + | No blood administrations on file. | + + +--------+ + + + | Type | Details | Placement | Removal | +--------+ + + + | Urethr | 07/09/14; indicated due to | 07/09/14 0000 by | 07/09/14 1320 by | | al | specific surgical procedure; | Valerie Virgen RN | Nolberto Stacy, | | Cathet | indwelling double lumen catheter; | | RN | | er | latex; 16; 1; 5; 10; none; | | | | | drainage bag to dependent | | | | | drainage; 07/09/14; 1320 | | | +--------+ + + + | [READ | 07/09/14; 1036; Hematology, Blood | 07/09/14 1036 by | 07/09/14 1545 by | | ONLY] | Bank; 07/09/14; 1545 | Jack Baptiste RN | Tisha Rahman RN | | | | | | | Periph | | | | | eral | | | | | IV - | | | | | Single | | | | | Lumen | | | | | | | | | +--------+ + + + | Airway | Mask Ventilation: EZ; Airway | 07/09/14 1229 by | 07/09/14 1331 by | | | Grade: I; Successful Technique: | | Ivan Peraza CRNA | | | Vince; Laryngoscope Blade Size: | | Student | | | 2; Attempts: 1; Airway Type: | | | | | endotracheal, oral, cuffed, | | | | | disposable; Size: 7; Position: | | | | | Right; Airway Tube Secured At: | | | | | 0.21 m (8.27"); Tube Reference | | | | | Point: teeth, secure and patent; | | | | | Trauma: none; Other Equipment: | | | | | stylette; Placement Check: | | | | | verified by capnography, verified | | | | | by auscultation; Placed By: | | | | | Other (Comment) (Desean Funez | | | | | Karmen); Removal Date: 07/09/14; | | | | | Removal Time: 1331 | | | +--------+ + + + | Read | 07/09/14; 1255; Bilateral; | 07/09/14 1255 by | 10/26/152107 by | | only - | abdomen; 10/26/15; 2107 (Not | Valerie Virgen RN | Alison Gonzales RN | | | present this visit) | | | | Incisi | | | | | on | | | | +--------+ + + + | Read | 07/09/14; 1255; Bilateral; | 07/09/14 1255 by | 10/26/152107 by | | only - | vagina; 10/26/15; 2107 (Not | Valerie Virgen RN | Alison Gonzales RN | | | present this visit) | | | | Incisi | | | | | on | | | | +--------+ + + + documented in this encounter Social History + + + +--------+------+ | [...] + + documented as of this encounter OR Notes Anesthesia Postprocedure Evaluation - Jake Damian MD - 07/09/2014 4:56 PM PDTFormatti ng of this note might be different from the original. ANESTHESIA POSTANESTHESIA EVALUATION Chaparrita Jack 19 y.o. female 1995 [id number] Procedure: Procedure(s):DIAGNOSTIC LAPAROSCOPY, Rt Salphingectomy Filed Vitals: 07/09/14 1415 07/09/14 1420 07/09/14 1450 BP: 107/68 109/65 106/71 Pulse: 59 61 71 Temp: 36.8 C (98.3 F) 36.9 C (98.5 F) 37 C (98.6 F) Resp: 13 16 15 SpO2: 99% 96% 97% Cooperates? Yes Mental Status Performs simple tasks. Respiratory Satisfactory - Airway patent (self maintained). Cardiovascular Satisfactory Blood pressure and heart rate acceptable Temperature Satisfactory Pain Satisfactory N/V Control Satisfactory Hydration Satisfactory No signs of dehydration Complications None apparent Electronically signed by Jake Damian MD 07/09/2014 16:56 [facility] nesthesia Preprocedu re Evaluation - Jake Damian MD - 07/08/2014 7:31 PM PDTFormatting of this note might b e different from the original. ANESTHESIA PREANESTHESIA EVALUATION Chaparrita Jack 19 y.o. female 1995 [id number] Scheduled procedure LAPAROSCOPY OPERATIVE [[id number]] - DIAGNOSTIC LAPAROSCOPY Medical history, anesthesia, medications, allergy histories reviewed. ECG reviewed. Labs reviewed. ROS / Med History Ane Denies history of anesthesia complications Denies family history of anesthesia complications. (-) PONV, difficult intubation. NPO status verified. CV (-) CAD, past OH, CHF, angina. Pulm (+) active smoking. (-) shortness of breath, pneumonia, asthma. Neuro (-) seizures, TIA, CVA. Psych Negative except where noted below. (+) anxiety. Renal Negative except where noted below. GI/Hep (-) reflux/GERD, hiatal hernia. Endo (-) hypothyroidism, hyperthyroidism. (-) Diabetes. Other Negative except where noted below. Cancer Negative except where noted below. Physical Exam Airway MP I, TM >3 FB, Mouth opening >2 FB. Neck: full ROM, extends >30 degrees. Jaw protrusi on normal. Dental Grossly normal except where noted below.; CV cardiovascular normal Rhythm regular. Rate Normal. (-) murmur. Pulm Clear to auscultation bilaterally. (-) wheezing, rhonchi, rales and stridor. Neuro Grossly normal. Anesthesia Plan ASA 2 Type: General. Induction: Intravenous. Potential problems: None anticipated. Monitors: Standard ASA monitors. Consent statement:Anesthetic plan, alternatives, risks and benefits discussed with patient. Risks discussed included (but were not limited to): dental injury, sore throat, pain, drug reaction, nausea, . Consenting person understands and agrees to proceed. GETA. Electronically Signed by: Jake Damian MD ESig date/time: 07/09/2014 11:13 documented in this en counter Plan of Treatment Not on filedocumented as of this encounter Visit Diagnoses Not on filedocumented in this encounter Administered Medications + +--------+ +------+------+------+ | Medication Order | MAR | Action | Dose | Rate | Site | | | Action | Date | | | | + +--------+ +------+------+------+ | cefazolin in NS (ANCEF) IVPB 2 | Given | 07/09/20 | 2 g | | | | g 2 g, Intravenous, Administer | | 14 12:22 | | | | | over 30 Minutes, Prior to | | PM PDT | | | | | Incision, Starting Mon07/09/14 at | | | | | | | 1032, For 1 dose, Give within | | | | | | | one hour prior to surgical | | | | | | | incision., Pre-op | | | | | | + +--------+ +------+------+------+ +---+---+ | | | +---+---+ + +-------+ +------+---+---+ | dexamethasone (DECADRON) 10 | Given | 07/09/20 | 5 mg | | | | mg/mL injection Intravenous, | | 14 12:26 | | | | | PRN, Starting Mon07/09/14 at | | PM PDT | | | | | 1226, Anesthesia Intra-op | | | | | | + +-------+ +------+---+---+ +---+---+ | | | +---+---+ + +-------+ +--------+---+---+ | fentaNYL injection | Given | 07/09/20 | 50 mcg | | | | Intravenous, PRN, Pain, Starting | | 14 1:38 | | | | | 07/09/14 at 1209, Anesthesia | | PM PDT | | | | | Intra-op | | | | | | + +-------+ +--------+---+---+ +-------+ +--------+---+---+ | Given | 07/09/20 | 50 mcg | | | | | 14 12:31 | | | | | | PM PDT | | | | +-------+ +--------+---+---+ | Given | 07/09/20 | 50 mcg | | | | | 14 12:28 | | | | | | PM PDT | | | | +-------+ +--------+---+---+ +---+---+ | | | +---+---+ + +-------+ +--------+---+---+ | glycopyrrolate (FE) | Given | 07/09/20 | 0.4 mg | | | | injection Intravenous, PRN, | | 14 1:20 | | | | | Secretions, Starting Mon07/09/14 | | PM PDT | | | | | at 1255, Anesthesia Intra-op | | | | | | + +-------+ +--------+---+---+ +-------+ +--------+---+---+ | Given | 07/09/20 | 0.1 mg | | | | | 14 12:55 | | | | | | PM PDT | | | | +-------+ +--------+---+---+ +---+---+ | | | +---+---+ + +-------+ +-------+---+---+ | ketorolac (TORADOL) injection | Given | 07/09/20 | 30 mg | | | | Intravenous, PRN, Pain, Starting | | 14 1:26 | | | | | Mon07/09/14 at 1326, Anesthesia | | PM PDT | | | | | Intra-op | | | | | | + +-------+ +-------+---+---+ +---+---+ | | | +---+---+ + +---------+ [...] +---+ +---+ +---+---+ | | | +---+---+ + +-------+ +-------+---+---+ | lidocaine (PF) 2% injection | Given | 07/09/20 | 60 mg | | | | Intravenous, PRN, Starting Mon | | 14 12:12 | | | | | 07/09/14 at 1212, Anesthesia | | PM PDT | | | | | Intra-op | | | | | | + +-------+ +-------+---+---+ +---+---+ | | | +---+---+ + +-------+ +------+---+---+ | midazolam (VERSED) 1 mg/mL | Given | 07/09/20 | 2 mg | | | | injection Intravenous, PRN, | | 14 12:05 | | | | | Anxiety, Starting Mon07/09/14 at | | PM PDT | | | | | 1205, Anesthesia Intra-op | | | | | | + +-------+ +------+---+---+ +---+---+ | | | +---+---+ + +-------+ +--------+---+---+ | neostigmine (PROSTIGMIN) 1 | Given | 07/09/20 | 4.5 mg | | | | mg/mL injection Intravenous, | | 14 1:20 | | | | | PRN, Starting Mon07/09/14 at | | PM PDT | | | | | 1320, Anesthesia Intra-op | | | | | | + +-------+ +--------+---+---+ +---+---+ | | | +---+---+ + +-------+ +------+---+---+ | ondansetron (ZOFRAN) injection | Given | 07/09/20 | 4 mg | | | | Intravenous, PRN, Nausea, | | 14 1:02 | | | | | Vomiting, Starting Mon07/09/14 at | | PM PDT | | | | | 1302, Anesthesia Intra-op | | | | | | + +-------+ +------+---+---+ +---+---+ | | | +---+---+ + +-------+ +-------+---+---+ | propofol (DIPRIVAN) injection | Given | 07/09/20 | 30 mg | | | | Intravenous, PRN, Starting Mon | | 14 1:15 | | | | | 07/09/14 at 1213, Anesthesia | | PM PDT | | | | | Intra-op | | | | | | + +-------+ +-------+---+---+ +-------+ +-------+---+---+ | Given | 07/09/20 | 50 mg | | | | | 14 1:14 | | | | | | PM PDT | | | | +-------+ +-------+---+---+ | Given | 07/09/20 | 50 mg | | | | | 14 1:00 | | | | | | PM PDT | | | | +-------+ +-------+---+---+ +---+---+ | | | +---+---+ + +-------+ +-------+---+---+ | rocuronium (ZEMURON) injection | Given | 07/09/20 | 10 mg | | | | Intravenous, PRN, Ventilator | | 14 12:41 | | | | | Dyssynchrony, Starting Wed | | PM PDT | | | | | 07/09/14 at 1213, Anesthesia | | | | | | | Intra-op | | | | | | + +-------+ +-------+---+---+ +-------+ +-------+---+---+ | Given | 07/09/20 | 30 mg | | | | | 14 12:13 | | | | | | PM PDT | | | | +-------+ +-------+---+---+ +---+---+ | | | +---+---+ documented in this encounter
--- OUTSIDE RECORDS SUMMARY | ~2020-07-16 | XMS | Encounter Summary ---
Demographics + + + | Address | [address] | | | [place] [address] | + + + | Home Phone | | + + + | Preferred Language | Unknown | + + + | Marital Status | Single | + + + | Jewish Affiliation | Unknown | + + + | Race | White | + + + | Ethnic Group | Not or | + + + Author + + + | Author | [facility] | | | and [place] | + + + | Organization | [facility] | | | [...] Team Providers + +------+ + | Care Membership Coordinator Name | Role | Phone | + +------+ + | Ita Lopes | PCP | | + +------+ + Reason for Visit + + + | Reason | Comments | + + + | Psychiatric | | | Evaluation | | + + + Encounter Details +--------+ + + + + | Date | Type | Department | Care Team | Description | +--------+ + + + + | 02/10/ | Emergency | [facility] | La Johnson, | Adjustment disorder, | | 2015 | | [facility] | PA-C [address] | unspecified type | | | | EM[facility]Y [facility]ENTER | [place] [address] | (Primary Dx); | | | | [address] | [phone] | Anxiety | | | | [place], [place] | | | | | | [address] | | | | | | [phone] | | | +--------+ + + + [...] + + + | Blood Pressure | 123/82 | 02/11/2016 12:53 AM | | | | | PDT | | + + + + + | Pulse | 76 | 02/11/2016 12:53 AM | | | | | PDT | | + + + + + | Temperature | 36.6 C (97.9 F) | 02/11/2016 12:53 AM | | | | | PDT | | + + + + + | Respiratory Rate | 16 | 02/11/2016 12:53 AM | | | | | PDT | | + + + + + | Oxygen Saturation | 98% | 02/11/2016 12:53 AM | | | | | PDT | | + + + + + | Inhaled Oxygen | - | - | | | Concentration | | | | + + + + + | Weight | 86.2 kg (190 lb) | 02/11/2016 12:53 AM | | | | | PDT | | + + + + + | Height | 170.2 cm (5' 7.01") | 02/11/2016 12:53 AM | | | | | PDT | | + + + + + | Body Mass Index | 29.75 | 02/11/2016 12:53 AM | | | | | PDT | | + + + + + documented in this encounter Discharge Instructions AttachmentsThe following attachments cannot be sent through Care Everywhere.ADJUSTMENT DISO RDERS, UNDERSTANDING (HONG KONGER)documented in this encounter Medications at Time of [...] documented as of this encounter ED Notes Carleen May, Mental Health Specialist - 02/11/2016 2:42 AM PDTTriage Evaluation/Ris k Assessment Give name, relationship and phone number: Legal Guardian: N/A Power of Sea Foam Kiss Maker: N/A [facility] Professor: N/A County: [place] Accompanied by: self Currently in outpatient treatment: no Appointments: Last: Next: Clinician: Consulted: Phone: Recent Psychiatric Hospitalizations: no Drug/Alcohol Involvement: denies Presently Intoxicated: no Support Available: 1. Person: Phone: Relationship: 2. Person: Phone: Relationship: Narrative/Present Problem: Chaparrita Jack is a 20 y.o. year old female brought to ED by smooth ortiz after making superficial lacerations on her left arm and sending pics to family. Pt isha knighte in boyfriend, also father to pt 3 yo child, cheated on her with her best friend. Pt is tearful and sad because she feels she lost two people she cared about. Pt feels "embarrasse d" by her bx tonight and has no hx of SI attempts or mental health tx. Pt is oriented x4, a lert and denies HI and hallucinations. Pt reports typically eating and sleeping well when n ot distressed. Pt contracts for safety and is requesting dc home with friend from ED. ED provider concurs with plan for pt to dc to friend who will provide support tonight. Current Suicide Risk Suicidality: Denies; earlier cut on arms for attention The patient has means readily available: yes Risk Factors Break up of a relationship, Anger and resentment, Depression and Shame, humiliation, loss o f face Mental Status Exam Appearance: Neat Hygiene: good Eye Contact: good Speech: WNL Affect: Sad Mood: Angry and Depressed Cooperation: Attentive and Cooperative Biological/Vegitative Signs of Depression: Appetite: reduced Weight: has been stable Sleep: Decreased Psychomotor: Unchanged Energy: Normal Insight: Recognizes problem Judgement: Fair Memory - Senior Care: Good Memory - Short Term: Good Concentration: good Thought Content: Appropriate Hallucinations: None Thought Process: circumstantial Level of Consciousness: Alert Orientation: Fully Oriented Risk Assessment Patient danger to self: no Patient danger to others: no Patient gravely disabled: no Information Provided By: patient Risk Analysis After review of all the relevant factors and placing these in the context of all observatio ns and information available at this time, my judgment of the patient's suicide risk is the following: Levell 2 = Moderate Risk Describe: Electronically signed by: Carleen May MENTAL HEALT ESi date/time: 02/11/2016 2:42 [place] PA-C - 02/11/2016 2:31 AM PDT CHIEF [id number] Chief Complaint Patient presents with Psychiatric Evaluation HPI Chaparrita Jack is a 20 y.o. female who presents to the ER with complaints of increased an xiety over the last 24-48 hours as she found out that her boyfriend has recently cheated on her with her best friend and then somehow also contracted herpes. She went to go talk to he r now ex-best friend and got quite agitated and wound up trying to break the door to go talk to her. She initially had some ideations of injuring both her ex-boyfriend and ex-best fri end. She states that his past but BX best friend threatened to get her arrested which would result in a felony and now she is paranoid about that. Patient carries a diagnosis of anxi ety and takes citalopram, lorazepam as needed and as recently been prescribed BuSpar which s he has not started. She currently denies any SI or HI. She is more worried about being in court. There are no other symptoms or complaints at this time. REVIEW OF SYSTEMS A total of 10 systems were reviewed and are negative and/or positive other than what is sta fuad in the HPI. PAST MEDICAL HISTORY Past Medical History Diagnosis Date Back pain Smokes trying to quit Abdominal pain Ectopic recently @ 4 WEEK AGO; no surgery Anxiety HPV in female CURRENT MEDICATIONS Previous Medications BUSPIRONE (BUSPAR) 15 MG TABLET Take 15 mg by mouth Daily (with lunch). Has not started yet, suppose to start later today at Noon CITALOPRAM (CELEXA) 20 MG TABLET Take 20 mg by mouth Daily (with lunch). CLONAZEPAM (KLONOPIN) 1 MG TABLET Take 1 mg by mouth Daily (with lunch). ALLERGIES Allergies Allergen Reactions Miconazole Nitrate Other (See Comments) BURNING AND ITCHING AT SITE SOCIAL HISTORY History Social History Marital Status: Single Spouse Name: N/A Number of Children: N/A Years of Education: N/A Social History Main Topics Smoking status: Current Every Day Smoker -- 0.25 packs/day for 6 years Types: Cigarettes Smokeless tobacco: Never Used Alcohol Use: No Drug Use: No Sexual Activity: Not on file Other Topics Concern Not on file Social History Narrative SURGICAL HISTORY Past Surgical History Procedure Laterality Date Tympanostomy tube placement Laparoscopy 07/09/2014 DIAGNOSTIC LAPAROSCOPY, Rt Salphingectomy; Laterality: N/A; Surgeon: Kian Hubbard; Location: [facility] MAIN OR PHYSICAL EXAM GENERAL Nontoxic or septic appearing, no acute distress VITAL SIGNS Temp: 36.6 C (97.9 F) Pulse: 76 Resp: 16 SpO2: 98 % BP: 123/82 mmHg HEENT--Normocephalic, atraumatic. External ears appear normal. Facies is symmetric. Tongue is midline. Mucous membranes are moist. Oropharynx without exudate or pharyngitis. Uvula midline. No dental abscess. EYES--Eyes equally round and reactive to light. Extraocular muscles are intact no vertical or rotational nystagmus. Conjunctiva nonerythematous. Eyes nonicteric. NECK- Full range of motion no adenopathy. no nuchal rigidity. No central line tenderness. RESPIRATORY--Equal breath sounds. No rhonchi, rales, or wheezing. CV--Regular rate and rhythm. No murmurs. Normal S1, normal S2. No friction rubs apprecia fuad in the noisy the ER. ABDOMINAL--Soft, nontender, no guarding, rebound, or peritoneal signs. Normoactive bowel s ounds. No ecchymosis, bruising, or rash. BACK--No costovertebral angle tenderness. No rash. Nontender. SKIN--Warm and dry. No rash or evidence of infection. NEUROLOGIC-- Speech is fluent. Cranial nerves II through XII grossly intact without focal d eficit. Frozen Food Department Manager strength 5 out of 5. Sensation intact. EXTREMITIES - Frozen Food Department Manager strength equal. No cyanosis, clubbing, or edema. Capillary refill is br isk. Sensation intact. PSYCH- Appropriate affect. Alert and oriented x3. Tearful, anxious, exhausted and quite w orried that she may wind up going to long-term or having a felony on her and not be able to get a job. RADIOLOGY No results found. LABS No results found for this or any previous visit (from the past 10 hour(s)). ED COURSE/MEDICAL DECISION MAKING The patient was seen and examined. I have reviewed and considered the patient's past medica l records. medications provided here in the emergency department. Patient has been taking her home p rescribed meds as directed. PTC was able to evaluate this patient and they were also able t o get hold of a friend who is willing to act as an LRA. Patient can follow-up with her prov ider in the next couple of days. She is encouraged to find different ways to deal with her stressors such as taking a walk, etc. She should return to the emergency department should any of her symptoms acutely worsen. PROVISIONAL DIAGNOSIS Adjustment disorder Anxiety DISPOSITION Patient discharged home in stable and ambulatory condition. La Johnson PA-C 02/11/16 0235 hitKassandra muir RN - 02/11/2016 1:10 AM PDTBed: ED50 Expected date: Expected time: Means of arrival: Comments: Triage documented in this e ncounter Miscellaneous Notes ED Triage Notes - Con Owens RN - 02/11/2016 12:55 AM PDTPt accompanied by Edwin bose after pt had cut her left wrist, superficial lacerations. Pt had sent pictures to friend s/family, and pt was then brought in this evening. Bleeding controlled and dry to L wrist. P t states "I don't have thoughts of harming myself anymore." Denies thoughts of anyone else. Pt appears to have flat affect. 12: 58 AM PDTED Triage Notes - Alison Gonzales RN - 02/11/2016 12:50 AM PDTPt brought in by keven juan. States she has superficial cuts to arm and they are bringing her in as an invol. Pt i s cooperative at present. Electronically signed by: Alison Gonzales RN 02/11/2016 0:50 documented in this enc ounter Plan of Treatment + +------+--------+ + + | Name | Type | Priori | Associated Diagnoses | Date/Time | | | | ty | | | + +------+--------+ + + | ED INFORMATION | SANTANA | Routin | | 02/11/2016 12:51 AM | | EXCHANGE | | e | | PDT | + +------+--------+ + + documented as of this encounter Procedures + +--------+ + + + | Procedure Name | Priori | Date/Time | Associated Diagnosis | Comments | | | ty | | | | + +--------+ + + + | ED INFORMATION | Routin | 02/11/2016 | | | | EXCHANGE | e | 12:51 AM | | | | | | PDT | | | + +--------+ + + + documented in this encounter Visit Diagnoses + + | Diagnosis | + + | Adjustment disorder, unspecified type - Primary | + + | Anxiety Anxiety state, unspecified | + + documented in this encounter
--- OUTSIDE RECORDS SUMMARY | ~2020-07-16 | XMS | Encounter Summary ---
Demographics + + + | Address | [address] | | | [place] [address] | + + + | Home Phone | | + + + | Preferred Language | Unknown | + + + | Marital Status | Single | + + + | Scientologist Affiliation | Unknown | + + + [...] Team Providers + +------+ + | Care Strategic Sourcing Consultant Name | Role | Phone | + +------+ + | Ita Lopes | PCP | | + +------+ + Encounter Details +--------+ + + + + | Date | Type | Department | Care Team | Description | +--------+ + + + + | 07/10/ | Emergency | [facility] | Franklin Yanes MD | Non-intractable | | 2016 | | [facility] | [address] | vomiting with | | | | [facility] | [place] [address] | nausea, vomiting of | | | | [address] | [phone] | unspecified type; | | | | [place], [place] | | Diarrhea; Abdominal | | | | [address] | | cramping | | | | [phone] | | | +--------+ + + + [...] ED Notes Conversion Transaction, Provider Unknown - 07/10/2016 4:45 AM PDTFormatting of this note m ight be different from the original. ED Notes by Daphney Franco RN at 07/10/16444 Author: Daphney Franco RN Service: (none) Author Type: Registered Nurse Filed: 07/10/16444 Date of Service: 07/10/16444 Status: Signed Microfilm Duplicating Unit Supervisor: Daphney Franco RN (Registered Nurse) Apple juice provided to pt for PO challenge. Daphney Franco RN 07/10/16444 Franklin Horne MD - 07/10/2016 4:24 AM PDTFormatting of this note might be different from the origin al. ED Provider Notes by Franklin Yanes MD at 07/10/16423 Author: Franklin Yanes MD Service: (none) Author Type: Physician Filed: 07/10/16 0516 Date of Service: 07/10/16423 Status: Signed Microfilm Duplicating Unit Supervisor: Franklin Yanes MD (Physician) [facility] Department of Emergency Medicine History of Present Illness Patient Identification Chaparrita Jack is a 21 y.o. female. Patient information was obtained from patient. History/Exam limitations: none. Patient presented to the Emergency Department by: Car Chief Complaint Chief Complaint Patient presents with Emesis Emesis since 3pm yesterday. Denies fever. Reports 4/10 epigastric pain with emesis. The patient complains of vomiting and diarrhea. Onset of symptoms was about 12 hours ago, w ith a constant course since that time. The symptoms are described to be moderate to severe severity. The patient also complains of mild abdominal cramping that improves after vomiting or having diarrhea. Pt denies fever. She has been exposed to her daughter and boyfriend wh o have both recently had similar symptoms. Pt denies . Care prior to arrival con sisted of nothing, with no relief. History reviewed. No pertinent past medical history. [...] pertinent family history. Review of Systems Constitutional: No fever ENT: No blindness, no rhinitis, no sore throat Cardiovascular: No chest pain Respiratory: No shortness of breath, cough Gastrointestinal: Positive for N/V and diarrhea Genitourinary: No dysuria, hematuria Musculoskeletal: No acute physical injury. Skin: No laceration or rash Neuro and psych: No head injury, seizure, headache Endocrine/Heme/Lymph: No easy bruising or bleeding. Physical Exam BP 115/71 mmHg | Pulse 95 | Temp(Src) 98.3 F (36.8 C) (Oral) | Resp 18 | Ht 1.702 m (5' 7") | Wt 81 kg (178 lb 9.2 oz) | BMI 27.96 kg/m2 | SpO2 97% | LMP 2016 Vital Sign interpretation: normal Pulse Oximetry interpretation: normal General: Alert, in no apparent distress Eyes: Non-icteric ENT: Normal external exam, mildly dry mucus membranes Neck: Supple Cardiovascular: Warm and well perfused, RRR Respiratory: No respiratory distress Abdomen: Soft, non-distended, non-tender Extremities: YEH Back: Normal ROM Skin: Color normal Warm and dry No rash Neuro: Alert, no AMS No gross motor/sensory deficits Medical Decision Making and Emergency Department Course ED Department Course Pt presents with 12 hours of N/V and diarrhea. No treatment prior to arrival. She has norm al VS and a benign exam. Her exposure to family members with similar symptoms make viral gas troenteritis very likely vs possible food poisoning. She is requesting just oral medication s at this time. Will give zofran followed PO challenge and then reassess. Pt's urine reviewed. UTP is negative. No evidence of infection in UA. Blood likely d/t pt currently menstruating. Pt reassessed. She reports feeling much better. Just some mild abdominal cramps. She is t olerating PO well at this time. Will go ahead and discharge with prescription for zofran OD T. Return precautions discussed with patient. ED Medication Administration from 07/10/2016 0404 to 07/10/2016 0516 Date/Time Order Dose Route Action Action by 07/10/2016422 ondansetron (ZOFRAN) tablet 4 mg 4 mg Oral Given Daphney Franco RN 07/10/2016424 loperamide (IMODIUM) capsule 2 mg 2 mg Oral Given Daphney Franco RN Patient Vitals for the past 24 hrs: BP Temp Temp src Pulse Resp SpO2 Height Weight 07/10/16418 115/71 mmHg 98.3 F (36.8 C) Oral 95 18 97 % 1.702 m (5' 7") 81 kg (178 lb 9.2 oz) ED Medication Administration from 07/10/2016 0404 to 07/10/2016423 Date/Time Order Dose Route Action Action by 07/10/2016422 ondansetron (ZOFRAN) tablet 4 mg 4 mg Oral Given Daphney Franco RN Records Reviewed Nursing notes. Laboratory Evaluation Results Procedure Component Value Ref Range Date/Time Urine microscopic only [[id number]] (Abnormal) Collected: 07/10/16437 Order Status: Completed Updated: 07/10/16500 WBC 0-2 0 - 5 /hpf RBC 11-15 0 - 5 /hpf EPITHELIAL >100 /lpf BACTERIA 1+ (A) NONE SEEN Urinalysis (reflex to microscopic) [[id number]] (Abnormal) Collected: 07/10/16437 Order Status: Completed Specimen Information: Urine from Urine, Clean Catch Updated: 07/10/16500 COLOR UA YELLOW CLARITY CLEAR Specific [place], UA 1.020 1.001 - 1.035 LEUKOCYTE ESTERASE NEGATIVE NEGATIVE NITRITE NEGATIVE NEGATIVE UROBILINOGEN 0.2 <1.1 mg/dL PROTEIN NEGATIVE NEGATIVE mg/dL PH,URINE 5.5 4.6 - 8.0 BLOOD LARGE (A) NEGATIVE KETONES 40 (A) NEGATIVE mg/dL BILIRUBIN NEGATIVE NEGATIVE GLUCOSE NEGATIVE NEGATIVE mg/dL Urine test (LAB) [[id number]] Collected: 07/10/16437 Order Status: Completed Specimen Information: Urine from Urine, Clean Catch Updated: 07/10/161 Preg Test, Ur NEGATIVE NEGATIVE I personally reviewed the lab results and they have been posted to the chart. Pertinent po sitive and negative findings have been addressed appropriately. Radiology and EKG Evaluation Imaging Results None ED Diagnoses Final diagnoses Non-intractable vomiting with nausea, vomiting of unspecified type Diarrhea Abdominal cramping Disposition: ED Disposition Discharge Condition at discharge: Stable Follow-up Information Follow up With Details Comments Contact Info Your primary provider Schedule an appointment as soon as possible for a visit As needed [facility] Emergency Department in [place] If symptoms worsen [address] [facility] [address] Discharge Medications: New Prescriptions ONDANSETRON (ZOFRAN-ODT) 4 MG DISINTEGRATING TABLET Take 1 tablet by mouth every 8 (eig ht) hours as needed for Nausea. Procedures Additional Documentation Procedures Franklin Yanes MD 07/10/16 0516 documente d in this encounter Plan of Treatment Not on filedocumented as of this encounter Procedures + +--------+ + + + | Procedure Name | Priori | Date/Time | Associated Diagnosis | Comments | | | ty | | | | + +--------+ + + + | URINALYSIS WITH | Routin | 07/10/2016 | | Results for this | | MICROSCOPIC IF | e | 4:38 AM | | procedure are in the | | INDICATED | | PDT | | results section. | + +--------+ + + + | URINALYSIS, | Routin | 07/10/2016 | | Results for this | | MICROSCOPIC ONLY | e | 4:38 AM | | procedure are in the | | | | PDT | | results section. | + +--------+ + + + | HCG, URINE, QUAL | Routin | 07/10/2016 | | Results for this | | | e | 4:38 AM | | procedure are in the | | | | PDT | | results section. | + +--------+ + + + documented in this encounter Results , Urine, Qual (07/10/2016 4:38 AM PDT) + + + + + + | Component | Value | Ref Range | Performed | Pathologist | | | | | At | Signature | + + + + + + | Preg Test, | NEGATIVEComment: Testing | | EXTERNAL | | | Ur | performed at [facility], [address] | [address] | | | | [address], | | | | | | [place] [address] | | | | + + + + + + + + | Specimen | + + | Urine specimen | | (specimen) | + + + +---------+ + + | Performing | Address | City/State/Zipcode | Phone Number | | Organization | | | | + +---------+ + + | EXTERNAL LAB | | | | + +---------+ + + Urinalysis, Microscopic Only (07/10/2016 4:38 AM PDT) + + + + + + | Component | Value | Ref Range | Performed | Pathologist | | | | | At | Signature | + + + + + + | WBC, UA | 0-2Comment: Testing | 0 - 5 /hpf | EXTERNAL | | | | performed at [facility], [address] | | [address] | | | | [address], | | | | | | [place] [address] | | | | + + + + + + | RBC, UA | 11-15Comment: Testing | 0 - 5 /hpf | EXTERNAL | | | | performed at [facility], [address] | | [address] | | | | [address] | | | | | | [place] [address] | | | | + + + + + + | Epithelial | >100Comment: Testing | /lpf | EXTERNAL | | | Cells | performed at [facility], [address] | | [address] | | | | [address], | | | | | | [place] [address] | | | | + + + + + + | Bacteria, | 1+ (A)Comment: Testing | | EXTERNAL | | | UA | performed at [facility], [address] | | [address] | | | | [address], | | | | | | [place] [address] | | | | + + + + + + + + | Specimen | + + | | + + + +---------+ + + | Performing | Address | City/State/Zipcode | Phone Number | | Organization | | | | + +---------+ + + | EXTERNAL LAB | | | | + +---------+ + + Urinalysis with Microscopic if Indicated (07/10/2016 4:38 AM PDT) + + + + + + | Component | Value | Ref Range | Performed | Pathologist | | | | | At | Signature | + + + + + + | Color | YELLOWComment: Testing | | EXTERNAL | | | | performed at [facility], [address] | | [address] | | | | [address], | | | | | | [place] [address] | | | | + + + + + + | Clarity, | CLEARComment: Testing | | EXTERNAL | | | Urine | performed at [facility], [address] | | [address] | | | | [address], | | | | | | [place] [address] | | | | + + + + + + | Specific | 1.020Comment: Testing | 1.001 - 1.035 | EXTERNAL | | | [place], | performed at [facility], [address] | | LAB | | | Urine | [address], | | | | | | [place] [address] | | | | + + + + + + | Leukocyte | NEGATIVEComment: Testing | | EXTERNAL | | | Esterase, | performed at [facility], [address] | | [address] | | | [address] | [address], | | | | | | [place] [address] | | | | + + + + + + | Nitrite, | NEGATIVEComment: Testing | | EXTERNAL | | | Urine | performed at [facility], [address] | | [address] | | | | [address], | | | | | | [place] [address] | | | | + + + + + + | Urobilinoge | 0.2Comment: Testing | mg/dL | EXTERNAL | | | n, Urine | performed at [facility], [address] | | [address] | | | | [address], | | | | | | [place] [address] | | | | + + + + + + | Protein, | NEGATIVEComment: Testing | mg/dL | EXTERNAL | | | Urine | performed at [facility], [address] | | [address] | | | | [address], | | | | | | [place] [address] | | | | + + + + + + | pH, Urine | 5.5Comment: Testing | 4.6 - 8.0 | EXTERNAL | | | | performed at [facility], [address] | | LAB | | | | [address], | | | | | | [place] [address] | | | | + + + + + + | Blood, | LARGE (A)Comment: | | EXTERNAL | | | Urine | Testing performed at | | LAB | | | | [facility], [address] [place], | | | | | | [place] [address] | | | | + + + + + + | Ketones | 40 (A)Comment: Testing | mg/dL | EXTERNAL | | | | performed at [facility], [address] | | [address] | | | | [address], | | | | | | [place] [address] | | | | + + + + + + | Bilirubin, | NEGATIVEComment: Testing | | EXTERNAL | | | Urine | performed at [facility], [address] | | [address] | | | | [address], | | | | | | [place] [address] | | | | + + + + + + | Glucose, | NEGATIVEComment: Testing | mg/dL | EXTERNAL | | | Urine | performed at [facility], [address] | | [address] | | | | [address], | | | | | | [place] [address] | | | | + + + [...] + | Diagnosis | + + | Non-intractable vomiting with nausea, vomiting of unspecified type | + + | Diarrhea | + + | Abdominal cramping Abdominal pain, unspecified site | + + documented in this encounter
--- OUTSIDE RECORDS SUMMARY | ~2020-07-16 | XMS | Encounter Summary ---
Demographics + + + | Address | [address] | | | [place] [address] | + + + | Home Phone | | + + + | Preferred Language | Unknown | + + + | Marital Status | Single | + + + | Moravian Affiliation | Unknown | + + + | Race | White | + + + | Ethnic Group | Not or | + + + Author + + + | Author | [facility] | | | and [place] | + + + | Organization | [facility] | | | and [place] | + + + | Address | Unknown | + + + | Phone | Unavailable | + + + Support + + +---------+ + | Name | Relationship | Address | Phone | + + +---------+ + | Jennifer Jack | ECON | Unknown | | + + +---------+ + | Jennfier Jack | ECON | Unknown | | + + +---------+ + Care Team Providers + +------+ + | Care Emergency Communications Officer Name | Role | Phone | + +------+ + | Elva Cruz MD | PCP | | + +------+ + Encounter Details +--------+ + + + + | Date | Type | Department | Care Team | Description | +--------+ + + + + | 05/24/ | Orders Only | [facility] | Scott Reyna W, | Chronic hepatitis C | | 2019 | | MED CTR | PharmD [address] | without hepatic coma | | | | PHARMACOTHERAPY | [place], [place] | (HCC) (Primary Dx) | | | | CLINIC [address] | [address] | | | | | [place], [place] | | | | | | [address] | | | | | | [phone] | | | +--------+ + + + [...]
--- OUTSIDE RECORDS SUMMARY | ~2020-07-16 | XMS | Encounter Summary ---
Demographics + + + | Address | [address] | | | [place] [address] | + + + | Home Phone | | + + + | Preferred Language | Unknown | + + + | Marital Status | Single | + + + | Hinduism Affiliation | Unknown | + + + | Race | White | + + + | Ethnic Group | Not or | + + + Author + + + | Author | [facility] | | | and Obie[place] | + + + | Organization | [facility] | | | [...] Team Providers + +------+ + | Care Gamer Name | Role | Phone | + +------+ + | Elva Cruz MD | PCP | | + +------+ + Reason for Visit Evaluate & Treat (Routine) +--------+--------+ + + + + | Status | Reason | Specialty | Diagnoses / | Referred By | Referred To | | | | | Procedures | Contact | Contact | +--------+--------+ + + + + | Closed | | Infusion | Diagnoses | | Mohl, | | | | Therapy | Chronic | Morgan, | Scott W, | | | | | hepatitis C | Tavia, | PharmD [address] | | | | | without | [employer]LECT[employer]ARCH ENGINEER [address] | | | | | hepatic coma | [address] | [place], | | | | | (HCC) | [address] | [place] [address] | | | | | | [place], | Phone: | | | | | | [place] [address] | [phone] | | | | | | Phone: | Fax: | | | | | | [phone] | [phone] | | | | | | Fax: | | | | | | | [phone] | | +--------+--------+ + + + + Encounter Details +--------+---------+ + + + | Date | Type | Department | Care Team | Description | +--------+---------+ + + + | 05/03/ | Office | [facility] | Morgan, | Chronic hepatitis C | | 2019 | Visit | MED CTR | ROSETTA Squires [address] | without hepatic coma | | | | PHARMACOTHERAPY | [address] | (HCC) | | | | CLINIC [address] | [place] [facility], [place] | | | | | [place], [place] | [address] | | | | | [address] | | | | | | [phone] | Scott Reyna W, | | | | | | PharmD [address] | | | | | | [address] [place], [place] | | | | | | [address] | | | | | | | | +--------+---------+ + + + [...] + + + | Blood Pressure | 114/76 | 05/03/2019 9:37 AM | | | | | PDT | | + + + + + | Pulse | 85 | 05/03/2019 9:37 AM | | | | | PDT | | + + + + + | Temperature | 36.6 C (97.9 F) | 05/03/2019 9:37 AM | | | | | PDT | | + + + + + | Respiratory Rate | - | - | | + + + + + | Oxygen Saturation | 99% | 05/03/2019 9:37 AM | | | | | PDT | | + + + + + | Inhaled Oxygen | - | - | | | Concentration | | | | + + + + + | Weight | - | - | | + + + + + | Height | - | - | | + + + + + | Body Mass Index | - | - | | + + + + + documented in this encounter Patient Instructions Patient Instructions Scott Reyna, Pharm[place] - 05/03/2019 10:00 AM PDTFormatting of this not e might be different from the original. HEPATITIS C AFTER VISIT SUMMARY Pharmacotherapy Clinic [phone] Instructions for Today: 1. You have been prescribed Mavyret three tablets by mouth daily," for 8 weeks. Your medica tion has been sent to [facility]. 2. I will call you once we have confirmation from the pharmacy that the medication has been approved by your insurance company. 3. Please call our clinic as soon as you receive your medication and ask to speak with Isabel mackey. 4. You will be scheduled to have blood work done based on your start date. Thus it is very important you do not start taking your medication without calling the clinic first. 5. Please notify us of any medication changes including prescription medications, over-the- counter medications, herbal/naturopathic remedies, or supplements. 6. Please notify our clinic right away if you need a medication for heartburn because some of these medications will interact. 7. It is important that you remain compliant with your medication and do not miss any doses . Please call our clinic right away if you miss a dose. If you miss doses of your medication it may become less effective,may not cure Hepatitis C, and your insurance may stop covering the medication.The pill box provided in clinic today will help you keep track of your daily dose. 8. Avoid alcohol use as this can harm your liver. Use marijuana with caution as it is uncle ar if using it can increase your risk of cirrhosis. 9. Our clinic is open Monday through Monday from 8:00am until 4:30pm. We are NOT an emergen cy clinic and do not have an director of strategic communications number. If you are experiencing a life-threatening tammy gency please call 911 or go to the nearest emergency room. If you are not experiencing a lif e-threatening emergency and call after business hours please leave a message and someone suzy l return your call the next business day. 10. Avoid over the counter NSAIDs (such as ibuprofen/Advil/Motrin, naproxen/Aleve) or Aspir in use as it can worsen your liver and kidney function and increase your risk of stomach/int estinal bleeding. Hepatitis C: Know the Facts Many people don t know the facts about hepatitis C. You may be concerned about things you ve heard. Read on to learn what s true about hepatitis C virus (HCV) infection and what s not. Facts about HCV infection: You can still have sex. Hepatitis C can be spread through sex, but this is uncommon. You r partner is safest if you use a latex condom correctly every time you have sex. If you re in a committed relationship, you may not need to change your habits. Talk it over with your partner and do what feels right for both of you. The risk of Hepatitis C being spread throu gh sex increases with multiple sex partners, sex during menses, sex when coinfected with HIV , unprotected anal intercourse, use of recreational drugs during sex, sex with STDs, group s ex, blood exposure during sex, and shared sex toys. Your family members are safe. Hepatitis C can only be spread through contact with infect ed blood. Touching, kissing, sneezing, and sharing food are all safe, as long as there is no blood exposure. But sharing anything that may have blood on it, like a toothbrush, needles, sharps,or razors, is not. Protect yourself and others by avoiding other people s blood. If you are bleeding, try to take care of the wound yourself. Anyone who helps you should wear latex gloves. Use blea ch to clean up any spilled blood. Cover open cuts or sores with a bandage so others will not be exposed to your blood. Most people with hepatitis C don t of it. Avoiding alcohol, losing weight,and ta jessica other steps to protect your liver greatly reduces your chances of having life-threateni ng liver problems. If you are a woman, you can still become . Clbjnr-tg-[id number] HCV transmission occu rs in approximately 4% of HCV-infected women. Infants born to HCV-infected mothers should have follow-up for evaluation of possible HCV infection. If you are a woman, you can still breastfeed. If you are being treated for hepatitis C, or if your nipples are cracked or bleeding, you should not breastfeed. Otherwise, breastfeed ing with hepatitis C is safe. There is no vaccine for HCV. People who have been cured can get the disease again. It is important that you practice prevention strategies to avoid ongoing risk of exposure. You should avoid donating blood, tissue, or semen to prevent spreading Hepatitis C to ot hers. Avoid new use of injection drugs and remain abstinent from reusing. If you cannot abstai n from injection drugs use new, sterile needles and syringes each time you inject, do not re use needles or syringes, do not share needles or syringes, safely dispose of needles and syr inges, do not reuse or share other injection materials such as cookers, cottons, water, or d rug, and receive substance use treatment and support for safe injection practices. [id number] [employer]. [address] [place] [address], [place] [address]. All [facility] reserved. This information is not intended as a substitute for professional medical care. Always follow your healthcare professional's instructions Tylenol Containing Products *AVOID USE OR LIMIT TO 2,000 mg PER DAY FROM ALL SOURCES* Acehin Coldrine Midol PM Acetal Comtrex Midol Teen Acetaminophen Suspension Contac Day & Night Allergy/SInus Migrainex Acetaminophen Uniserts Suppository Contac Day & Night Colds and Flu Nyquil Actamin Coricidin Ornex Actifed Plus Coricidin D Pamprin Actifed Sinus Daytime/Nightime Coricidin Sinus Headache Percogesic [place] LiquiGel Dristan Cold Multi-Symptom Formula Robitussin Night Relief Allerest Headache Strength Drixoral Cold and Flu Sine-Aid Allergy Sinus Comtrex Drixoral Cough and Sore Throat SInarest Aminofen Dynafed EX Sinutab Anacin Aspirin Free Dyspel [place] AF Aspirin-Free Exceeding Excedrin ES [employer]'s Cold Tablet for Children Aspirin-Free Pain Relief Excedrin PM Sudafed Cold and Cough Aspirin-Free Sue Select Headache Femcaps Sudafed Severe Cold Aspirin-Free Sue Head and Cold Feverall Adult Strength Tapanol Aspirin-Free Sue Select Allergy-Sinus Feverall Jr. Tempra Bromo-Selzer Legatrin PM Triaminic Sore Throat Children's Cepacol Liquiprin for Children Tylenol and Tylenol Preparations Children's Dynafed Mapap Valorin Children's Tylenol Cold Plus Cough Midol Menstrual Regular Strength Multisymptom XS Hangove r Relief Acetaminophen Over-the counter medications containing acetaminophen (a common brand is Tylenol) should be avoided in patients with liver damage. Some prescription pain medications such as Dobbins (hydrocodone with acetaminophen) and Pe rcocet (oxycodone with acetaminophen) contain Tylenol. It is important to always check with your health care provider before starting any prescribed pain medications. There are many brands of medications that may contain acetaminophen. This is not a compl ete list. Often product ingredients change with time so it is important to always check with your health care provider before purchasing any over- the-counter (non-prescribed) medicine . Natural Medicine Use Discuss with your pharmacist or doctor before starting any new natural medications or benítez pplements, home remedies, or homeopathic medications. When used together your hepatitis C me dication may not work as well. Do not take [place]'s wort while being treated with some hepatitis C medications. Please a sk your pharmacist before taking. documented in this encounter Progress Notes Scott Reyna PharmD - 05/03/2019 10:00 AM PDT Pharmacotherapy Infusion Clinic New Patient Visit: Hepatitis C Provider: Scott Reyna PharmD Visit Date: 05/03/2019 Patient: Chaparrita Jack : 1995 CSN: [id number] Chaparrita Jack is a 23 y.o. White non- female who has been referred to the [facility] by ROSETTA Rojas for Hepatitis C medication treatment. ASSESSMENT Chaparrita has no prior history of Hepatitis C treatment. Patient genotype is 1a. Chaparrita's APRI =0.86, and her ICD-10 diagnosis code is B18.2. Chaparrita does not have a history of depression, anxiety, emotional liability, irritability or insomnia. Patient is currently under the care of Tavia Mora. There have been no hospital admissions for ascites, hepatic encephal opathy, jaundice, or gastrointestinal bleed. Chaparrita does not have untreated hepatocellular c arcinoma and does not have decompensated cirrhosis (Nnmba-Crgltiem-Kauc class B or C, typic ally with ascites, encephalopathy, coagulopathy, or hyperbilirubinemia). Current s tatus was reviewed and patient reported she cannot become due to birthcontrol impla nt. (Nexplanon) Chaparrita informed me that Hepatitis C was originally diagnosed at the start of 2018 due to hi story of IV drug use. This risk is no longer a contributing factor to future contamination w ith the virus. Medications were reviewed for drug interactions. No significant interactions were identifie d. CAGE questionnaire reveals Chaparrita has no indication of having alcohol problems. Last use of alcohol: 2 years ago Last use of marijuana: none Last use of illicit drugs: 2.5 years ago. Patient has [employer] insurance which prefers Mavyret for 8 weeks for genotype 1A who is non-cir rhotic. Plan Hepatitis C: 1. Initiate treatment with Mavyret 100mg/40mg take three tablets by mouth daily with food f or 8 weeks. Patient prefers to use [place] and an electronic prescription has been sent. Arturo weber has been advised that we will call her once insurance coverage of the medication has been confirmed. 2. Exposure of Hepatitis C occurred greater than 6 months ago and does not require retestin g for HCV RNA. 3. Chaparrita does not have coinfection with HIV. 4. Chaparrita does not have immunity to Hepatitis B. Education was provided regarding [facility] risk of accelerated hepatic fibrosis and liver failure with Hepatitis A/B coinfection 5..Chaparrita is core antibody negative and surface antigen negative for Hepatitis B; therefore further monitoring for hepatitis B infection is unnecessary at this time. 6. Patient does not currently consume alcohol. Risks of further liver toxicity from consumi ng alcohol, even moderate amounts (50 g/day or more), have been discussed and patient agrees to abstain from drinking alcohol during Hepatitis C treatment. 7. Patient is not currently on any hepatotoxic medications. Chaparrita is agreeable to calling us prior to starting any new prescription or nens-yrt-vxrcgzv medications, herbals, or suppl ements. 8.. Chaparrita rarely uses acetaminophen-containing products. Advised abstaining from use of th katherin products and provided with a list of OTC products that contain acetaminophen. Chaparrita ag angela to comply with this recommendation or to avoid taking more than 2,000 mg (2 g) per day from all sources if abstinence cannot be achieved. 9. Chaparrita has been counseled to report any medications used for heartburn such as PPIs or H-2 blockers. 10. Chaparrita has been counseled to avoid NSAIDS and ASA containing products to prevent worse bran of portal HTN and GI bleeding. Disease state and medication education was provided to Chaparrita including avoiding donation o f blood, tissue or semen, never sharing razors, toothbrushes, nail clippers or other hygiene products that could be contaminated with blood to reduce the transmission of Hepatitis C to other individuals, the low risk of transmitting HCV sexually to their monogamous sex partne r, sharing needles and equipment used to prepare illicit drugs is associated with increased risk or transmitting and yi HCV, and that transmission of HCV to others in the [facility] is rare. Chaparrita has been counseled that reinfection with HCV is possible and preventio n strategies should be used veneer sorter if ongoing risk exists. Chaparrita has been counseled that the risk of transmitting HCV sexually to their partner increases with multiple sex partners , sex during menses, those co-infected with HIV, unprotected anal intercourse, use of recrea tional drugs during sex, sex with STDs, group sex, blood exposure and shared sex toys. Subjective/Objective Reason for Visit: Initiation of Hepatitis C medication treatment. Hepatitis C was diagnosed prior to referral to our clinic and confirmed with a positive HCV RNA test and positive anti-HCV antibody test. Patient does not have a history of liver brunner splant. 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 Patient denies dark urine, jaundice, flu-like symptoms, pale stool, nausea, abdominal pain, dyspepsia, fatigue, arthralgia, neuropathy, nephropathy, glomerulonephritis, livedo reticul shaw, lichen planus, cold agglutinin disease, paresthesia, myalgia, pruritus, sicca syndrome , spider nevi, distended abdominal veins, Donald's nails, palmar erythema, gynecomastia, yves pheral edema and ascites. LABORATORY FINDINGS Lab Results Component Value Date [...] Ref Range Status 11/21/2018 Non Reactive Final Vaccine history: There is no immunization history on file for this patient. Vitals: BP 114/76 | Pulse 85 | Temp 36.6 C (97.9 F) (Oral) | SpO2 99% Medications: Outpatient Medications Etonogestrel (NEXPLANON SC) (Taking) Inject under the skin. ferrous sulfate (IRON) 325 (65 Fe) MG TABS take 1 tablet by mouth every 12 hours ibuprofen (ADVIL, MOTRIN) 200 mg tablet (Taking) Take 200 mg by mouth every 6 hours as ne eded for Pain or Headaches. I spent 30 minutes face to face with the patient, with over 50% of time spent in education of Chaparrita's medications, the risks and benefits of proceeding as above, and answering questi ons regarding treatment and outcomes. Scott Reyna PharmD DATE/TIME: 05/03/2019 10:41 documented in this encounter Plan of Treatment Not on filedocumented as of this encounter Procedures + +--------+ + + + | Procedure Name | Priori | Date/Time | Associated Diagnosis | Comments | | | ty | | | | + +--------+ + + + | LABS - EXTERNAL SCAN | | 10/04/2019 | | Results for this | | | | 12:00 AM | | procedure are in the | | | | PST | | results section. | + +--------+ + + + | LABS - EXTERNAL SCAN | | 07/12/2019 | | Results for this | | | | 12:00 AM | | procedure are in the | | | | PDT | | results section. | + +--------+ + + + | LABS - EXTERNAL SCAN | | 06/11/2019 | | Results for this | | | | 12:00 AM | | procedure are in the | | | | PDT | | results section. | + +--------+ + + + | LABS - EXTERNAL SCAN | | 05/28/2019 | | Results for this | | | | 12:00 AM | | procedure are in the | | | | PDT | | results section. | + +--------+ + + + documented in this encounter Results LABS - EXTERNAL SCAN (10/04/2019 12:00 AM PST) + + + | Narrative | Performed At | + + + | Ordered by an | | | unspecified provider. | | + + + LABS - EXTERNAL SCAN (07/12/2019 12:00 AM PDT) + + + | Narrative | Performed At | + + + | Ordered by an | | | unspecified provider. | | + + + LABS - EXTERNAL SCAN (06/11/2019 12:00 AM PDT) + + + | Narrative | Performed At | + + + | Ordered by an | | | unspecified provider. | | + + + LABS - EXTERNAL SCAN (05/28/2019 12:00 AM PDT) + + + | Narrative | Performed At | + + + | Ordered by an | | | unspecified provider. | | + + + documented in this encounter Visit Diagnoses + + | Diagnosis | + + | Chronic hepatitis C without hepatic coma (HCC) | + + documented in this encounter
--- OUTSIDE RECORDS SUMMARY | ~2020-07-16 | XMS | Encounter Summary ---
Demographics + + + | Address | [address] | | | [place] [address] | + + + | Home Phone | | + + + | Preferred Language | Unknown | + + + | Marital Status | Single | + + + | Spiritism Affiliation | Unknown | + + + | Race | White | + + + | Ethnic Group | Not or | + + + Author + + + | Author | [facility] | | | and Obie[place] | + + + | Organization | [facility] | | [...] Team Providers + +------+ + | Care Astronaut Mission Specialist Name | Role | Phone | + +------+ + | Elva Cruz MD | PCP | | + +------+ + Reason for Referral Evaluate & Treat (Routine) +--------+--------+ + + + + | Status | Reason | Specialty | Diagnoses / | Referred By | Referred To | | | | | Procedures | Contact | Contact | +--------+--------+ + + + + | Closed | | Infusion | Diagnoses | | Mohl, | | | | Therapy | Chronic | [place], | Scott W, | | | | | hepatitis C | Tavia, | PharmD [address] | | | | | without | ADMINISTRATIVE TECH [address] | | | | | hepatic coma | [address] | [place], | | | | | (HCC) | [address] | [place] [address] | | | | | | [place], | Phone: | | | | | | [place] [address] | [phone] | | | | | | Phone: | Fax: | | | | | | [phone] | [phone] | | | | | | Fax: | | | | | | | [phone] | | +--------+--------+ + + + + Reason for Visit +---------+--------+ + | Reason | Onset | Comments | | | Date | | +---------+--------+ + | Results | 04/23/ | | | | 2019 | | +---------+--------+ + Encounter Details +--------+ + + + + | Date | Type | Department | Care Team | Description | +--------+ + + + + | 04/23/ | Telephone | [facility] | [facility], | Results | | 2019 | | GASTROENTEROLOGY | ROSETTA Squires [address] | | | | | [address] [place] | [address] | | | | | [address] [place], [place] | [place], [place] | | | | | [address] | [address] | | | | | [phone] | | | +--------+ + + + [...] Telephone Encounter - Vidhya Hartmann CMA - 04/29/2019 8:49 AM PDTSpoke to patient, le t her know that ultrasound is normal. Labs are normal except high liver enzymes. We are refe rring her to GI pharmacist for treatment of HCV. Patient said she has been freaking out for days trying to get these results. She thought she was in liver failure. Assured her that srinath jose alfredo is ok . el ephone Encounter - Brenda Alcala - 04/24/2019 5:02 PM PDTMother called in saying that smooth turner is freaking out and having anxiety attacks over getting the results from her labs and US; I let her know that I have taken messages and let our clinical staff know she has ortiz d but unfortunelty I can't control when they will receive a phone call back. She understood and just wanted to know that someone would call her daughter as soon as possible. Electronic ally signed by Brenda Alcala at 04/24/2019 5:04 PM PDTTelephone Encounter - Lori Alcala son Francheska - 04/24/2019 3:41 PM PDTPatient called in very anxious about her results. I let her k now that Jyoti was out and Sharlene had patient's this Am and in meetings this afternoon, she understands but is just very anxious. I told her I would relay the message again [facility]. elephone Encounter - Padmini Moran - 04/24/2019 8:32 AM PDTPatient returned phone call to Tavia Mora' s MA, Jyoti. I informed patient that Jyoti was currently not in clinic but a message would b e left for the clinical staff to return her call. Please advise and call her back at [phone]. elephone Encounter - Vidhya Hartmann CMA - 04/23/2019 2:29 PM PDTLeft message with male answering the phon e for patient to return call for result. (patient labs look good except for ast and alt are elevated. She does have chronic HCV . The ultrasound Is normal.Rosalie is referring her to [facility] minesh Reyna for treatment) will explain when she returns call. documented in this encounter Plan of Treatment + + +--------+ + + | Name | Type | Priori | Associated Diagnoses | Order Schedule | | | | ty | | | + + +--------+ + + | * [facility] | Outpatient | Routin | Chronic hepatitis | Ordered: 04/23/2019 | | PharmD - AMB | Referral | e | C without hepatic | | | Referral | | | coma (HCC) | | + + +--------+ + + documented as of this encounter Visit Diagnoses + + | Diagnosis | + + | Chronic hepatitis C without hepatic coma (HCC) - Primary | + + documented in this encounter"
--- OUTSIDE RECORDS SUMMARY | ~2020-07-16 | XMS | Encounter Summary ---
Demographics + + + | Address | [address] | | | [place] [address] | + + + | Home Phone [...] Author + + + | Author | [facility] | | | and Obieana | + + + | Organization | [facility] | | | [...] Team Providers + +------+ + | Care Dairy Nutrition Consultant Name | Role | Phone | [...] | | | | | | | [place] | | | | | | | [...] + + + + | 07/09/ | Hospital | [facility] | Tanika Vidales, | | | 2014 | Encounter | [facility] | [address] | | | | | [place] [address] | [address] [place], | | | | | [place] | [place] [address] | | | | | [address] | [phone] | | | | | [phone] | | | +--------+ + + + [...] activity causes pain, stop. Don t drive [id number]. You may ride in a car for [...] pat dry. Check your temperature every day [id number](s) after your surgery. Take your medication exactly [...] you have any of the following: Fever qbeoc422.5F (38.6C) or chills Bright red vaginal bleeding or afoul-smellingdischarge Vaginal bleeding that soaks more than onesanitary pad per hour Trouble urinating or burning sensationwhen you urinate Severe abdominal pain or bloating Redness, swelling, or drainage at your incision site Shortness of breath [phone] [facility], [address] [place] [address], [place] [address]. All rights reserve d. This information is [...] may interact with prescription medicines or other qben-hgf-kyromev (OTC) drugs. The FDA recommends reading OTC medication labels careful ly to clearly understand the list of active ingredients, directions, and any precautions to help avoid taking too muchacetaminophen. If you have questions, ask your pharmacist or [facility] care provider. Managing Nausea Some people [...] or skin changes (rash, itching, or hives). 2052-1135 [facility], [address] [place] [address]. All rights reserve d. This information is [...] documented as of this encounter H&P Notes [facility] KALEE [facility] - 07/11/2014 12:00 AM PDT 14 10:08 [facility] - 07/11/2014 12:00 AM PDT Tanika Johnston [...] 12:02 documented in this encounter Procedure Notes [facility] SCAN [facility] - 07/11/2014 12:00 AM PDT 14 10:08 [...] they must be serologically cross matched at [facility] then shipped to hospital. Patricia Cordon RN [...] Notes Plan of Care - ONBASE SCAN [facility] - 07/11/2014 12:00 AM PDT iscellaneous - ONBASE SCAN [facility] - 07/11/2014 12:00 AM PDTElec tronically signed by Lynn Hoffman at 07/16/2014 10:08 AM PDTMiscellaneous - ONBASE SCAN [facility] - 07/11/2014 12:00 AM PDT p Note - Tanika Vidales MD - 07/09/2014 1:27 PM PDT Operative Note Pre-operative Diagnosis: 1. Ectopic Post-operative Diagnosis: same as above including Procedure performed: Procedure(s): LAPAROSCOPY OPERATIVE , right salpingooophorectomy Surgeon: Tanika Vidales M.D. Associate Professor Of Geology: Jun Palacios M.D. Anesthesia: General Findings: 1. [...] MD - 07/09/2014 1:22 P M PDT [facility]'[address] [address] OPERATIVE REPORT TANIKA VIDALES MD Patient: CRISPIN WHALEY Admitting: TANIKA VIDALES MR #: [id number] LOC: PT TYPE: Adm Date: 07/09/2014 : [...] of hemop eritoneum. SURGEON: Tanika Vidales MD CLAIM PROFESSIONAL: Jun Palacios MD COMPLICATIONS: None apparent. ESTIMATED [...] the recovery room in stable condition. TANIKA VIDALES MD Dictated by TANIKA VIDALES MD 07/09/2014 13:22:36 Transcribed on 07/09/2014 14:04:49 by [facility] job# [id number] Confirmation #: [id number] cc: KYRA LOPES iscellaneous - ONBASE SCAN [facility] - 07/08/2014 12:00 AM PDT iscellaneous - ONBASE SCAN [facility] - 07/08/2014 12:00 AM PDTElect ronically signed [...] + + | SURGICAL PATHOLOGY REPORT | [facility] | | Date Taken: 07/09/2014 Date Received: | [facility] | | 07/09/2014 Completed: 07/10/2014 Physician: TANIKA VIDALES Copy to: [facility] | | JUN PALACIOS DIAGNOSIS: Right salpingectomy: | LABORATORY | | 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 0 Dewayne Adames M.D. | | | Electronic signature GROSS DESCRIPTION: Received in formalin | | | labeled "Guero, right salpingectomy" consists of a 6.0 x 3.2 x 3.0 cm | | | epnny-pink to purple hemorrhagic smooth to shaggy portion [...] | | | parts are grossly identified. Senior Speech Pathologist sections are | | | submitted in cassettes "[id number]". () MICROSCOPIC DESCRIPTION: | | | Histologic sections of all submitted blocks are examined by light | | | microscopy. These findings, together with the gross examination, | | | support the pathologic diagnosis. A: [id number] Testing | | | performed at: [facility] | | | Jorge Mccord M.D., Director [address] [place] [address] [address] | | | [place] [address] | | + + + + + + + + | Performing | Address | City/State/Zipcode | Phone Number | | Organization | | | | + + + + + | [facility] | [address] | [place] [address] | | | [facility] | | | | | LABORATORY | [...] + + | [facility] | [address] | [place], [place] | [phone] | | [facility] | | [address] | | | LABORATORY | | | [...] | + + + + + | [facility] | [address] | [place] [address] | | | [facility] | | | | | LABORATORY | [...] | | | | | | LAB [place] | | | | | | [facility] | | | | | | [facility] | | | | | | [facility] | | | | | | [facility] | | + + + + + + | Rh Type | Positive | | REFERENCE | | | | | | LAB [place] | | | | | | [facility] | | | | | | [facility] | | | | | | [facility] | | | | | | [facility] | | + + + + + + | Antibody | NegativeComment: Patient | | REFERENCE | | | Screen | is remote crossmatch | | LAB [place] | | | | eligible | | [...] Date: | REFERENCE LAB | | | [place] | | | [facility] | | | [facility] | + + + + + + + + | Performing | Address | City/State/Zipcode | Phone Number | | Organization | | | | + + + + + | [facility] | [address] | [place] [address] | [phone] | | [place] | | | | | [facility] [...] + + | [facility] | [address] | [place] [address] | | | [facility] | | | | | LABORATORY | | | | + + + + + documented in this encounter Visit Diagnoses Not on filedocumented in this encounter Administered Medications + +--------+ +--------+------+------+ | Medication Order | MAR | Action | Dose | Rate | Site | | | Action | Date | | | | + +--------+ +--------+------+------+ | fentaNYL injection 25-50 mcg | Given [...] | | | | | + +--------+ +--------+------+------+ +-------+ +--------+---+---+ | Given | 07/09/20 | [...] | | | hrs. If ineffective use Royal | | | | | | | 10/ if ordered. If not | | | [...]
--- OUTSIDE RECORDS SUMMARY | ~2020-07-16 | XMS | Clinical Summary ---
Demographics + + + | Address | [address] | | | [place] [address] | + + + | Home Phone | | + + + | Preferred Language | Unknown | + + + | Marital Status | Single | + + + | Temple Affiliation | Unknown | + + + | Race | White | + + + | Ethnic Group | Not or | + + + Author + + + | Author | [facility] | | | and Obieana | + + + | Organization | [facility] | | [...] Team Providers + +------+ + | Care Technology Lab Teacher Name | Role | Phone | + +------+ + | Elva Cruz MD | PCP | | + +------+ + Allergies + + + + + + | Active Allergy | Reactions | Severity | Noted | Comments | | | | | Date | | + + + + + + | Miconazole Nitrate | Other (See Comments) | Medium | 07/08/20 | BURNING AND | | | | | 14 | ITCHING AT SITE | + + + + + + Medications + + + +---------+------+------+-------+ | Medication | Sig | Dispensed | Refills | Star | End | Statu | | | | | | t | Date | s | | | | | | Date | | | + + + +---------+------+------+-------+ | ferrous sulfate | take 1 tablet by | | 0 | /2 | | Activ | | (IRON) 325 (65 Fe) | mouth every 12 hours | | | 02/09 | | e | | MG TABS | | | | 19 | | | + + + +---------+------+------+-------+ | Etonogestrel | Inject under the | | 0 | | | Activ | | (NEXPLANON SC) | skin. | | | | | e | + + + +---------+------+------+-------+ | ibuprofen (ADVIL, | Take 200 mg by mouth | | 0 | | | Activ | | MOTRIN) 200 mg | every 6 hours as | | | | | e | | tablet | needed for Pain or | | | | | | | | Headaches. | | | | | | + + + +---------+------+------+-------+ Active Problems + + + | Problem | Noted Date | + + + | History of hepatitis C | 10/11/2019 | + + + + + | Overview: Patient completed 8 weeks of Mavyret therapy. | | SVR12 drawn on 10/04/19 showed HCV not detected and patient is | | considered cured.Scott Reyna, Carl 10/11/2019 1:21 PM | + + Immunizations + + + + | Name | Administration Dates | Next Due | + + + + | DTAP, 5 DOSE (PED) | 07/05/1999 | | + + + + | DTP (PED) | 03/18/1997, 04/11/1996, 02/08/1996, | | | | 1995 | | + + + + | HEP A, 2 DOSE | 11/01/2007, 06/20/2005 | | | (PED/ADOL) | | | + + + + | HIB (PRP-T), 4 DOSE | 1995 | | | (PED) | | | + + + + | HIB HBOC CONJUGATE, | 03/18/1997, 04/11/1996, 02/08/1996, | | | 4 DOSE (PED) | 1995 | | + + + + | HPV, QUADRIVALENT, 3 | 12/25/2008, 03/10/2008, 11/01/2007 | | | DOSE (ADOL/ADULT) | | | + + + + | Hep B (PED/ADOL) 3 | 06/20/2005, 05/23/1996, 04/11/1996, | | | DOSE | 1995 | | + + + + | INFLUENZA PF 18 Y OR | 07/25/2016, 08/29/2014, 09/19/2011 | | | >,QUADRIVALENT | | | | RECOMBINANT | | | + + + + | INFLUENZA PF | 08/25/2016, 10/20/2015 | | | QUAD(PED/ADOL/ADULT) | | | | ,PSKT or VIAL | | | + + + + | IPV, 4 DOSE | 07/05/1999 | | | (PED/ADULT) | | | + + + + | MENINGOCOCCAL | 05/26/2014, 11/01/2007 | | | CONJUGATE,MENACTRA | | | | (PED/ADOL/ADULT) | | | + + + + | MMR, 2 DOSE | 07/06/2001, 07/25/1996 | | | (PED/ADULT) | | | + + + + | POLIOVIRUS,OPV | 04/11/1996, 02/08/1996, 1995 | | | (LIVE) | | | + + + + | TD PF (2 LF TETANUS) | 06/20/2005 | | | (ADOL/ADULT) | | | + + + + | TDAP, (ADOL/ADULT) | 06/28/2007 | | + + + + Family History + + + + + | Medical History | Relation | Name | Comments | + + + + + | No known problems | Brother | | | + + + + + | Cancer | Mother | | Ovarian | + + + + + | Other (see comment) | Other | grandfat | Leukemia | | | | her | | + + + + + | No known problems | Sister | | | + + + + + + + +--------+ + | Relation | Name | Status | Comments | + + +--------+ + | Brother | | Alive | | + + +--------+ + | Father | | Other | | + + +--------+ + | Mother | | Alive | | + + +--------+ + | Other | grandfath | Alive | | | | er | | | + + +--------+ + | Sister | | Alive | | + + +--------+ + Social History + + + +--------+ [...] on file | | + + + Last Filed Vital Signs + + + [...] Height | 170.2 cm (5' 7") | 05/18/2018 4:01 PM | | | | | PDT | | + + + + + | Body Mass Index | 27.04 | 05/18/2018 4:01 PM | | | | | PDT | | + + + + + Plan of Treatment + + + + + | Health Maintenance | Due Date | Last | Comments | | | | Done | | + + + + + | Medication | | | | | Management | 5 | | | + + + + + | Cervical Cancer | | | | | Screening (Pap) | 6 | | | + + + + + | Vaccine: | | 06/28/20 | | | Dtap/Tdap/Td (7 - | 7 | 07, | | | Td) | | 06/20/20 | | | | | 05, | | | | | 07/05/19 | | | | | 99, | | | | | Addition | | | | | al | | | | | history | | | | | exists | | + + + + + | Med Mgmt: BUN | | 12/04/19 | | | | 0 | 19, | | | | | 12/04/19 | | | | | 19, | | | | | 02/06/20 | | | | | 18 | | + + + + + | Med Mgmt: Cr | | 12/04/19 | | | | 0 | 19, | | | | | 12/04/19 | | | | | 19, | | | | | 02/06/20 | | | | | 18 | | + + + + + | Vaccine: Influenza | | 08/25/20 | | | (#1) | 0 | 16, | | | | | 07/25/20 | | | | | 16, | | | | | 10/20/20 | | | | | 15, | | | | | Addition | | | | | al | | | | | history | | | | | exists | | + + + + + | Vaccine: HPV | Completed | 12/26/19 | | | | | 09, | | | | | 03/10/20 | | | | | 08, | | | | | 11/01/19 | | | | | 08 | | + + + + + | Hepatitis C | Completed | 09/27/20 | | | Screening | | 19, | | | | | 07/05/20 | | | | | 19, | | | | | 06/07/20 | | | | | 19, | | | | | Addition | | | | | al | | | | | history | | | | | exists | | + + + + + Results Not on filefrom Last 3 Months Insurance + +--------+ +--------+ +---------+--------+ | Payer | Benefi | Subscriber | Effect | Phone | Address | Type | | | t Plan | ID | dillon | | | | | | / | | Dates | | | | | | Group | | | | | | + +--------+ +--------+ +---------+--------+ | [employer] | [employer] | [id number] | | [phone] | | Medica | | MEDICAID HMO | HEALTH | | 019-Pr | 1 | | id | | | MDCD | | esent | | | | | | HMO [place] | | | | | | + +--------+ +--------+ +---------+--------+ + +--------+ +--------+ + + | Guarantor Name | Accoun | Relation to | Date | Phone | Billing Address | | | t Type | Patient | of | | | | | | | | | | + +--------+ +--------+ + + | Chaparrita Jack | Person | Self | [birth year] | [id number] | | | al/[place]any | | 1995 | [phone] | [address] | | | jaime | | | [address] (Home) | [place] [address] | + +--------+ +--------+ + + Advance Directives + + + + + | Type | Date Recorded | Patient | Explanation | | | | Medical Record Specialist | | + + + + + | Power of | | | | | Family Preservation Officer | | | | + + + + + | Advance | 07/09/2014 9:32 | | | | Directive | AM | | | + + + + + + + + + + | Code Status | Date | Date | Comments | | | Activated | Inactivated | | + + + + + | Full Code | 07/09/2014 | 07/09/2014 | | | | 2:30 PM | 6:04 PM | | + + + + +
--- OUTSIDE RECORDS SUMMARY | ~2020-07-16 | XMS | Encounter Summary ---
Demographics + + + | Address | [address] | | | [place] [address] | + + + | Home Phone | | + + + | Preferred Language | Unknown | + + + | Marital Status | Single | + + + | Congregational Affiliation | Unknown | + + + | Race | White | + + + | Ethnic Group | Not or | + + + Author + + + | Author | [facility] | | | and Obieana | + + + | Organization | [facility] | | | [...] Team Providers + +------+ + | Care Supervisor Of Operations Name | Role | Phone | + +------+ + | Elva Cruz MD | PCP | | + +------+ + Encounter Details +--------+ + + + + | Date | Type | Department | Care Team | Description | +--------+ + + + + | 03/23/ | Orders Only | [facility] [place] | [place], | Chronic hepatitis C | | 2019 | | GASTROENTEROLOGY | [place] [address] | without hepatic coma | | | | [address] [place] | [address] [place] [address] | (HCC) (Primary Dx) | | | | [address] [place], [place] | [place], [place] | | | | | [address] | [address] | | | | | [phone] | | | +--------+ + + + [...] as of this encounter Plan of Treatment + +------+--------+ + + | Name | Type | Priori | Associated Diagnoses | Order Schedule | | | | ty | | | + +------+--------+ + + | Hepatitis B Core Ab, | Lab | Routin | Chronic hepatitis | Expected: | | IgM | | e | C without hepatic | 03/23/2019, Expires: | | | | | coma (HCC) | 07/21/2019 | + +------+--------+ + + | Hepatitis B Surface | Lab | Routin | Chronic hepatitis | Expected: | | Ab | | e | C without hepatic | 03/23/2019, Expires: | | | | | coma (HCC) | 07/21/2019 | + +------+--------+ + + | Hepatitis B Surface | Lab | Routin | Chronic hepatitis | Expected: | | Ag | | e | C without hepatic | 03/23/2019, Expires: | | | | | coma (HCC) | 07/21/2019 | + +------+--------+ + + | Hepatitis C | Lab | Routin | Chronic hepatitis | Expected: | | Genotyping | | e | C without hepatic | 03/23/2019, Expires: | | | | | coma (HCC) | 07/21/2019 | + +------+--------+ + + | Hepatitis C RNA, | Lab | Routin | Chronic hepatitis | Expected: | | Quant, NAAT | | e | C without hepatic | 03/23/2019, Expires: | | | | | coma (HCC) | 07/21/2019 | + +------+--------+ + + | CBC with | Lab | Routin | Chronic hepatitis | 1 Occurrences | | Differential | | e | C without hepatic | starting 03/23/2019 | | | | | coma (HCC) | until 07/21/2019 | + +------+--------+ + + | Comprehensive | Lab | Routin | Chronic hepatitis | Expected: | | Metabolic Panel | | e | C without hepatic | 03/23/2019, Expires: | | | | | coma (HCC) | 07/21/2019 | + +------+--------+ + + | Protime INR | Lab | Routin | Chronic hepatitis | Expected: | | | | e | C without hepatic | 03/23/2019, Expires: | | | | | coma (HCC) | 07/21/2019 | + +------+--------+ + + | Mitochondrial Ab, M2 | Lab | Routin | Chronic hepatitis | Expected: | | | | e | C without hepatic | 03/23/2019, Expires: | | | | | coma (HCC) | 06/23/2019 | + +------+--------+ + + | Smooth Muscle Ab | Lab | Routin | Chronic hepatitis | Expected: | | | | e | C without hepatic | 03/23/2019, Expires: | | | | | coma (HCC) | 07/23/2019 | + +------+--------+ + + | Oobph-1-Jedvguinzxs, | Lab | Routin | Chronic hepatitis | Expected: | | Total | | e | C without hepatic | 03/23/2019, Expires: | | | | | coma (HCC) | 07/21/2019 | + +------+--------+ + + | Ferritin | Lab | Routin | Chronic hepatitis | Expected: | | | | e | C without hepatic | 03/23/2019, Expires: | | | | | coma (HCC) | 07/21/2019 | + +------+--------+ + + | Iron and Transferrin | Lab | Routin | Chronic hepatitis | Expected: | | | | e | C without hepatic | 03/23/2019, Expires: | | | | | coma (HCC) | 07/21/2019 | + +------+--------+ + + | Ceruloplasmin | Lab | Routin | Chronic hepatitis | Expected: | | | | e | C without hepatic | 03/23/2019, Expires: | | | | | coma (HCC) | 07/21/2019 | + +------+--------+ + + documented as of this encounter Visit Diagnoses + + | Diagnosis | + + | Chronic hepatitis C without hepatic coma (HCC) - Primary | + + documented in this encounter"
--- OUTSIDE RECORDS SUMMARY | 2020-07-16 17:00 | XMS ---
PreManage Notification: CRISPIN WHALEY Security Sewing Machine Operator Floorperson Events No recent Security Events currently on file CRITERIA MET - Group Notification - PDMP CARE PROVIDERS HAILEY MORALES Chiropractor 11/15/2018-Current PHONE: [phone] Holly has no Care Guidelines for this patient. E.Don VISIT COUNT (12 MO.) 1 XIOMARA Mclean TOTAL 1 NOTE: Visits indicate total known visits. ED/UCC VISIT TRACKING (12 MO.) 07/16/2020 16:58 [facility] TYPE: Emergency COMPLAINT: - CHEST PAIN INPATIENT VISIT TRACKING (12 MO.) No inpatient visits to display in this time frame [email or web address]
[2020-07-16] MEDS ORDERED: CLONAZEPAM0.5 MG PO (17:16)
--- NOTE | 2020-07-17 10:11 | EKG ---
[facility] [address] [facility] [place] [address] Signed Sinus tachycardia Right atrial enlargement Borderline ECG No previous ECGs available Confirmed by KYUNG DEL TORO MD ([id number]) on 07/17/2020 10:11:22 AM Electronically Signed By: KYUNG DEL TORO MD 07/17/20 1011 PATIENT NAME: CRISPIN WHALEY ABAD Electrocardiogram DATE OF : [birth year] PHYSICIAN: KYUNG DEL TORO MD REPORT #: [id number] REPORT IS CONFIDENTIAL AND NOT TO BE RELEASED WITHOUT AUTHORIZATION
== END 2020-07-16 19:26 | disposition home or self-care (01) ==
LOC: ED 16:56
DX: F41.9 Anxiety disorder, unspecified (principal); D64.9 Anemia, unspecified; Z79.899 Other long term (current) drug therapy
CPT/HCPCS: 71045; 80053; 83735; 84484; 85025; 93005; 93010; 99285-25

== ENCOUNTER 2021-05-06 18:30 | Emergency (ER) | payer OTHER ==
[~2021-05-06] VITALS: Ht 170.2 cm; Wt 81.7 kg
[~2021-05-06 18:30] MED LIST changes: +CLONAZEPAM0.5 MG PO
--- OUTSIDE RECORDS SUMMARY | 2021-05-06 18:32 | XMS ---
PreManage Notification: CRISPIN WHALEY Security Stereoptic Projection Topographer Events No recent Security Events currently on file CRITERIA MET - PDMP - Group Notification CARE PROVIDERS KAVITHA SANCHEZ [facility] 07/17/2020-Current PHONE: [phone] HAILEY MORALES Chiropractor 11/15/2018-Current PHONE: [phone] Holly has no Care Guidelines for this patient. Care History Medical/Surgical 07/17/2020 [facility] - Patient is currently established with [facility]. If patient is seen in the ED during business hours. Please contact CHWs at [facility]. Care Recommendation: If this patient has had 5 or more Emergency Department visits in the last 12 months.\T\nbsp; Patient will require education on the scope and purpose of the ED as an acute care provider not a Primary Care Provider and should not be utilized for chronic conditions.\T\nbsp; These are guidelines and the provider should exercise clinical judgment when providing care. E.D. VISIT COUNT (12 MO.) [address] [facility] [address] [facility] [address] [facility] TOTAL 4 NOTE: Visits indicate total known visits. ED/UCC VISIT TRACKING (12 MO.) 05[facility]06/2021 18:[facility] [place] [facility] COMPLAINT: - VOMITING,DIARRHEA,ABD PAIN 12/28/2020 19:32 [facility] [place] TYPE: Emergency DIAGNOSES: - Tachycardia, unspecified - SHORTNESS OF BREATH RAPID HEART RATE 07/25/2020 11:21 [facility] [place] TYPE: Emergency DIAGNOSES: - Panic disorder [episodic paroxysmal anxiety] - Chest pain, unspecified - CHEST PAIN DIFFICULTY BREATHING 07/16/2020 16:58 [facility] [place] TYPE: Emergency COMPLAINT: - CHEST PAIN DIAGNOSES: - Anemia, unspecified - Anxiety disorder, unspecified - Other [facility] drug therapy - Chest pain, unspecified INPATIENT VISIT TRACKING (12 MO.) No inpatient visits to display in this time frame [email or web address]
[2021-05-06] MEDS ORDERED: SERTRALINE HCL50 MG PO (18:55)
== END 2021-05-06 20:42 | disposition home or self-care (01) ==
LOC: ED 18:30
DX: K52.9 Noninfective gastroenteritis and colitis, unspecified (principal); F17.200 Nicotine dependence, unspecified, uncomplicated; Z79.899 Other long term (current) drug therapy
CPT/HCPCS: 80053; 81001; 83690; 83735; 84703; 85025; 96374; 96375; 99284-25; J1170; J2405; J7030; J7121

== ENCOUNTER 2024-08-20 04:46 | Emergency (ER) | payer OTHER ==
[~2024-08-20] VITALS: Ht 170.2 cm; Wt 85.0 kg
[~2024-08-20 04:46] MED LIST changes: +SERTRALINE HCL50 MG PO
--- OUTSIDE RECORDS SUMMARY | 2024-08-20 04:48 | XMS ---
PreManage Notification: CRISPIN WHALEY Security Boarder Machine Events No recent Security Events currently on file CRITERIA MET - [facility] - 2 Visits in 30 Days CARE PROVIDERS Dana Ramsay Community Health Worker 12/14/2023-Current PHONE: [phone] HAILEY MORALESpractor 11/15/2018-Current PHONE: [phone] -[facility]+ Dentist: Center Administrator [facility] PHONE: [phone] Shailesh Lynne- Dentist: Center Administrator [facility] PHONE: [phone] Mikayla Acuna Nurse Practitioner: Family Current PHONE: Unknown [address] Current PHONE: Unknown Holly has no Care Guidelines for this patient. [facility] VISIT COUNT (12 MO.) [address] [place] [address] [facility] TOTAL 14 NOTE: Visits indicate total known visits. ED/UCC VISIT TRACKING (12 MO.) 08/20/2024 04:47 [facility] [place] TYPE: Emergency COMPLAINT: - ABD PAIN 08/10/2024 06:38 [facility] [place] TYPE: Emergency DIAGNOSES: - Opioid use, unspecified with withdrawal - NAUSEA VOMITING DIARRHEA SHAKY WEAKNESS 05/03/2024 03:23 [facility] [place] TYPE: Emergency DIAGNOSES: - Periapical abscess without sinus - Dental Pain 11/04/2023 12:11 [facility] [place] TYPE: Emergency DIAGNOSES: - Acute tonsillitis, unspecified - SORE THROAT NAUSEA PETTIT TROUBLE BREATHING 10/13/2023 13:03 [facility] [place] TYPE: Emergency DIAGNOSES: - Dizziness and giddiness - Other fatigue - DIZZINESS LETHARGIC 10[facility]04[facility]2023 11:[facility] DIAGNOSES: - Constipation, unspecified - Failed attempted termination of without complication - Other specified postprocedural states - Pelvic and perineal pain - abd pain 09/30/2023 14:00 [facility] [place] TYPE: Emergency COMPLAINT: - VOMITING FEELS FAINT DIAGNOSES: - VOMITING FEELS FAINT 09/28/2023 21:26 [facility] [place] TYPE: Emergency DIAGNOSES: - Vomiting of , unspecified - Emesis, 09/15/2023 08:23 [facility] [place] TYPE: Emergency DIAGNOSES: - Less than 8 weeks gestation of - PAIN LEFT LOWER ABD 09/13/2023 19:41 [facility] [place] TYPE: Emergency DIAGNOSES: - Less than 8 weeks gestation of - Palpitations - sob 09/09/2023 13:53 [facility] [place] TYPE: Emergency DIAGNOSES: - Cardiac arrhythmia, unspecified - SOB CHEST PAIN 08/23/2023 18:26 [facility] [place] TYPE: Emergency DIAGNOSES: - Adverse effect of unspecified drugs, medicaments and biological substances, subsequent encounter - Anxiety disorder, unspecified - Palpitations - HEART PALPITATIONS 08/22/2023 02:47 [facility] [place] TYPE: Emergency DIAGNOSES: - Palpitations - HEART PALPITATIONS 08/21/2023 18:36 [facility] [place] TYPE: Emergency DIAGNOSES: - Opioid abuse, uncomplicated - Palpitations - Panic disorder [episodic paroxysmal anxiety] - HEART PALPITATIONS INPATIENT VISIT TRACKING (12 MO.) No inpatient visits to display in this time frame [email or web address]
[2024-08-20] MEDS ORDERED: SODIUM CHLORIDE 0.9% 1,000 ML IV ONE (05:00)
[2024-08-20] MEDS ORDERED: ondansetron HCL 4 MG/2 ML VIAL IV ONE (05:00)
[2024-08-20] MEDS ORDERED: MORPHINE SULFATE 4 MG/ML VIAL IV ONE (05:00)
[2024-08-20 05:30] LABS: BASOPHILS 0.5 % (0-2); EOSINOPHILS 2.2 % (0-6); HEMOGLOBIN 14.3 g/dL (12.0-18.0); LYMPHOCYTES 29.9 % (24-44); MCHC 34.8 g/dl (30-36); MCV 80.5 fl (81-99); MONOCYTES 5.7 % (0-12); NEUTROPHILS 61.7 % (39-80); PLATELET COUNT 178 K/uL (140-440); RDW 13.2 (10.5-15.0)
[2024-08-20 05:46] LABS: ALBUMIN 3.4 g/dL (3.4-5.0); ALBUMIN/GLOBULIN RATIO 1.03 (1.1-2.4); ANION GAP 8.3 (7-21); BILIRUBIN, TOTAL 0.3 ng/dL (0.2-1.0); BUN/CREATININE RATIO 8.33 (6.0-28.6); CREATININE, SERUM 0.84 mg/dL (0.55-1.02); POTASSIUM 3.3 mmol/L (3.5-5.1); PROTEIN, TOTAL 6.7 g/dL (6.4-8.2)
[2024-08-20] MEDS ORDERED: MAGNESIUM CITRATE 300 ML BTL PO ONE (06:45)
[2024-08-20] MEDS ORDERED: LACTULOSE 20 GM/30 ML CUP PO ONE (06:45)
[2024-08-20 07:15] LABS: INFLUENZA B NAA NEGATIVE (NEGATIVE); RESPIRATORY SYNCYTIAL VIR NAA NEGATIVE (NEGATIVE)
[2024-08-20] MEDS ORDERED: ESCITALOPRAM OX10 MG PO (07:18)
[2024-08-20] MEDS ORDERED: DIAZEPAM5 MG PO (07:19)
[2024-08-20] MEDS ORDERED: LACTULOSE10 GM PO (07:24)
[2024-08-20 07:39] LABS: BILIRUBIN, URINE NEGATIVE (negative); BLOOD/HGB, URINE NEGATIVE (Negative); KETONE, URINE NEGATIVE (Negative); LEUK ESTERASE, URINE NEGATIVE (negative); NITRITE, URINE NEGATIVE (negative); PH, URINE 5.5 (5-7)
[2024-08-20] MEDS ORDERED: ONDANSETRON ODT4 MG PO (07:39)
[2024-08-20 07:43] VITALS: BP 101/65
[2024-08-20 09:06] LABS: AMPHETAMINES, URINE NEGATIVE (NEGATIVE); BARBITURATES, URINE NEGATIVE (NEGATIVE); BENZODIAZEPINE, URINE NEGATIVE (NEGATIVE); BUPRENORPHINE, URINE NEGATIVE (NEGATIVE); CANNABINOID, URINE NEGATIVE (NEGATIVE); COCAINE, URINE NEGATIVE (NEGATIVE); ECSTASY, URINE NEGATIVE (NEGATIVE); FENTANYL, URINE POSITIVE (NEGATIVE); METHADONE, URINE NEGATIVE (NEGATIVE); OPIATES, URINE POSITIVE (NEGATIVE); OXYCODONE, URINE NEGATIVE (NEGATIVE); PHENCYCLIDINE, URINE NEGATIVE (NEGATIVE)
== END 2024-08-20 07:45 | disposition home or self-care (01) ==
LOC: ED 04:46
PROVIDERS: Family Medicine
DX: K59.00 Constipation, unspecified (principal); F17.200 Nicotine dependence, unspecified, uncomplicated; Z79.899 Other long term (current) drug therapy
CPT/HCPCS: 36415; 74018; 80053; 80307; 81003; 83690; 84703; 85025; 87502; 96361; 96374; 96375; 99284-25; J2270; J2405; J7030; U0002